=== PATIENT | female | born 1935 | race Caucasian/White ===

== ENCOUNTER 2022-03-01 18:49 | Emergency (ER) | payer MEDICARE, SELFPAY ==
[2022-03-01 19:06] VITALS: BP 160/79; PULSE 82; RESP 18; TEMP 36.6; O2SAT 98; BMI 26.6
--- NOTE | 2022-03-01 19:37 | CRLHL7_ITS ---
For Patients: As a result of the Century Cures Act, medical imaging exams and procedure reports are released immediately into your electronic medical record. You may view this report before your referring provider. If you have questions, please contact your health care provider. INDICATION: Shortness of breath. TECHNIQUE: AP portable chest. FINDINGS: Clear lungs. Normal heart size and pulmonary vascularity. Normal included skeleton. IMPRESSION: Negative portable chest. Dictated by Theodore Cline MD @ 03/01/2022 8:07:02 PM (Electronically Signed)
[2022-03-01 20:11] LABS: Basophils Absolute Auto 0.03 K/uL (0.00-0.30); Basophils Percent Auto 0.3 % (0.0-3.0); Eosinophils Absolute Auto 0.08 K/uL (0.00-0.50); Eosinophils Percent Auto 0.8 % (0.0-7.0); Hematocrit 42.5 % (33.0-51.0); Hemoglobin* 14.2 gm/dL (12.0-16.0); Immature Granulocytes Abs Auto 0.02 K/uL (0.00-0.30); Lymphocytes Percent Auto 16.4 % (20-44); Mean Corpuscular HGB Conc 33 gm/dL (32-36); Mean Corpuscular Hemoglobin 31 pg (26-34); Mean Corpuscular Volume 92 fL (80-100); Monocytes Percent Auto 10.6 % (0.0-11.0); Neutrophils Absolute Auto 7.34 K/uL (1.7-7.0); Neutrophils Percent Auto 71.7 % (42.0-72.0); Platelet Count* 274 K/uL (140-440); RDW Coefficient of Variation % 12.4 % (11.5-15.5); Red Blood Count 4.62 m/uL (4.00-5.20); White Blood Count* 10.24 K/uL (4.50-11.00)
[2022-03-01 20:13] LABS: Slide Review Reflex No
--- NOTE | 2022-03-01 20:14 | ED_ITS ---
HPI - General Adult General Chief complaint: Unspecified Complaint, Adult Stated complaint: Shortness of breath and upper extremity tingling Time Seen by Provider: 03/01/22 19:19 History of Present Illness HPI narrative: Patient is an 87-year-old woman with history of congestive heart failure who presents stating that she is having increasing difficulties with pins and needle sensation in her upper and lower extremities particularly at night. She has had no fevers no chills no night sweats no orthopnea no PND no nausea no vomiting no lower extremity edema. She states she is increasingly anxious and would like some help with her anxiety. Related Data Home Medications Medication Instructions Recorded Confirmed diltiazem HCl 240 mg mg PO 03/01/22 capsule,extended release 24 hr pantoprazole 40 mg tablet,delayed mg PO 03/01/22 release potassium chloride 20 mEq meq PO 03/01/22 tablet,extended release(part/cryst) sacubitril 97 mg-valsartan 103 mg tab 03/01/22 tablet (Entresto) torsemide 10 mg tablet mg 03/01/22 Allergies Allergy/AdvReac Type Severity Reaction Status Date / Time levofloxacin [From Levaquin] Allergy that was a Verified 03/01/22 19:12 bad one Quinolones Allergy Verified 03/01/22 19:12 diphenhydramine AdvReac Unknown Verified 03/01/22 19:12 [From Benadryl] metoprolol AdvReac Verified 03/01/22 19:12 Review of Systems Status of ROS: Reports: 10 or more systems reviewed and unremarkable except as noted in History and below PFSH PFS Social History Smoking Status: Former smoker How often do you have a drink containing alcohol: 4 or more times a week How many standard drinks containing alcohol do you have on a typical day: 1 or 2 AUDIT-C Alcohol total score: 4 Non-prescribed substance use: denies use Exam Narrative: Exam Narrative: EXAM GENERAL: Patient appears comfortable and well. EYES: No scleral icterus. ENT: Tympanic membranes and oropharynx normal. THYROID: no thyroid nodules or thyromegaly. LYMPH: No supraclavicular or cervical lymphadenopathy. SKIN: Visible skin seen during exam normal or with benign process only. EXT: No dependent lower extremity pedal edema. HEART: Regular rate and rhythm with no murmurs, rubs, or gallops. LUNGS: Clear to auscultation bilaterally with no crackles or wheezes. ABD: Soft, non tender, non distended. PSYCH: Good eye contact, speech is not pressured. Const: Vital Signs, click to edit/add: Vital Signs - 24 hr 03/01/22 19:06 03/01/22 20:21 Temperature 97.8 F Pulse Rate [Left P ulse Oximeter] 82 81 Respiratory Rate 18 18 Blood Pressure [Ri ght Upper Arm] 160/79 H 176/89 H Pulse Oximetry 98 96 Oxygen Delivery Me thod Room Air Room Air Course Course Hospital Course: Two-view of the chest is unremarkable upon my review EKG shows mild left axis deviation upon my review with no other acute abnormalities. CBC basic metabolic panel also unremarkable upon my review. Reevaluation(s) Reevaluation #1: Results reviewed with patient. Like assistance with her anxiety. Time: 20:30 Vital Signs Vital signs: Initial Vital Signs Temperature 97.8 F 03/01/22 19:06 Temperature Source Temporal Artery Scan 03/01/22 19:06 Pulse Rate 82 03/01/22 19:06 Respiratory Rate 18 03/01/22 19:06 Blood Pressure 160/79 H 03/01/22 19:06 Blood Pressure Mean 106 03/01/22 19:06 Blood Pressure Position Sitting 03/01/22 19:06 Pulse Oximetry 98 03/01/22 19:06 Oxygen Delivery Method 03/01/22 19:06 Vital Signs Temperature 97.8 F 03/01/22 19:06 Pulse Rate 82 03/01/22 19:06 Respiratory Rate 18 03/01/22 19:06 Blood Pressure 160/79 H 03/01/22 19:06 Pulse Oximetry 98 03/01/22 19:06 Oxygen Delivery Method 03/01/22 19:06 Temperature 97.8 F 03/01/22 19:06 Pulse Rate 81 03/01/22 20:21 Respiratory Rate 18 03/01/22 20:21 Blood Pressure 176/89 H 03/01/22 20:21 Pulse Oximetry 96 03/01/22 20:21 Oxygen Delivery Method 03/01/22 20:21 Medical Decision Making Lab Data Labs: Lab Results 03/01/22 Range/Units 19:58 WBC 10.24 (4.50-11.00) K/uL RBC 4.62 (4.00-5.20) m/uL Hgb 14.2 (12.0-16.0) gm/dL Hct 42.5 (33.0-51.0) % MCV 92 (80-100) fL MCH 31 (26-34) pg MCHC 33 (32-36) gm/dL RDW Coeff of [place] 12.4 (11.5-15.5) % Plt Count 274 (140-440) K/uL Neut % (Auto) 71.7 (42.0-72.0) % Lymph % (Auto) 16.4 L (20-44) % [place] % (Auto) 10.6 (0.0-11.0) % Eos % (Auto) 0.8 (0.0-7.0) % Baso % (Auto) 0.3 (0.0-3.0) % Neut # (Auto) 7.34 H (1.7-7.0) K/uL Lymph # (Auto) 1.70 (0.90-2.90) K/uL [place] # (Auto) 1.10 H (0.00-0.90) K/UL Eos # (Auto) 0.08 (0.00-0.50) K/uL Baso # (Auto) 0.03 (0.00-0.30) K/uL Abs Immat Gran (auto) 0.02 (0.00-0.30) K/uL Discharge Plan Discharge Clinical Impression: Anxiety Condition: Stable Instructions: Anxiety (ED) Activity Level: No Restrictions Discharge Diet: Regular Prescriptions: No Action diltiazem HCl 240 mg capsule,extended release 24hr PO torsemide 10 mg tablet potassium chloride 20 mEq tablet,ER particles/crystals PO Label Comments: TAKE 3 TABLETS BY MOUTH ONCE DAILY WITH A MEAL pantoprazole 40 mg tablet,delayed release (DR/EC) PO Label Comments: TAKE 1 TABLET BY MOUTH EVERY DAY FOR REFLUX Entresto 97-103 mg tablet Label Comments: TAKE 1 TABLET BY MOUTH TWICE DAILY Follow Up/Referrals: Jonnathan Cobian MD [Primary Care Provider] - Stand Alone Forms: [employer] Info Instructions
[2022-03-01 20:21] VITALS: BP 176/89; PULSE 81; RESP 18; O2SAT 96
[2022-03-01 20:34] LABS: Chloride* 100 mmol/L (96-114); Potassium* 3.9 mmol/L (3.6-5.1); Sodium* 134 mmol/L (135-149)
[2022-03-01 20:37] LABS: Blood Urea Nitrogen* 22 mg/dL (7-30); Carbon Dioxide* 23 mmol/L (20-32); Creatinine* 1.1 mg/dL (0.5-1.5); Est. Creatinine Clearance* 30.93; Estimated Glomerular Filt Rate 49 ml/min; Glucose* 110 mg/dL (60-115)
== END 2022-03-01 21:09 | disposition home or self-care (01) ==
PROVIDERS: Emergency Provider Internal Medicine; PCP Family Medicine
DX: F41.9 Anxiety disorder, unspecified (principal)
CPT/HCPCS: 36415; 71045; 80048; 85025; 93005; 99283; 99284; 99285

== ENCOUNTER 2023-02-24 06:47 | Outpatient (CLI) | payer MEDICARE, SELFPAY | END 2023-02-24 06:48 | disposition home or self-care (01) | PROVIDERS: PCP Internal Medicine; Visit Provider Family Medicine | DX: R30.0 Dysuria (principal) | CPT/HCPCS: 87086; 87186 ==

== ENCOUNTER 2023-03-03 13:44 | Outpatient (CLI) | payer MEDICARE, SELFPAY ==
--- NOTE | 2023-03-03 14:00 | CRLHL7_ITS ---
For Patients: As a result of the Century Cures Act, medical imaging exams and procedure reports are released immediately into your electronic medical record. You may view this report before your referring provider. If you have questions, please contact your health care provider. BILATERAL SCREENING MAMMOGRAM WITH COMPUTER-AIDED DETECTION TECHNIQUE: CC and MLO views were obtained. These mammographic images have been obtained using full-field digital technique. These mammographic images were interpreted with the benefit of computer-aided detection. COMPARISON FILM: 05/29/17, 04/18/16, 01/26/15. FINDINGS: There are scattered areas of fibroglandular density IMPRESSION: There is no radiographic evidence for malignancy. ASSESSMENT: BI-RADS Category 1: Negative RECOMMENDATION: Routine screening mammogram in 1 year. A lay language report of this examination will be provided to the patient. Geo Marin M.D. Diagnostic Radiologist [email or web address] [place]/carlitos be/Dictated by: Geo Marin MD @ 03/06/2023 1:08:00 PM (Electronically Signed)
== END 2023-03-03 13:45 | disposition home or self-care (01) ==
LOC: MAMMO 13:45
PROVIDERS: PCP Internal Medicine; Visit Provider Internal Medicine
DX: Z12.31 Encounter for screening mammogram for malignant neoplasm of breast (principal)
CPT/HCPCS: 77067

== ENCOUNTER 2023-04-01 14:08 | Emergency (ER) | payer MEDICARE, SELFPAY ==
[2023-04-01 14:19] VITALS: BP 155/70; PULSE 81; RESP 16; TEMP 36.9; O2SAT 97; BMI 29.4
[2023-04-01 14:24] LABS: Appearance Urine Clear (Clear); Bilirubin Urine Negative (Negative); Blood Urine Negative (Negative); Color Urine Yellow (Yellow); Glucose Urine Negative (Negative); Ketones Urine Negative (Negative); Leukocyte Esterase Urine 1+ (Negative); Nitrite Urine Negative (Negative); Protein Urine Negative (Negative); Urobilinogen Urine 0.2 (0.2-1.0); pH Urine 6.5 (5.0-8.5)
--- OUTSIDE RECORDS SUMMARY | 2023-04-01 14:35 | XMS_ITS | Continuity of Care Document ---
Author Name Unknown Organization [facility] Address [address] [address] [place] [address] Phone Care Team Providers Care Scientist/Engineer Name Role Phone Inocencio Lechuga MD Unavailable Unavailable Allergies, Adverse Reactions, Alerts Substance Reaction Status Criticality levofloxacin Active No Information DIPHENHYDRAMINE HCL Reaction Unknown Active No I nformation Quinolones Reaction Unknown Active No Informat ion Medications Medication Instructions Dosage Effective Dates (start - stop) Status Comments Advair Diskus 100 mcg-50 mcg/dose powder for inhalation inhale 1 puff by inhalation route every 6 hours - Active amlodipine 5 mg tablet take 1 tablet by oral route every day 5 MG - Active Imodium A-D 2 mg tablet take 1 tablet by oral route after 1st loose stool and 1 tablet (2 mg) after each next bowel movement; do not exceed 16 mg in 24hrs 2 MG - Active metoprolol tartrate 50 mg tablet take 1 tablet by oral route 2 times every day with meals 50 MG - Active colestipol 1 gram tablet take 2-4 tablet by mouth daily mid day. Avoid other meds 2 hrs before/after. - Active spironolactone 25 mg tablet take 0.5 tablet by ORAL route every day 12.5 MG - Active atorvastatin 20 mg tablet take 1 tablet by oral route every day 20 MG - Active Culturelle 10 billion cell capsule take 1 capsule by mouth 3 times daily - Active pantoprazole 40 mg tablet,delayed release take 1 tablet by oral route every day 40 MG - Active potassium chloride ER 20 mEq tablet,extended release take 1 tablet by oral route 2 times every day with food 20 MEQ - Active Procedures Procedure Date Offic/outpt E&m [facility] Offic/outpt E&m Estab Low-mod 6 Offic/outpt E&m Estab Mod-nj 2 16 Stool Kits Given C. Difficile Toxin Gene, GREGORIO Offic/outpt E&m Estab Mod-nj 2 16 Offic/outpt E&m Estab Low-mod 6 Offic/outpt E&m Estab Mod-nj 2 15 Breath Test Lactose Breath Test Fructose Sigmoidoscopy Flex; W/bx 1/mx 5 Level Iv-surg Path Gross/micro 15 Routine Serum Collection Offic/outpt E&m [facility] Routine Serum Collection C-reactive Prot Advance Directives Directive Yes / No Effective Date File Name No Information Encounters Encounter Description Practice Location Reason(s) For Visit Diagnoses Date Provider Providers Copied on Encounter [facility], [address] [address], [place], [id number], [place] tel:[phone] [facility] No Information 1 Ankush Painter. [address] [facility], [place], [id number] , [place]. tel: [phone] Offic/outpt E&m [facility], [address] [address], [place], [id number], [place] tel:[phone] [facility] GI Symptoms or Concerns (chief complaint) Lymphocytic colitisDietary counseling and surveillance 0 Sarwat Sun. [address] [facility], [address], [place], [id number] , [place]. [phone] Referring Provider: Referral Self. [facility], [address] [address], [place], [id number], [place] tel:[phone] [facility] No Information 0 Ankush Painter. [address] [address], [place], [place], [id number] , [place]. [phone] Offic/outpt E&m Estab Low-mod [facility], [address] [address], [place], [id number], [place] tel:[phone] [facility] GI Symptoms or Concerns (chief complaint) Gastroesophageal reflux disease, esophagitis presence not specifiedLymphoc ytic colitisDietary counseling and surveillanceElev ated blood-pressure reading, w/o diagnosis of htn 6 Hannah Alcantar. [address] [place] [address], [id number] , [place]. [phone] Referring Provider: Referral Self. Offic/outpt E&m Estab Mod-hi 2 [facility], [address] [address], [place], [id number], [place] tel:[phone] [facility] GI Symptoms or Concerns (chief complaint) Lymphocytic colitisDietary counseling and surveillanceElev ated blood-pressure reading, w/o diagnosis of htn 6 Geoff Monsalve. [address] [facility], [address] [address], [place], [place], [id number] , [place]. [phone] Referring Provider: Jonnathan Deleon, [address] [place] [address], [address]. tel:[phone] [facility], [address] [address], [place], [id number], [place] tel:[phone] [facility] Other specified noninfective gastroenteritis and colitis 6 Edstrshante Up. [address] [facility], [facility] [address], [facility] [place], [id number] , [place]. [phone] Referring Provider: Referral Self. Offic/outpt E&m Estab Mod-hi 2 [facility], [address] [address], [place], [id number], [place] tel:[phone] [facility] GI Symptoms or Concerns (chief complaint) Microscopic colitisDietary counseling and surveillance 6 Ankita Up. [address] [facility], [facility] [address], [facility] [place], [id number] , [place]. [phone] Referring Provider: Jonnathan Deleon, [address] [place] [address], [address]. tel:[phone] Offic/outpt E&m Estab Low-mod [facility], [address] [address], [place], [id number], [place] tel:[phone] [facility] GI Symptoms or Concerns (chief complaint) Microscopic colitisDiarrheaD ietary counseling and surveillance 6 Hannah Alcantar. [address] [facility], [address] [address], [facility] [place], [id number] , [place]. tel: [phone] Referring Provider: Referral Self. Offic/outpt E&m Estab Mod-hi 2 [facility], [address] [address], [place], [id number], [place] tel:[phone] [facility] GI Symptoms or Concerns (chief complaint) Microscopic colitis 5 Chyna Nolan. [address] [facility], [facility] [address], [facility] [place], [id number] , [place]. tel: [phone] Referring Provider: Referral Self. [facility], [address] [address], [place], [id number], [place] tel:[phone] [facility] No Information 5 Hannah Alcantar. [address] [facility], [facility] [address], [facility] [place], [id number] , [place]. tel: [phone] Referring Provider: Referral Self. [facility], [address] [address], [place], [id number], [place] tel:[phone] [facility] No Information 5 Hannah Alcantar. [address] [facility], [address] [address], [place], [place], [id number] , [place]. tel: [phone] Referring Provider: Referral Self. [facility], [address] [address], [place], [id number], [place] tel:[phone] [facility] Diarrhea, unspecifiedOther specified noninfective gastroenteritis and colitis 0 5 Hannah Alcantar. [address] [address], [facility] [place], [id number] , [place]. tel: [phone] Referring Provider: Referral Self. [facility], [address] [address], [place], [id number], [place] tel:[phone] [facility] No Information 0 5 Hannah Alcantar. [address] [address], [facility] [place], [id number] , [place]. tel: [phone] Referring Provider: Referral Self. [facility], [address] [address], [place], [id number], [place] tel:[phone] [facility] Diarrhea 5 Hannah Alcantar. [address] [address], [facility] [place], [id number] , [place]. tel: [phone] Referring Provider: Referral Self. Offic/outpt E&m New Mod-hi [facility], [address] [address], [place], [id number], [place] tel:[phone] [facility] GI Symptoms or Concerns (chief complaint) DiarrheaElevated blood-pressure reading, w/o diagnosis of htn 2 5 Hannah Alcantar. [facility] [address], [id number] , [place]. tel: [phone] Referring Provider: Referral Self. Family History Family Member Type Diagnosis Age At Onset Sister Problem (finding) Daughter Problem (finding) Alive and well Sister Problem (finding) GERD Sister Problem (finding) cancer of the esophagus Immunizations Vaccine Date Status Comments Seasonal trivalent influenza vaccine, adjuvanted, preservative free administered Note: [facility] bi-direct ional interface ; Source: Other Registry Seasonal trivalent influenza vaccine, adjuvanted, preservative free administered Note: [facility] bi-direct ional interface ; Source: Other Registry zoster vaccine recombinant administered N ote: [facility] bi-directional interface ; Source: Other Registry zoster vaccine recombinant administered N ote: [facility] bi-directional interface ; Source: Other Registry Seasonal trivalent influenza vaccine, adjuvanted, preservative free administered Note: [facility] bi-direct ional interface ; Source: Other Registry influenza, high dose seasona l, preservative-free administered Note: [facility] bi-direct ional interface ; Source: Other Registry Prevnar administered Note: [facility] bi-d irectional interface ; Source: Other Registry Pneumococcal conjugate PCV administere d Source: Other Registry Influenza virus vaccine, injectable, quadrivalent, split virus, preservative free, 3 years or older Fluarix Quad administered Source: Source Unspe cified influenza, high dose seasona l, preservative-free administered Note: [facility] bi-direct ional interface ; Source: Other Registry Influenza, seasonal, injectable, preservative free administered Note: [facility] bi-directional interface ; Source: Other Registry tetanus toxoid, reduced diphtheria toxoid, and acellular pertussis vaccine, adsorbed administered Note: [facility] bi-direct ional interface ; Source: Other Registry tetanus toxoid, reduced diphtheria toxoid, and acellular pertussis vaccine, adsorbed administered Note: [facility] bi-direct ional interface ; Source: Other Registry Pneumovax 23 administered Note: [facility] bi-d irectional interface ; Source: Other Registry Pneumo (2 yrs or older)(PPV) administered Source: Other Registry Influenza, seasonal, injectable, preservative free administered Note: [facility] bi-directional interface ; Source: Other Registry Influenza, seasonal, injectable administe red Note: [facility] bi- directional interface ; Source: Other Registry Influenza, seasonal, injectable administe red Note: [facility] bi- directional interface ; Source: Other Registry tetanus and diphtheria toxoi ds, adsorbed, preservative free, for adult use (5 Lf of tetanus toxoid and 2 Lf of diphtheria toxoid) administered Note: [facility] bi-direct ional interface ; Source: Other Registry Influenza, seasonal, injectable administe red Note: [facility] bi- directional interface ; Source: Other Registry Influenza, seasonal, injectable administe red Note: [facility] bi- directional interface ; Source: Other Registry Influenza, seasonal, injectable administe red Note: [facility] bi- directional interface ; Source: Other Registry Influenza, seasonal, injectable administe red Note: [facility] bi- directional interface ; Source: Other Registry Influenza, seasonal, injectable administe red Note: [facility] bi- directional interface ; Source: Other Registry influenza virus vaccine, unspecified formulation administered Note: [facility] bi-di rectional interface ; Source: Other Registry influenza virus vaccine, unspecified formulation administered Note: [facility] bi-di rectional interface ; Source: Other Registry influenza virus vaccine, unspecified formulation administered Note: [facility] bi-di rectional interface ; Source: Other Registry Pneumovax 23 administered Note: [facility] bi-d irectional interface ; Source: Other Registry influenza virus vaccine, unspecified formulation administered Note: [facility] bi-di rectional interface ; Source: Other Registry Pneumo (2 yrs or older)(PPV) administered Source: Source Unspecified Payers Payer name Insurance type Covered alliance party ID Authoriza tisabi(s) [employer] Choice 16 [id number] Social History Type Description Quantity Date Captured Comments Sex Female Smoking Status No Information Chief Complaint And Reason For Visit No Information Reason For Referral Reason For Referral No Information Plan Of Treatment Date Type Action Status Goal Lifestyle education regardin g diet completed Goal Lifestyle education regardin g diet completed Goal Lifestyle education regardin g diet completed Goal Lifestyle education regardin g diet completed Apr-04-2016 Goal Lifestyle education regardin g diet completed Goal Lifestyle education regardin g diet completed Referral Ordered: follow-up visit with Doctor or NPPA 3 Weeks Appointment date/timeframe: 06/16/2015 ordered History Of Present Illness Encounter Date Complaint History Of Archie nt Illness GI Symptoms or Concerns I had th e pleasure of meeting Ms. Hyun Norris as a new patient, self-referred for evaluation of lymphocytic colitis.Hyun was last seen at [facility] in 2015 for evaluation of chronic lymphocytic colitis. It appears that the lymphocytic colitis was diagnosed in 2014 and she was in symptomatic remission on Imodium 4 mg daily. She had continued using Imodium on a daily basis and her bowel habits were regular up until approximately 2 months ago. She says spontaneously she began having 4 to 5 bowel movements in a day every day. Bowel movements were watery, nonbloody, and she had no significant urgency or abdominal pain. There were no new medicines or other instigating factors that she could identify. Her symptoms culminated in dehydration and a brief admission to the hospital for hydration. She had stool studies performed there that showed no infection, and a CT scan of the chest, abdomen and pelvis was performed which was also normal without any evidence of colitis or enteritis. GI Symptoms or Concerns The gaby ent is a very pleasant woman we have followed [facility] for lymphocytic colitis. She was doing quite well with her lymphocytic colitis until she was seen in February. At that time, she developed frequent loose bowel movements seven to ten times a day with abdominal cramping. She initially tried cholestyramine with no improvement in her symptoms and then took Imodium and Pepto-Bismol and Pepto-Bismol did not improve her symptoms. She was seen in our office and she underwent stool studies and started Imodium. She four weeks later was again seen in our office and at that time, she just finished a Z-Geovanni and her symptoms again had become significantly worse. Repeat stool studies were negative. She was treating her symptoms in at that time with Imodium.The patient returns today reporting that she is significantly better. She was able to stop her Zoloft and she has not been taking any nonsteroidal anti-inflammatory agents for three to six months. She says GI Symptoms or Concerns Ms. Carlos berry returns with diarrhea. Last year, she was diagnosed with lymphocytic colitis. She responded really well to budesonide. Her symptoms returned this year. She tried cholestyramine with initial success. She also has been taking Imodium. It does not work consistently. She has been taking two tablets a day. She just finished a course of Pepto-Bismol. It did not help at all. She took a Z-Geovanni two weeks ago, for upper respiratory symptoms. Her diarrhea got better. She is now having recurrence of the diarrhea. It often will be okay in the morning, then she will have uncontrollable diarrhea all afternoon and evening. She feels a bit dehydrated. She has been checked repeatedly for celiac disease because she has a granddaughter with it. She has not had another course of budesonide because of the cost. GI Symptoms or Concerns This is a pleasant 81-year-old female presenting to clinic today to discuss diarrhea.Patient was initially seen through our clinic in May 2015 for chronic loose stools and diarrhea. A subsequent flexible sigmoidoscopy showed edema from the rectum to the descending colon and biopsies were consistent with mild increased intra-epithelial lymphocytosis of suggestive of lymphocytic colitis. She was given a prescription for budesonide and this seemed to resolve her symptoms. She contacted our office in September with recurrent symptoms and was given a prescription for cholestyramine given the budesonide had been very expensive for her. She followed up in clinic in October of this year at which time it was felt that her symptoms likely were more related to a viral syndrome rather than a flare of lymphocytic colitis. It was noted that she did seem to respond to cholestyramine at that time.She states that two weeks ago, she began developing recurrent constant diarrhea with 10 t GI Symptoms or Concerns Patient is a very pleasant 80-year-old woman whom we follow in the gastrointestinal clinic for lymphocytic colitis.Patient was diagnosed with lymphocytic colitis last year by biopsies at colonoscopy. At that time, she was started on budesonide and did quite well with budesonide and was able to discontinue the medicine without reoccurrence of her diarrhea. Recently, she returned from [place], and the day after she arrived home from [place], she developed acute diarrhea. Patient reports that she had watery, crampy diarrhea six bowel movements an hour that lasted eight to 10 hours. She had so much diarrhea that she had to wear a diaper. The symptoms lasted eight to 10 hours and then have been gradually improving since then. The next day, she would have three to four bowel movements in and hour and slowly her bowel movements have decreased. We started her on cholestyramine to see if we could improve her symptoms and she feels like with the cholestyramine her symptoms have sig GI Symptoms or Concerns Hyun is a 80-year-old female with a medical history of hypertension, hyperlipidemia, and heartburn who presents today in followup for chronic diarrhea.The patient initially established care at the beginning of May. She came in to be seen after having roughly two years of loose stool. She mentioned fairly episodic progression without any blood. She could have on a bad day up to eight to 10 times of loose stool per day with abdominal cramping prior to a bowel movement.The patient did have stool studies which included negative stool culture, negative giardia, and negative C. diff. Other blood work included a normal TSH and a negative celiac serology.Patient underwent testing here in clinic with breath tests primarily fructose breath test which is negative as well as a lactose breath test which was negative. Fecal fat was negative as well as cyclospora was negative. A 5-HIAA was negative as well. A flexible sigmoidoscopy was completed on June 02. There was GI Symptoms or Concerns The gaby david is a very pleasant 80-year-old woman who presents for workup of diarrhea.The patient reports that she has had two years of diarrhea. She reports usually her diarrhea is on and off, and she felt like it was something she had eaten. She had a full workup for which she had been negative and she was controlling diarrhea without difficulty until six weeks ago, when she developed profuse diarrhea. She has diarrhea every day eight to ten times, at least she says it is liquid and accompanied by significant amount of gas and cramping and mucus. She has not noted any blood in her stool.Workup in the past at [place] for her intermittent diarrhea included a colonoscopy with biopsies in May, which was negative and EGD in May with biopsies that were negative and those were of May of 2014. She also had blood work and stool studies there and an upper GI series all were negative.Workup here in [place] over the past six weeks has included stool tests, w Functional Status Date Functional Assessmen t No Information Instructions Date Instruction Additional Infor juliann 1. Continue Imodium 4 mg daily.2. Add colestipol 2 to 4 g per day.3. Follow up in 4 weeks, and if no improvement, consider budesonide and if still no improvement, then colonoscopy.Thank you so much for involving me in the care of Ms. Norris. Related to Lymphocytic colitis Lifestyle education regarding di et Related to Dietary counseling and surveillance Lifestyle education regarding di et Related to Dietary counseling and surveillance Lifestyle education regarding di et Related to Dietary counseling and surveillance Patient will undergo C. Diff and stool culture. She will look into the type of Gatorade that she is consuming and see if it contains the sugar free additives or substitutes and change the Gatorade she is taking if this is the case. If she continues to have diarrhea, I asked her to stop the cholestyramine and start Pepto-Bismol three tablets three times a day for six weeks. She can use Imodium in addition to this if need. She will contact her primary care physician regarding her low blood pressure. She will continue to avoid NSAIDs. She will follow up in clinic in six weeks. Related to Microscopic colitis Lifestyle education regarding di et Related to Dietary counseling and surveillance Lifestyle education regarding di et Related to Dietary counseling and surveillance Lifestyle education regarding di et Related to Dietary counseling and surveillance Assessments Type Assessment Date No Information Patient Care Teams Name Effective Dates (start - stop) Status Members No Information
--- OUTSIDE RECORDS SUMMARY | 2023-04-01 14:35 | XMS_ITS | Continuity of Care Document ---
Author Name Unknown Organization [facility] Address [address] [place] [address] Phone Care Team Providers Care Faculty Neuropsychologist Name Role Phone Geo Ashraf DO Unavailable Unavailable Allergies, Adverse Reactions, Alerts Substance Reaction Status Criticality Quinolones Rash Active No Information DIPHENHYDRAMINE HCL Active No Infor mation Medications Medication Instructions Dosage Effective Dates (start - stop) Status Comments Advair Diskus 250 mcg-50 mcg/dose powder for inhalation inhale 1 puff by inhalation route 2 times every day in the morning and evening approximately 12 hours apart 1.00 puff - Active Hyzaar 100 mg-25 mg tablet take 1 tablet by oral route every day 1.00 tablet - Active furosemide 20 mg tablet 1 po qd by oral route Not Available - Active potassium 99 mg tablet tad by oral route - Active Combivent 18 mcg-103 mcg/actuation aerosol inhaler prn by inhalation route - Active PREDNISONE (unknown strength) take 1.5 by ORAL route every day PRN Not Available - Active levocetirizine 5 mg tablet take 1 tablet by oral route every day in the evening 5 MG - Active Singulair 10 mg tablet take 1 tablet by oral route every day in the evening 10 MG - Active pantoprazole 40 mg tablet,delayed release 1 po qd by oral route Not Available - Active simvastatin 20 mg tablet take 1 tablet by oral route every day in the evening 20 MG - Active metoprolol tartrate 50 mg tablet take 1 tablet by oral route 2 times every day with meals 50 MG - Active CALCIUM (unknown strength) 1 po bid by oral route Not Available - Active clonidine 0.1 mg tablet take 1 Tablet by oral route every bedtime 1 Tablet - Active Fish Oil 1,000 mg capsule 2 po qd by oral route - Active fluticasone propionate (bulk) 100 % powder - Active Procedures Procedure Date Offic/outpt E&m Estab Mod-in 2 15 Offic/outpt E&m Estab Mod-hi 2 15 Capsule Endoscopy Thru Ileum Offic/outpt E&m Estab Mod-hi 4 14 Offic/outpt E&m Estab Low-mod 4 Colonoscopy Flex; W/bx 1/mx Ugi Endo; W/bx 1/mx Advance Directives Directive Yes / No Effective Date File Name No Information Encounters Encounter Description Practice Location Reason(s) For Visit Diagnoses Date Provider Providers Copied on Encounter Offic/outpt E&m Estab Mod-hi 2 [facility], [address], [id number], [place] tel:[phone] CAMA Hoffmann anemia (chief complaint)i rritable bowel syndrome (chief complaint) Anemia, unspecIBS [facility] Geo. [address], [id number], [place]. tel:[phone] Referring Provider: Isabelle Sow MD, [address], [place], [address]. tel:[phone] Offic/outpt E&m Estab Mod-in 2 [facility], [address], [id number], [place] tel:[phone] CAMA [place] Hoff[place] diarrhea (chief complaint) IBSAnemia, unspec [facility]. [address], [id number], [place]. tel:[phone] Referring Provider: Isabelle Sow MD, [address], [place], [address]. tel:[phone] [facility], [address], [id number], [place] tel:[phone] CAMA [place]mann Diarrhea [facility] Geo. [address], [place], [place], [id number], [place]. tel:[phone] Referring Provider: Isabelle Sow MD, [address], [place], [address]. tel:[phone] [facility], [address], [place], [place], [id number], [place] tel:[phone] CAMA [place] Hoffmann Diarrhea [facility] Geo. [address], [place], [place], [id number], [place]. tel:[phone] Referring Provider: Isabelle Sow MD, [address], [place], [address]. tel:[phone] [facility], [address], [place], [id number], [place] tel:[phone] SUMEETA [place] Hoffmann Diarrhea [facility] Geo. [address], [place], [id number], [place]. tel:[phone] Referring Provider: Isabelle Sow MD, [address], [place], [address]. tel:[phone] Offic/outpt E&m Estab Mod-hi 4 [facility], [address], [place], [id number], [place] tel:[phone] SUMEETA [place] diarrhea (chief complaint) Diarrhea [facility] Geo. [address], [id number], [place]. tel:[phone] Referring Provider: Isabelle Sow MD, [address], [place], [address]. tel:[phone] Offic/outpt E&m Estab Low-mod [facility], [address], [id number], [place] tel:[phone] [facility] follow up (chief complaint) Diarrhea Levi Flores. [address] [place], [address], [place]. tel:[phone] Referring Provider: Isabelle Sow MD, [address] [place], [address]. tel:[phone] [facility], [address] [facility], [id number], [place] tel:[phone] [facility] Diarrhea Levi Flores. [address] [place], [address], [place]. tel:[phone] Referring Provider: Nelson Diaz MD, [address] [place], [address]. Family History Family Member Type Diagnosis Age At Onset Problem (finding) Family history of asthm a Problem (finding) Family history of diabetes mellitus type 2 Problem (finding) No family history of Ca ncer, colon Payers Payer name Insurance type Covered democrat ID Authoriza tion(s) Medicare Claims Administrators [id number] [facility] [id number] Social History Type Description Quantity Date Captured Comments Alcohol Use Details Unknown Caffeine Use Details Unknown Tobacco Use Status Smoking Status No Information Sex Female Chief Complaint And Reason For Visit From encounter dated '09/19/2014 14:30'. anemia (chief complaint). Description: The problem is improving. Pertinent negatives include abdominal pain, anorexia, chills, constipation, diarrhea and vomiting. Additional information: Last hgb was 11. UGI/SBFT was ok and she feels well. irritable bowel syndrome (chief complaint). Description: The problem is improving. Relieving factors include defecation. Pertinent negatives include abdominal pain, fatigue, fever, sense of incomplete evacuation, stool urgency, straining with bowel movement and vomiting. Additional information: shenotes she is doing well form this standpoint and is going back home in a month Reason For Referral Reason For Referral No Information Plan Of Treatment Date Type Action Status Referral Ordered: Rad Exam; Esoph ordered Referral Ordered: Abdomen Ap & Additional Oblique ordered Referral Ordered: CT Abdomen/Pelvis W/Contrast ordered Referral Ordered: Capsule Endoscopy Thru Ileum ordered History Of Present Illness Encounter Date Complaint History Of Prese nt Illness irritable bowel syndrome The pro blem is improving. Relieving factors include defecation. Pertinent negatives include abdominal pain, fatigue, fever, sense of incomplete evacuation, stool urgency, straining with bowel movement and vomiting. Additional information: she notes she is doing well form this standpoint and is going back home in a month anemia The problem is i mproving. Pertinent negatives include abdominal pain, anorexia, chills, constipation, diarrhea and vomiting. Additional information: Last hgb was 11. UGI/SBFT was ok and she feels well. diarrhea The problem is i mproving. Pertinent negatives include blood in stool, change in appetite, fever, rash and vomiting. Additional information: she now notes she is having more constipation issues. Reviewed her studies. Capsule was retained in the stomach. diarrhea (comments) It eventuall y passed and UGI/SBFT was negative for any obstructive phenomenom. CT prior to that was ok. diarrhea Onset: 2 years a go. The patient describes it as watery. It occurs randomly. The problem is without change. She denies aggravating factors. She denies relieving factors. Associated symptoms include change in appetite, cramping (abdominal), fecal incontinence, rash and weight loss. Pertinent negatives include anorexia, bloating, blood in stool, fever, joint pain, nausea and vomiting. Additional information: she has lost 20 pounds. Colon and bx along with egd and bx with levi were ok. Had another colon in [facility] this summer and it was fine also. diarrhea (comments) She has to w ear Depends. This occurs 75% of the time and then she will have either normal or constipated stools. Gave stool specimen 2 weeks ago that was assumedly ok. Blood work has showed an anemia with Hgb 10 and normal MCV, iron, B12, celiac panel. Ca was 10.2 with normal PTH. K was 3.2 and CRP was very high at 31. She denies any greasy/oily stools. Getting stressed out about all this Hospital follow up Seen at [facility] with chronic diarrhea, nausea and vomiting. Had neg EGD and colon there with biopsies. GI sxs have totally resolved. Pt just feels fatigued now. Functional Status Date Functional Assessmen t No Information Instructions Date Instruction Additional Infor mation No Information Assessments Type Assessment Date assessment Anemia, unspec assessment IBS Mental Status Date Cognitive Assessment Orientation - [place] ed to time, place, person, situation.Normal Orientation Patient Care Teams Name Effective Dates (start - stop) Status Members No Information
[2023-04-01 14:41] LABS: RBC Urine 0-2 (0-2); Squamous Epithelial Cell Urine Few (None-Few); WBC Urine 0-2 (0-5)
--- NOTE | 2023-04-01 14:41 | ED_ITS ---
HPI - General Adult General Date Seen: 04/01/23 Chief complaint: Urogenital Problems, Female Stated complaint: Suspected bladder infection Time Seen by Provider: 04/01/23 14:22 Source: patient Mode of arrival: ambulatory Limitations: no limitations History of Present Illness HPI narrative: Patient is an 88-year-old woman who had a UTI about a month ago which was treated with an antibiotic, she does not remember which 1 but she recalls she thinks that she took it more than 2 times a day. She has several antibiotic allergies. She says it worked well and she improved but a few hours ago she developed significant dysuria again. Review of her records show that she grew out a pansensitive E coli on February 24. She denies abdominal or flank pain, fevers, vomiting or other symptoms, aside from dysuria, urgency, frequency. She says aside from last month and today she does not typically get significant problems with all urinary tract infections. Related Data Home Medications Medication Instructions Recorded Confirmed diltiazem HCl 240 mg mg PO 03/01/22 02/24/23 capsule,extended release 24 hr pantoprazole 40 mg tablet,delayed mg PO 03/01/22 02/24/23 release torsemide 10 mg tablet mg 03/01/22 02/24/23 loperamide 2 mg capsule 2 mg PO Q6H PRN 01/17/23 02/24/23 mecobalamin (vitamin B12) 1,000 1,000 mcg PO QDAY 01/17/23 02/24/23 mcg lozenges sacubitril 97 mg-valsartan 103 mg 1 tab PO BID 01/17/23 02/24/23 tablet (Entresto) Previous Rx's Medication Instructions Recorded eszopiclone 2 mg tablet (Lunesta) 2 mg PO QHS Insomnia #30 tabs 01/17/23 potassium chloride 20 mEq 20 meq PO QDAY Hypokalemia #90 tabs 01/17/23 tablet,extended release(part/cryst) escitalopram oxalate 5 mg tablet 5 mg PO QDAY Anxiety #30 tabs 02/14/23 (Lexapro) sulfamethoxazole 400 1 tab PO BID #14 tabs 02/24/23 mg-trimethoprim 80 mg tablet (Bactrim) alprazolam 0.5 mg tablet 0.5 mg PO QHS PRN insomnia #30 tabs 03/29/23 Allergies Allergy/AdvReac Type Severity Reaction Status Date / Time Cephalosporins Allergy Intermediate Diarrhea Verified 04/01/23 14:19 levofloxacin [From Levaquin] Allergy Numbness Verified 04/01/23 14:19 Quinolones Allergy Anaphylaxis Verified 04/01/23 14:19 escitalopram AdvReac Intermediate Diarrhea Verified 04/01/23 14:19 diphenhydramine AdvReac Edema Verified 04/01/23 14:19 [From Benadryl] metoprolol AdvReac Rash Verified 04/01/23 14:[facility] Medical History (Updated 04/01/23 @ 15:02 by Naomi Vásquez MD) History of methicillin resistant Staphylococcus aureus infection (2013) ?Z86.14 - Personal history of Methicillin resistant Staphylococcus aureus infection (ICD-10) History of malignant neoplasm of skin (2013) ?Z85.828 - Personal history of other malignant neoplasm of skin (ICD-10) History of colonic polyps (04/06/10) ?Z86.010 - Personal history of colonic polyps (ICD-10) Surgical History (Updated 01/18/23 @ 11:16 by Hemalatha Hauser) History of lumbar discectomy (2005) ?Z98.890 - Other specified postprocedural states (ICD-10) History of bone marrow biopsy (05/22/20) ?Z98.890 - Other specified postprocedural states (ICD-10) History of hysterectomy (1997) ?Z90.710 - Acquired absence of both cervix and uterus (ICD-10) History of cataract extraction ?Z98.49 - Cataract extraction status, unspecified eye (ICD-10) History of arthroscopy of right knee (03/20/08) ?Z98.890 - Other specified postprocedural states (ICD-10) Family History (Updated 01/18/23 @ 11:17 by Hemalatha Hauser) Mother Coronary artery disease High blood pressure Father Coronary artery disease Brother Coronary artery disease High blood pressure Sister Esophageal cancer High blood pressure Social History (Updated 01/17/23 @ 13:40 by Etelvina Colon ~ DARIUS) What is your current living situation?: I presently have a place to live Problems where you live: no known problems In the past 12 months, utilities in danger of being shut off: no Smoking Status: Never smoker Do you use any of these nicotine containing products: None Second hand tobacco smoke exposure: No How often do you have a drink containing alcohol: 4 or more times a week How many standard drinks containing alcohol do you have on a typical day: 1 or 2 How often do you have six or more drinks on one occasion: Never AUDIT-C Alcohol total score: 4 Non-prescribed substance use: denies use How often does anyone, including family, friends and others, physically hurt you : How often does anyone, including family, friends and others, insult or talk down to you: How often does anyone, including family, friends and others, threaten you with harm: How often does anyone, including family, friends and others, scream or curse at you: Little interest or pleasure in doing things: not at all Feeling down, depressed, or hopeless: not at all service: No Exam Narrative: Exam Narrative: Vital signs reviewed, afebrile. Abdomen nontender, no CVA tenderness. Skin: Warm dry well perfused. Const: Vital Signs, click to edit/add: Vital Signs - 24 hr 04/01/23 14:19 Temperature 98.4 F Pulse Rate [Pulse Oximeter] 81 Respiratory Rate 16 Blood Pressure [Le ft Upper Arm] 155/70 H Pulse Oximetry 97 Oxygen Delivery Me thod Room Air Documenting provider has reviewed patient's vital signs: yes Course Course ED Course: UA today is negative. Patient really feel strongly that symptoms feel exactly like her previous UTI. She has only had symptoms for few hours and I suppose it is possible that the UA is lagging behind symptoms. I have agreed to cover her with an antibiotic, her allergy profile limits options and so I am putting her back on Bactrim. Discussed with her that at this time the urinalysis does not really supported diagnosis of UTI. She does not feel that this is likely related to something like yeast vaginitis her atrophic vaginitis. She has an appointment with Dr. Vaca next week and I have stress that they should discuss this further if symptoms are not entirely gone. Also discussed that peridium is an option for symptomatic control if she is not better over the next couple of days. For worsening such as fevers, vomiting, chills etcetera return to the emergency department. Vital Signs Vital signs: Initial Vital Signs Temperature 98.4 F 04/01/23 14:19 Temperature Source Temporal Artery Scan 04/01/23 14:19 Pulse Rate 81 04/01/23 14:19 Respiratory Rate 16 04/01/23 14:19 Blood Pressure 155/70 H 04/01/23 14:19 Blood Pressure Mean 98 04/01/23 14:19 Blood Pressure Position Sitting 04/01/23 14:19 Pulse Oximetry 97 04/01/23 14:19 Oxygen Delivery Method Room Air 04/01/23 14:19 Vital Signs Temperature 98.4 F 04/01/23 14:19 Pulse Rate 81 04/01/23 14:19 Respiratory Rate 16 04/01/23 14:19 Blood Pressure 155/70 H 04/01/23 14:19 Pulse Oximetry 97 04/01/23 14:19 Oxygen Delivery Method Room Air 04/01/23 14:19 Temperature 98.4 F 04/01/23 14:19 Pulse Rate 81 04/01/23 14:19 Respiratory Rate 16 04/01/23 14:19 Blood Pressure 155/70 H 04/01/23 14:19 Pulse Oximetry 97 04/01/23 14:19 Oxygen Delivery Method Room Air 04/01/23 14:19 Medical Decision Making Lab Data Labs: Lab Results 04/01/23 Range/Units 14:15 Urine Color Yellow (Yellow) Urine Appearance Clear (Clear) Urine pH 6.5 (5.0-8.5) Ur Specific [place] 1.010 (1.000-1.030) Urine Protein Negative (Negative) Urine Glucose (UA) Negative (Negative) Urine Ketones Negative (Negative) Urine Blood Negative (Negative) Urine Nitrite Negative (Negative) Urine Bilirubin Negative (Negative) Urine Urobilinogen 0.2 (0.2-1.0) Ur Leukocyte Esterase 1+ A (Negative) Urine RBC 0-2 (0-2) Urine WBC 0-2 (0-5) Ur Squamous Epith Cells Few (None-Few) Urine Bacteria None (None) Discharge Plan Discharge Clinical Impression: Dysuria Patient Disposition: Home, Self-Care Condition: Stable Instructions: Dysuria (ED) Additional Instructions: I am prescribing an antibiotic today as discussed. Your urinalysis however does not really suggest that your symptoms are caused by a bladder infection, therefore make sure to follow-up with Dr. Vaca next week as symptoms may have a different cause. If at any time you develop worsening symptoms such as fever, vomiting, abdominal pain etcetera, return to the emergency department. 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 Prescriptions: No Action Entresto 97-103 mg tablet 1 tab PO BID loperamide 2 mg capsule 2 mg PO Q6H PRN mecobalamin (vitamin B12) 1,000 mcg lozenge 1,000 mcg PO QDAY Rx Instructions: allow to dissolve in mouth OR may chew lightly before swallowing eszopiclone [Lunesta] 2 mg tablet 2 mg PO QHS Qty: 30 0RF potassium chloride 20 mEq tablet,ER particles/crystals 20 meq PO QDAY Qty: 90 3RF sulfamethoxazole-trimethoprim [Bactrim] 400-80 mg tablet 1 tab PO BID Qty: 14 0RF escitalopram oxalate [Lexapro] 5 mg tablet 5 mg PO QDAY Qty: 30 3RF diltiazem HCl 240 mg capsule,extended release 24hr PO torsemide 10 mg tablet pantoprazole 40 mg tablet,delayed release (DR/EC) PO Patient Comments: TAKE 1 TABLET BY MOUTH EVERY DAY FOR REFLUX alprazolam 0.5 mg tablet 0.5 mg PO QHS PRN (Reason: insomnia) Qty: 30 0RF Follow Up/Referrals: Fred Vaca MD [Primary Care Provider] - Stand Alone Forms: Elli Info Instructions
== END 2023-04-01 15:17 | disposition home or self-care (01) ==
PROVIDERS: Emergency Provider Emergency Medicine; PCP Internal Medicine
DX: R30.0 Dysuria (principal)
CPT/HCPCS: 81001; 99283

== ENCOUNTER 2023-04-04 10:29 | Outpatient (CLI) | payer MEDICARE, SELFPAY | END 2023-04-04 10:30 | disposition home or self-care (01) | PROVIDERS: PCP Internal Medicine; Visit Provider Internal Medicine | DX: R30.0 Dysuria (principal); E03.9 Hypothyroidism, unspecified; E78.5 Hyperlipidemia, unspecified | CPT/HCPCS: 80053; 84443; 87086; 87186 ==

== ENCOUNTER 2023-06-27 10:15 | Outpatient (CLI) | payer MEDICARE, SELFPAY ==
--- NOTE | 2023-06-27 10:45 | CRLHL7_ITS ---
For Patients: As a result of the Cures Act, medical imaging exams and procedure reports are released immediately into your electronic medical record. You may view this report before your referring provider. If you have questions, please contact your health care provider. DIGITAL DIAGNOSTIC LEFT MAMMOGRAM USING TOMOSYNTHESIS AND COMPUTER-AIDED DETECTION LEFT BREAST ULTRASOUND CLINICAL HISTORY: LEFT breast soreness. COMPARISON: 03/03/2023, 05/29/2017. TECHNIQUE: Digital LEFT mammogram in two projections. Tomosynthesis and CAD utilized. Real-time ultrasound imaging of LEFT breast with imaging documentation. BREAST COMPOSITION: The breasts are almost entirely fatty. FINDINGS: 3D CC and 3D MLO LEFT breast mammogram images submitted. No suspicious masses or architectural distortion. No suspicious calcifications or adenopathy. Targeted LEFT breast ultrasound performed in the periareolar tissues. No fibrocystic change or solid mass. Normal breast tissue is present. No suspicious findings. IMPRESSION: No evidence of malignancy. RECOMMENDATIONS: Routine annual BILATERAL screening mammography. Results and recommendations discussed with the patient. BI-RADS Category 2: Benign A lay language report of this examination will be provided to the patient. Dictated by Geo Marin MD @ 06/27/2023 12:16:16 PM darrelj/Dictated by: Geo Marin MD @ 06/27/2023 12:16:00 PM (Electronically Signed)
--- NOTE | 2023-06-27 11:15 | CRLHL7_ITS ---
For Patients: As a result of the Century Cures Act, medical imaging exams and procedure reports are released immediately into your electronic medical record. You may view this report before your referring provider. If you have questions, please contact your health care provider. PLEASE SEE DIGITAL DIAGNSOTIC LEFT MAMMOGRAM PERFORMED SAME DAY CRL:hdoa drummond/Dictated by: Geo Marin MD @ 06/27/2023 12:16:00 PM (Electronically Signed)
== END 2023-06-27 10:16 | disposition home or self-care (01) ==
LOC: MAMMO 10:16
PROVIDERS: PCP Internal Medicine; Visit Provider Internal Medicine
DX: N64.4 Mastodynia (principal)
CPT/HCPCS: 76642; 77065; G0279

== ENCOUNTER 2023-10-02 11:15 | Outpatient (RCR) | payer MEDICARE, SELFPAY ==
--- NOTE | 2023-09-18 14:55 | PT.OPE ---
PT [place] Outpatient Eval PT [facility] Outpatient Eval Start: 09/18/23 14:35 Freq: Status: Active Protocol: Document 09/18/23 14:36 EILEEN (Rec: 09/18/23 14:54 EILEEN [id number]) E-signed By Andrei Wilhelm, PT, ATC Physical Therapy Outpatient Evaluation Insurance Information Insurance Name Medicare B Medical Diagnosis M75.102 Unspecified rotator cuff tear or rupture of left shoulder, not traumatic M19.012 Primary osteoarthritis , left shoulder Treating Diagnosis L shld pain Referring MD Dillon Subjective Subjective Hyun reports constant left shoulder pain, 3/10 at rest and 8-9/10 with active movement. Progressive worsening over the past few months as she has assisted her with his care needs ( lifting him and walker or wheelchair). No MRI yet but xrays did show the presence of OA and spurring within the L glenohumeral joint. No PMHx of L shoulder injury or previous pain episodes. Hyun is left handed dominant. Symptoms create difficulty with ADL's and care for , also with sleeping. Injection- cortisone on 08/24/23, but this did not change her symptoms. Date of Last Physician Visit 09/14/23 Current Work Status Retired Preferred Name Hyun Precautions Therapy Limitations/Systems Review Not Limited Objective Range of Motion R shld AROM: [id number] L shld AROM: 150, 70, 5, 30 Passive ROM R: [id number] Passive ROM L: 155, 90, 45, 60 Strength R 5/5 all patterns L Flex 3+/5, ABD 3/5, ER and IR 2/5 Palpation Tender in the subacromial space and anterior shoulder- long head biceps Assessment Assessment/Impression Hyun is a pleasant 88 year old , left handed, woman experiencing constant L shoulder pain. Her pain and weakness creates difficulties with most ADL's and especially providing assistance to her who just had lower back surgery. Her arthrokinematic mobility is likely improper due to weakness/tearing in her cuff tendons. Skilled PT is recommended to lessen current pain amounts, encourage improved arthrokinematic mobility, improve ST and GH movement patterns and allow less compensation with ADL's and assistive care. Plan of Care Rehabilitation Potential Good Physical Therapy Goals 1.Independent and correct performance with L shoulder AAROM, scap stability and light shoulder strength ex.s. 2.Lessen L shld pain at rest to 1/10 and pain with use to 4 /10-ADL's and care of . 3.Improved sleeping ability, < 3 interruptions from pain per evening. Coordination/Communication With Referral Source Treatment Plan/Direct Interventions Joint Mobilization,Manual Therapy,Therapeutic Activities ,Therapeutic Exercises Direct Interventions Clarification Kinesiotaping Comments Frequency/Duration 1-2x per week 12 visits Patient Will Be Discharged From Therapy Independent w/HEP, Independently Progressing Evaluation Billing Untimed Code Treatment Minutes 30 PT Eval No Charge No Complexity Low Certification Information Initial Certification Date 09/18/23 Ending Certification Date 12/17/23 Provider Signature Shows Agreement With POC & Medical Necessity Physician Signature & Date Requested Please Sign/Date Here Physician Comment/Change : Physician NPI Number #
== END 2023-12-22 10:29 | disposition home or self-care (01) ==
PROVIDERS: PCP Internal Medicine; Visit Provider Orthopaedic Surgery Sports Medicine
DX: M75.102 Unspecified rotator cuff tear or rupture of left shoulder, not specified as traumatic (principal); M19.012 Primary osteoarthritis, left shoulder; M25.512 Pain in left shoulder; Z51.89 Encounter for other specified aftercare
CPT/HCPCS: 97110; 97140; 97161

== ENCOUNTER 2023-11-21 10:07 | Outpatient (CLI) | payer MEDICARE, SELFPAY ==
--- OUTSIDE RECORDS SUMMARY | 2023-11-24 11:29 | XMS_ITS | Clinical Summary ---
Author Name Unknown Organization [facility] Address [place], [place] [address] Care Team Providers Care Law Clerk Name Role Phone Chinyere Parnell NP Unavailable [phone] Nina Chaney MD Unavailable [phone] Jose Guardado MD Primary Care Provider [phone] Allergies Active Allergy Reactions Criticality Noted Date Comments Diphenhydramine Edema 01/17/2007 As of Mar 2017: taking Acetaminophen (Tylenol) PM ( tylenol and benadryl). Levofloxacin Other - Describe In Comment Field 01/17/2007 numb from top - boattom Metoprolol Rash Low 10/07/2020 Quinolones Syncope,Throat Swelling/Closing,Rash 07/01/2014 Medications Medication Sig Dispensed Refills Start Date End Date Status loperamide (IMODIUM A-D) 2 mg tabletIndications:D iarrhea, unspecified type Take 4mg by mouth with 1st loose stool, then 2mg with each subsequent loose stool. Max 16 mg in 24 hrs 0 06/04/2020 Active miscellaneous medical supply (BLOOD PRESSURE CUFF) miscIndications:Patricia méndez hypertension As directed. Home blood pressure monitoring for Essential hypertension Diagnosis. Upper arm automatic Cuff. 1 Each 06/19/2020 Active medical supply, miscellaneous (GRADUATED COMPRESSION STOCKINGS)Indicatio ns:Bilateral lower extremity edema For personal use. Length: calf Strength: 16-20 mmHg Circumference in cm: For calf: Ankle 28.5cm, Calf 40cm, Ankle to calf length 36cm. 1 Packet 07/30/2020 Active ENTRESTO 97 MG-103 MG TABLET 97-103 mg tablet Take 1 Tablet by mouth 2 times daily. 02/08/2021 Active torsemide (DEMADEX) 10 mg tablet Take 2 Tablets (20 mg) by mouth once daily. 0 03/25/2021 Active ALPRAZolam (XANAX) 0.25 mg tabletIndications:P anic attack Take 1 tablet by mouth daily as needed for a panic attack. 10 Tablet 04/06/2022 Active cyanocobalamin (Vitamin B-12) 1,000 mcg tabletIndications:V itamin B12 deficiency Take 1 Tablet (1,000 mcg) by mouth once daily. 90 Tablet 3 04/28/2022 Active hydrocortisone 2.5% creamIndications:De rmatitis of eyelid of left eye, unspecified type Apply topically to affected area(s) two times daily. 30 g 07/01/2022 Active mirtazapine (REMERON) 7.5 mg tabletIndications:G eneralized anxiety disorder Take 1 Tablet (7.5 mg) by mouth at bedtime. 30 Tablet 2 11/14/2022 Active potassium chloride (KLOR-CON) 20 mEq extended-release tablet (part/cryst)Indicat ions:SVT (supraventricular tachycardia) (HC),Hypokalemia TAKE 3 TABLETS BY MOUTH ONCE DAILY WITH A MEAL 90 Tablet 12/13/2022 Active famotidine (PEPCID) 40 mg tabletIndications:C hronic GERD TAKE 1 TABLET(40 MG) BY MOUTH EVERY DAY 90 Tablet 1 02/23/2023 Active dilTIAZem CD (CARDIZEM CD) 240 mg extended release 24 hr capsuleIndications: SVT (supraventricular tachycardia) (HC) TAKE 1 CAPSULE(240 MG) BY MOUTH EVERY DAY BEFORE A MEAL 90 Capsule 07/14/2023 Active Active Problems Problem Noted Date Diagnosed Date Heart failure with preserved ejection fraction, unspecified HF chronicity 11/14/2022 Vitamin B12 deficiency 04/28/2022 Vitamin D deficiency, unspecified 04/28/2022 Generalized anxiety disorder 03/09/2022 Stage 3b chronic kidney disease (CKD) 11/21/2021 Overview: October 2021: Creatinine worsened to 1.5, GFR 34, needs recheck. Racing heart beat 07/04/2020 Paroxysmal SVT (supraventricular tachycardia) ACP (advance care planning) 06/25/2020 Leukocytosis 06/25/2020 Overview: July 2020: Peripheral smear showing mild leukocytosis without obvious cause. Itching due to drug 06/15/2020 Overview: 2019: ongoing itching, has seen 2 Management Consultant, had 2 skin biopsy, Though to be a drug rash. May 2020: now stopping Metoprolol . 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 Chaney. Chronic cough 08/04/2016 Overview: Azithromycin. Stopped losartan, no improvement. Chest x-ray. Jul 2016: augmentin caused diarrhea. and referral to Dr. Cooney. Chest CT negative. May 2017: azithromycin again. Aug 2017: Chronic cough, saw ENT Dr Vásquez, Lymphocytic colitis 06/19/2015 Overview: Diagnosis made by Dr. Young of [facility], on biopsy May 2015, symptoms improved with budesonide 9mg orally. Mar 2016: symptoms recurrent. Lymphocytic colitis often is recurrent.?? It is linked to two medications you are taking - pantoprazole and Zoloft.?? I would stop both.?? If in two weeks you are still having problems, would do another course of budesonide.?? It may be available more cheaply from [facility].?? It is fine to increase Imodium to 6 pills daily.?? If your symptoms worsen, need to consider another test for C diff as you recently took antibiotics. from GI Consult note. follow up. Diarrhea 05/13/2015 Overview: 2013 and 2014: recurrent. Had work up in [place] 2013. Then Consult with Dr. Tanner April 2015 stool studies negative. Then Consult with Dr. Young of [facility], recommending Flex Sig and stop sertraline (Zoloft). May 2015: Fructose breath test and repeat stool studies negative. Sigmoidoscopy: COLON, LEFT RANDOM, BIOPSY: Mild surface intraepithlial lymphocytosis suggestive of lymphocytic colitis. Symptoms resolved with oral budesonide. Hyponatremia 03/03/2015 Overview: Feb 2015: Sodium 130. January 2016: Sodium 129. Primary osteoarthritis of both knees 01/30/2015 Overview: January 2015: x-rays bilateral knees. 2015: Dr. Elizalde did 1 cortisone and 1 hyaluronic acid injection to each knee. Mar 2017: Dr. Cobian did bilateral cortisone knee injections: great improvement. Aug 2017: Dr. Cobian did bilateral cortisone knee injections. Monocytosis 01/30/2015 Overview: Patient reports Leukocytosis dating back to her 20's. January 2015: peripheral smear showed no abnormality for WBC. UTI (lower urinary tract infection) 11/30/2014 Overview: November 2014: UTI, E Coli, pansensitive, treatment with bactrim. December 2019: UTI [facility], culture proteus > 100,000. Hypokalemia 11/30/2014 Prediabetes 11/30/2014 Overview: November 2014: fasting 102, Hemoglobin A1c was 6.3. Unspecified anemia 04/08/2010 Overview: November 2014: Hemoglobin 11.4. December;January 2015: Hemoglobin 11.3, ordered repeat CBC, retic, and peripheral smear shows mild anemia, normal WBC, no dysplasia, some rouleau, so ?consider SPEP? July 2020: Peripheral smear showing mild leukocytosis without obvious cause. Colon polyps 04/06/2010 Overview: Colonoscopy 03/2010 polyps repeat in 3 years Mixed hyperlipidemia 04/16/2009 Overview: May 2015: Was on Simvastatin (Zocor), due to possible trigger for lymphocytic colitis, stopping statin, Consider recheck Cholesterol. October 2019: Severe itchy rash, stopped Atorvastatin (Lipitor) to see if cause, not restarting. Unspecified asthma(493.90) 04/17/2007 SVT (supraventricular tachycardia) 01/17/2007 Overview: June 2020: started on diltiazem, Symptoms started with blood pressure adjustment and some stress. June 2020: Hospitalized 2nd time, and diltiazem increased. Essential hypertension 01/17/2007 Overview: January 2015: blood pressure slightly low, stopping clonidine, continue losartan/HCTZ and metoprolol. Mar 2015: stopping clonidine. October 2015: mildly low blood pressure, stop hydrochlorothiazide and continue other meds. May 2016: Stopping Losartan due to cough only. Spironolactone added. Feb 2020: stop amlodipine due to swelling. May 2020: Due to continued itching and rash, Dermatology requested stopping Metoprolol tartrate because of itching. Starting Hydrochlorothiazide for blood pressure. May 2020: Blood pressure was high, so was put on Metoprolol Succinate instead of previous Metoprolol tartrate and did not restart amlodipine. Itching started within 2 days of Metoprolol . June 2020: stopping Metoprolol because of itching. placing on amlodipine 10mg and hydrochlorothiazide 25mg morning. June 2020: Hospitalized 2nd time, and diltiazem increased. Nausea and vomiting Overview: Work up at [facility] and [place]. May 2015: work up diagnosis lymphocytic colitis, symptoms improved with steroid. BCC (basal cell carcinoma), face Overview: Right side of nose, Derm Dr. Golden Resolved Problems Problem Noted Date Diagnosed Date Resolved Date Type 2 diabetes, HbA1C goal < 8% 10/20/2021 11/14/2022 Acute renal failure superimp osed on stage 3 chronic kidney disease, unspecified acute renal failure type, unspecified whether stage 3a or 3b CKD 10/20/2021 11/14/2022 Anxiety 06/25/2020 11/14/2022 Overview: June 2020: starting sertraline (Zoloft). Mar 2021: Sertraline (Zoloft) 50mg increased from 25mg. Acquired hypothyroidism 06/19/20152 10/2022 Overview: diagnosis [place], approximately 2011, was on Levothyroxine 25mcg but ran out and not taking Apr 2015 when TSH was normal, no medication indicated at this time. Adjustment disorder with mix ed anxiety and depressed mood 03/03/2015 11/14/2022 Overview: New symptoms Summer 2014, started sertraline (Zoloft). Mar 2015: doubled sertraline (Zoloft) to 50mg. Immunizations Name Administration Dates Next Due Amb Influenza, Inact (High-d ose) (Flu Clinic Only) 05/13/2016 COVID-19 vaccine (ZootRock-Bio NTech 30mcg/0.3mL) 12YO+ BIVALENT PF, MDV 04/11/2022 COVID-19 vaccine (Pfizer-Bio NTech 30mcg/0.3mL) PF, MDV 09/19/2020,08/29/2020 Influenza, High-dose Inactivated 04/02/2015 Influenza, IIV3 (Age >=3 years) 04/08/20,04/08/2009,05/02/2008,2006 Influenza, Inactivated AIIV4 (Age 65+ Years) Preserv Free 04/06/2022,04/17/2021,04/06/2020 Influenza, Inactivated IIV3 (Age 65+ Years) Preserv Free 05/01/2019,03/29/2018,04/06/2017 Pneumococcal Poly,23-Valent (Pneumovax) 07/24/2011,05/15/1996 Pneumococcal conj 13-Valent (Prevnar 13) 07/09/2015 Td (Age >=7 Years) 01/07/2021 Td, Preservative Free (age > = 7 Years) 03/14/2008 Tdap 04/09/2012,07/24/2011 Zoster (Shingrix-RZV, recombinant) 03/10/2018, Zoster (Zostavax-ZVL, live) 12/25/2007 Family History Medical History Relation Name Comments Heart Disease Brother 1 Heart Disease Brother 2 Heart Disease Father Other Grandchild Celiac. Heart Disease Mother Cancer Sister Esophagus Relation Name Status Comments Brother 1 Brother 2 Father Grandchild Mother Sister Social History Tobacco Use Types Packs/Day Years Used Date Smoking Tobacco: Former Cigarettes 0.5 12 1 950 - 07/24/1961 Smokeless Tobacco: Never Tobacco Cessation:Counseling Given: Not Answered Alcohol Use Standard Drinks/Week Comments Yes 0 (1 standard drink = 0.6 oz pure alcohol) social, 1 drink per day wine as of 2014. PHQ-2 Answer Date Recorded PHQ-2 TOTAL SCORE 0 04/27/2022 Social Connections Answer Date Recorded Frequency of Communication with Friends and Fami ly Not on file 11/20/2022 Financial Resource Strain Answer Date R ecorded Difficulty of Paying Living Expenses 3 11/18/2021 Difficulty of Paying Living Expenses Not on file 11/18/2021 Food Insecurity Answer Date Recorded Worried About Running Out of Food in the Last Ye ar 1 11/18/2021 Transportation Needs Answer Date Record ed Lack of Transportation (Medical) 1 11/18/2021 Housing Stability Answer Date Recorded Unable to Pay for Housing in the Last Year 1 11/18/2021 Sex and Gender Information Value Date Recorded Sex Assigned at Not on file Gender Identity Not on file Sexual Orientation Not on file Obstetrics History Para Term AB IAB SAB Ectopic Multiple Livin g Live Births 2 2 Date Outcome GA Total Labor Labor/2nd/3rd Weight Sex Delivery Anes PTL Kim A1 A5 Name Cl in 11/19 F Vag 03/02 F Vag-Force ps Last Filed Vital Signs Vital Sign Reading Time Taken Comments Blood Pressure 130/60 11/14/2022 1:41 PM CDT Pulse 84 11/14/2022 1:41 PM CDT Temperature 36.8 ??C (98.2 ??F) 08/16/2022 2:01 PM CS T Respiratory Rate 16 08/16/2022 2:01 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[employer] Oxygen Saturation 100% 11/14/2022 1:41 PM CDT Inhaled Oxygen Concentration - - Weight 75.1 kg (165 lb 8 oz) 11/14/2022 1:41 PM CDT Height 161.3 cm (5' 3.5) 07/01/2022 12:47 PM CS T Body Mass Index 28.86 07/01/2022 12:47 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[employer] Plan of Treatment Health Maintenance Due Date Last Done Comments COVID-19 vaccine series ( season) 2023 04/11/2022, 09/19/2020, 08/29/2020 Medicare Wellness for age 65+ 04/07/2023 04/06/2022, 11/22/2010 Depression screening for age 12+ 04/27/2023 04/27/2022, 04/06/2022, 04/06/2022, Additional history exists BMI (ht and wt on same day) for age 18+ 07/01/2023 07/01/2022, 04/06/2022, 10/20/2021, Additional history exists Influenza for age 65+ 03/24/2024 04/06/2022 , 04/17/2021, 04/06/2020, Additional history exists Tetanus booster 01/07/2031 01/07/2021, 03/24, 07/24/2011, Additional history exists Tdap Completed 04/09/2012, 07/24/2011 Pneumococcal series for age 65+ Completed 07/09/2015, 07/24/2011, 05/15/1996 DEXA/DXA scan for age 65+ Completed 01/02/2018, Zoster (shingles) series for age 50+ Completed 03/10/2018, 12/25/2017, 12/25/2007 Procedures Procedure Name Priority Date/Time Associated Diagnosis Comments XR DXA BONE DENSITY 2 SITES AXIAL Routine 01/02/2018 1:58 PM CDT Other specified menopausal and perimenopausal disorders At risk for decreased bone density from Last 3 Months or Most Recently Relevant to Health Maintenance Results * XR DXA BONE DENSITY 2 SITES AXIAL (01/02/2018 1:58 PM CDT) Anatomical Region Laterality Modality Spine, HIPS, HIPL, HIPR Other Narrative 01/12/2018 4:36 PM CDT Please see scanned document for results of this study. Jonnathan Cobian MD DEXA from Last 3 Months or Most Recently Relevant to Health Maintenance Additional Health Concerns Infection Onset Date Last Indicated MRSA Clearance Comment:Infection Control Note: Hx of MRSA, surveillance criteria met, no need for further testing or isolation precautions. Do not delete or resolve the infection flag. 05/21/2020 05/21/2020 Advance Directives Documents on File Type Date Recorded Patient Composition Worker Expl anation Healthcare Directive 04/28/2021 021 * Full Code (Latest Code Status on File) Date Activated Date Inactivated Comments 07/04/2020 6:41 PM 07/05/2020 5:52 PM Question Answer Comments Code Status Discussion: Per Existing Order * Full Code Date Activated Date Inactivated Comments 06/25/2020 9:43 PM 06/26/2020 4:56 PM Question Answer Comments Code Status Discussion: Discussed * Full Code Date Activated Date Inactivated Comments 05/22/2020 5:54 AM 05/23/2020 2:28 AM Question Answer Comments Code Status Discussion: Not Discussed * Full Code Date Activated Date Inactivated Comments 10/20/2016 10:30 AM 10/21/2016 2:29 AM Care Teams Law Clerk Relationship Specialty [place] [id number] [place] [address] PCP - General Family Practice 11/14/22 Chinyere Parnell NP Hematology Nurse Practitioner - Adult 05/14/20 Nina Chaney MD [phone] (work) Hematology Oncology 05/14/20
== END 2023-11-21 10:08 | disposition home or self-care (01) ==
LOC: NFLDREF 11-24 11:27
PROVIDERS: PCP Internal Medicine; Referring Provider Internal Medicine; Visit Provider Internal Medicine
DX: N39.0 Urinary tract infection, site not specified (principal); B96.20 Unspecified Escherichia coli [E. coli] as the cause of diseases classified elsewhere
CPT/HCPCS: 87086; 87186

== ENCOUNTER 2024-01-16 11:00 | Outpatient (RCR) | payer MEDICARE, SELFPAY ==
--- NOTE | 2023-12-26 11:31 | PT.OPE ---
PT [facility] PT [facility] Outpatient Eval Start: 12/26/23 10:34 Freq: Status: Active Protocol: Document 12/26/23 10:34 EILEEN (Rec: 12/26/23 11:11 EILEEN [id number]) E-signed By Andrei Wilhelm, PT, ATC Physical Therapy Outpatient Evaluation Insurance Information Insurance Name Medicare B Medical Diagnosis M75.102 Unspecified rotator cuff tear or rupture of left shoulder, not traumatic Treating Diagnosis L shoulder pain L shoulder stiffness Referring MD Dillon Subjective Subjective Awakened a week ago with L shoulder pain. Remained stiff and sore following day creating difficulty with ADL's -dressing, washing hair, tucking shirt in behind back. Was seen previously in PT between the dates of 09/18/23- 10/02/23 with good outcome. Not certain why this episode occurred as she is not caring for her as she had been previously. Pain Comments 11/30 intermittent high Date of Last Physician Visit 12/21/23 Current Work Status Retired Preferred Name Hyun Precautions Therapy Limitations/Systems Review Not Limited Objective Range of Motion FLEX: R 175, L 170 IR behind back: R T3, L T10 Horz ADDUC: R 55, L 45, pain producing. Strength Gross 5/5, ABD and IR pain producing Posture Stands with rounded shoulders and forward head. Increased thoracic kyphosis Assessment Assessment/Impression Hyun is a pleasant and well known left handed 88 year old referred to PT because of reoccurring L shoulder pain and stiffness. Because she had good results with previous therapy in August, I expect similar results this session. She admits that she discontinued the exercise performance once the pain had subsided last time. Knows she needs to restart these and maintain going forward. 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 Skilled PT for manual therapy and therapeutic exercise should be effective in lessening her discomfort and allowing her full return to ADL's. Primary Functional Limitations Reaching above shoulder level Reaching across chest Reaching behind back Plan of Care Rehabilitation Potential Good Physical Therapy Goals 1.Independent and correct performance with her HEP for AAROM and light strengthening of the RC complex. 2.Able to wash opposite shoulder and hair without degree of pain currently experienced, < 2/10. 3.To sleep without interruption from L shoulder pain. Coordination/Communication With Referral Source Treatment Plan/Direct Interventions Joint Mobilization,Manual Therapy,Therapeutic Exercises Frequency/Duration 6 -12 visits Patient Will Be Discharged From Therapy Independent w/HEP, Independently Progressing Evaluation Billing Untimed Code Treatment Minutes 30 PT Eval No Charge No Complexity Low Certification Information Initial Certification Date 12/26/23 Ending Certification Date 03/27/24 Provider Signature Required Yes Provider Signature Shows Agreement With POC & Medical Necessity Physician NPI Number Write NPI# Here Physician Comment/Change : Physician Signature & Date Requested Please Sign/Date Here
== END 2024-04-16 14:14 | disposition home or self-care (01) ==
PROVIDERS: PCP Internal Medicine; Visit Provider Orthopaedic Surgery Sports Medicine
DX: M75.102 Unspecified rotator cuff tear or rupture of left shoulder, not specified as traumatic (principal); M12.812 Other specific arthropathies, not elsewhere classified, left shoulder; Z51.89 Encounter for other specified aftercare
CPT/HCPCS: 97110; 97140; 97161

== ENCOUNTER 2024-03-01 19:35 | Emergency (ER) | payer MEDICARE, SELFPAY ==
[2024-03-01 19:38] VITALS: BP 162/75; PULSE 78; RESP 20; TEMP 36.3; O2SAT 97; BMI 29.4
--- NOTE | 2024-03-01 19:57 | ED.GENADULT ---
HPI - General Adult General Chief complaint: Laceration/Wound Stated complaint: cut on R arm Time Seen by Provider: 03/01/24 19:45 Source: patient Mode of arrival: ambulatory Limitations: no limitations History of Present Illness HPI narrative: 89-year-old female coming in today with a laceration on her forearm. Patient was reaching over her head and scraped her forearm on some molding. Tetanus shot was updated in 2020. She denies any other injury. Related Data Home Medications ?Medication ?Instructions ?Recorded ?Confirmed sacubitril 97 mg-valsartan 103 mg 1 tab PO BID 01/17/23 12/21/23 tablet (Entresto) loperamide 2 mg capsule (Imodium 2 mg PO Q6H PRN 08/24/23 01/17/24 A-D) torsemide 10 mg tablet 20 mg PO QDAY 08/24/23 01/17/24 cyanocobalamin (vitamin B-12) 1,000 mcg PO QDAY 01/17/24 01/17/24 1,000 mcg capsule Previous Rx's ?Medication ?Instructions ?Recorded pantoprazole 20 mg tablet,delayed 20 mg PO QDAY GERD #90 tabs 05/19/23 release diltiazem HCl 240 mg 240 mg PO DAILY #90 caps 09/20/23 capsule,extended release 24 hr alprazolam 0.5 mg tablet 0.5 mg PO BID PRN anxiety #30 tabs 01/17/24 potassium chloride 20 mEq 20 meq PO QDAY Hypokalemia #30 tabs 02/12/24 tablet,extended release(part/cryst) Allergies Allergy/AdvReac Type Severity Reaction Status Date / Time Cephalosporins Allergy Intermediate Diarrhea Verified 12/13/23 15:34 levofloxacin [From Levaquin] Allergy Numbness Verified 01/17/24 09:57 Quinolones Allergy Anaphylaxis Verified 01/17/24 09:57 escitalopram AdvReac Intermediate Diarrhea Verified 12/13/23 15:34 diphenhydramine AdvReac Edema Verified 01/17/24 09:57 [From Benadryl] metoprolol AdvReac Rash Verified 01/17/24 09:57 Review of Systems Status of ROS: Reports: 6 or more systems reviewed and unremarkable except as noted in History and below [facility] Medical History Onychomycosis ?B35.1 - Tinea unguium (ICD-10) Dysuria ?R30.0 - Dysuria (ICD-10) Neck pain ?M54.2 - Cervicalgia (ICD-10) Shingles ?B02.9 - Zoster without complications (ICD-10) History of methicillin resistant Staphylococcus aureus infection (2013) ?Z86.14 - Personal history of Methicillin resistant Staphylococcus aureus infection (ICD-10) History of malignant neoplasm of skin (2013) ?Z85.828 - Personal history of other malignant neoplasm of skin (ICD-10) History of colonic polyps (04/06/10) ?Z86.010 - Personal history of colonic polyps (ICD-10) Surgical History History of Mohs micrographic surgery for skin cancer ?Z85.828 - Personal history of other malignant neoplasm of skin (ICD-10) ?Z98.890 - Other specified postprocedural states (ICD-10) History of lumbar discectomy (2005) ?Z98.890 - Other specified postprocedural states (ICD-10) History of bone marrow biopsy (05/22/20) ?Z98.890 - Other specified postprocedural states (ICD-10) History of hysterectomy (1997) ?Z90.710 - Acquired absence of both cervix and uterus (ICD-10) History of cataract extraction ?Z98.49 - Cataract extraction status, unspecified eye (ICD-10) History of arthroscopy of right knee (03/20/08) ?Z98.890 - Other specified postprocedural states (ICD-10) Family History Mother Coronary artery disease High blood pressure Father Coronary artery disease Brother Coronary artery disease High blood pressure Sister Esophageal cancer High blood pressure Social History What is your current living situation?: I presently have a place to live Problems where you live: no known problems In the past 12 months, utilities in danger of being shut off: no Smoking Status: Former smoker What tobacco products do you use: cigarettes Smoking quit date/years: >15 years ago Do you use any of these nicotine containing products: None Second hand tobacco smoke exposure: No How often do you have a drink containing alcohol: 4 or more times a week How many standard drinks containing alcohol do you have on a typical day: 1 or 2 How often do you have six or more drinks on one occasion: Never AUDIT-C Alcohol total score: 4 Non-prescribed substance use: denies use How often does anyone, including family, friends and others, physically hurt you: How often does anyone, including family, friends and others, insult or talk down to you: How often does anyone, including family, friends and others, threaten you with harm: How often does anyone, including family, friends and others, scream or curse at you: Little interest or pleasure in doing things: not at all Feeling down, depressed, or hopeless: not at all service: No Exam Narrative: Exam Narrative: Well-nourished well-developed elderly patient in no acute distress. Alert and oriented. Answers questions appropriately. Mood and affect are appropriate. Thoughts are goal oriented and rational. No tangential or magical thinking noted. Patient speaks in full sentences without needing to catch her breath. Extremities: Patient has a the flap of avulsed skin on the dorsal surface of the forearm, size is slightly smaller than a quarter. Avulsed skin includes just the top layer. Const: Vital Signs, click to edit/add: Vital Signs - 24 hr 03/01/24 19:38 Temperature 97.4 F L Pulse Rate [Pulse Oximeter] 78 Respiratory Rate 20 Blood Pressure [Ri ght Upper Arm] 162/75 H Pulse Oximetry 97 Oxygen Delivery Me thod Room Air Course Course ED Course: Area was cleaned. Skin was laid back in place. Next recent was applied. Steri-strips were placed. Vital Signs Vital signs: Initial Vital Signs Temperature 97.4 F L 03/01/24 19:38 Temperature Source Temporal Artery Scan 03/01/24 19:38 Pulse Rate 78 03/01/24 19:38 Respiratory Rate 20 03/01/24 19:38 Blood Pressure 162/75 H 03/01/24 19:38 Blood Pressure Mean 104 03/01/24 19:38 Blood Pressure Position Sitting 03/01/24 19:38 Pulse Oximetry 97 03/01/24 19:38 Oxygen Delivery Method Room Air 03/01/24 19:38 Vital Signs Temperature 97.4 F L 03/01/24 19:38 Pulse Rate 78 03/01/24 19:38 Respiratory Rate 20 03/01/24 19:38 Blood Pressure 162/75 H 03/01/24 19:38 Pulse Oximetry 97 03/01/24 19:38 Oxygen Delivery Method Room Air 03/01/24 19:38 Temperature 97.4 F L 03/01/24 19:38 Pulse Rate 78 03/01/24 19:38 Respiratory Rate 20 03/01/24 19:38 Blood Pressure 162/75 H 03/01/24 19:38 Pulse Oximetry 97 03/01/24 19:38 Oxygen Delivery Method Room Air 03/01/24 19:38 Medical Decision Making MDM Narrative Medical decision making narrative: Skin avulsion treated per above. Discharge Plan Discharge Clinical Impression: Avulsion of skin Patient Disposition: Home, Self-Care Condition: Stable Additional Instructions: Keep wound clean and dry. Do not soak such as taking baths or swimming. Follow-up as needed with your primary care provider. Watch for signs and symptoms of infection including increasing redness of the area, purulent drainage, or fever. If this occurs follow-up right away with your doctor or return to the ER. Change Band-Aid once daily. Do not remove the white tape (steri-trip) as this will fall off on its own. Prescriptions: No Action Entresto 97-103 mg tablet 1 tab PO BID cyanocobalamin (vitamin B-12) 1,000 mcg capsule 1,000 mcg PO QDAY alprazolam 0.5 mg tablet 0.5 mg PO BID PRN (Reason: anxiety) Qty: 30 0RF loperamide [Imodium A-D] 2 mg capsule 2 mg PO Q6H PRN torsemide 10 mg tablet 20 mg PO QDAY pantoprazole 20 mg tablet,delayed release (DR/EC) 20 mg PO QDAY Qty: 90 3RF diltiazem HCl 240 mg capsule,extended release 24hr 240 mg PO DAILY Qty: 90 3RF potassium chloride 20 mEq tablet,ER particles/crystals 20 meq PO QDAY Qty: 30 0RF Follow Up/Referrals: Fred Vaca MD [Primary Care Provider] - Stand Alone [facility] Info Instructions
[2024-03-01 20:03] VITALS: BP 155/74; PULSE 81; RESP 20; TEMP 36.7; O2SAT 97
[2024-03-01 20:04] VITALS: BP 155/74; PULSE 81; RESP 20; TEMP 36.7
== END 2024-03-01 20:05 | disposition home or self-care (01) ==
LOC: ED 20:00
PROVIDERS: Emergency Provider Family Medicine; PCP Internal Medicine
DX: S51.811A Laceration without foreign body of right forearm, initial encounter (principal); W26.9XXA Contact with unspecified sharp object(s), initial encounter
CPT/HCPCS: 99282; 99283

== ENCOUNTER 2024-04-21 22:07 | Emergency (ER) | payer MEDICARE, SELFPAY ==
[2024-04-21 22:12] VITALS: BP 138/81; PULSE 77; RESP 18; TEMP 36.1; O2SAT 98; BMI 29.2
--- NOTE | 2024-04-21 23:18 | ED.FALL ---
HPI - Fall General Time Seen by Provider: 23:18 Date Seen: 04/21/24 Chief Complaint: Fall/Minor Trauma Stated Complaint: fell tonight/hurt shoulder, knee Time Seen by Provider: 04/21/24 22:46 Source: patient and old records reviewed Mode of arrival: ambulatory Limitations: no limitations History of Present Illness HPI Narrative: 89-year-old female who presents today after fall. Patient tripped and fell, complains of left shoulder, left knee pain. She has been ambulatory since the fall. Did hit her head, not on blood thinners, no loss conscious. Denies neck pain, back pain, chest pain. No pelvic or hip pain. Patient notes that shoulder pain is feeling better. Related Data Home Medications ?Medication ?Instructions ?Recorded ?Confirmed sacubitril 97 mg-valsartan 103 mg 1 tab PO BID 01/17/23 03/20/24 tablet (Entresto) loperamide 2 mg capsule (Imodium 2 mg PO Q6H PRN 08/24/23 03/20/24 A-D) torsemide 10 mg tablet 20 mg PO QDAY 08/24/23 03/20/24 cyanocobalamin (vitamin B-12) 1,000 mcg PO QDAY 01/17/24 03/20/24 1,000 mcg capsule Previous Rx's ?Medication ?Instructions ?Recorded pantoprazole 20 mg tablet,delayed 20 mg PO QDAY GERD #90 tabs 05/19/23 release diltiazem HCl 240 mg 240 mg PO DAILY #90 caps 09/20/23 capsule,extended release 24 hr alprazolam 0.5 mg tablet 0.5 mg PO BID PRN anxiety #30 tabs 01/17/24 potassium chloride 20 mEq 20 meq PO QDAY Hypokalemia #90 tabs 04/08/24 tablet,extended release(part/cryst) Allergies Allergy/AdvReac Type Severity Reaction Status Date / Time Cephalosporins Allergy Intermediate Diarrhea Verified 03/20/24 14:01 levofloxacin [From Levaquin] Allergy Numbness Verified 03/20/24 14:01 Quinolones Allergy Anaphylaxis Verified 03/20/24 14:01 escitalopram AdvReac Intermediate Diarrhea Verified 03/20/24 14:01 diphenhydramine AdvReac Edema Verified 03/20/24 14:01 [From Benadryl] metoprolol AdvReac Rash Verified 03/20/24 14:01 [facility] Medical History Onychomycosis ?B35.1 - Tinea unguium (ICD-10) Dysuria ?R30.0 - Dysuria (ICD-10) Neck pain ?M54.2 - Cervicalgia (ICD-10) Shingles ?B02.9 - Zoster without complications (ICD-10) History of methicillin resistant Staphylococcus aureus infection (2013) ?Z86.14 - Personal history of Methicillin resistant Staphylococcus aureus infection (ICD-10) History of malignant neoplasm of skin (2013) ?Z85.828 - Personal history of other malignant neoplasm of skin (ICD-10) History of colonic polyps (04/06/10) ?Z86.010 - Personal history of colonic polyps (ICD-10) Surgical History History of Mohs micrographic surgery for skin cancer ?Z85.828 - Personal history of other malignant neoplasm of skin (ICD-10) ?Z98.890 - Other specified postprocedural states (ICD-10) History of lumbar discectomy (2005) ?Z98.890 - Other specified postprocedural states (ICD-10) History of bone marrow biopsy (05/22/20) ?Z98.890 - Other specified postprocedural states (ICD-10) History of hysterectomy (1997) ?Z90.710 - Acquired absence of both cervix and uterus (ICD-10) History of cataract extraction ?Z98.49 - Cataract extraction status, unspecified eye (ICD-10) History of arthroscopy of right knee (03/20/08) ?Z98.890 - Other specified postprocedural states (ICD-10) Family History Mother Coronary artery disease High blood pressure Father Coronary artery disease Brother Coronary artery disease High blood pressure Sister Esophageal cancer High blood pressure Social History What is your current living situation?: I presently have a place to live Problems where you live: no known problems In the past 12 months, utilities in danger of being shut off: no Smoking Status: Former smoker What tobacco products do you use: cigarettes Smoking quit date/years: >15 years ago Do you use any of these nicotine containing products: None Second hand tobacco smoke exposure: No How often do you have a drink containing alcohol: 4 or more times a week How many standard drinks containing alcohol do you have on a typical day: 1 or 2 How often do you have six or more drinks on one occasion: Never AUDIT-C Alcohol total score: 4 Non-prescribed substance use: denies use How often does anyone, including family, friends and others, physically hurt you: How often does anyone, including family, friends and others, insult or talk down to you: How often does anyone, including family, friends and others, threaten you with harm: How often does anyone, including family, friends and others, scream or curse at you: Little interest or pleasure in doing things: not at all Feeling down, depressed, or hopeless: not at all service: No Exam Narrative: Exam Narrative: General: Well-developed and well-nourished, no acute distress Head: Bruising of the left forehead, left eyebrow, and left lateral variable area. 2 cm full-thickness laceration of the left lateral eyebrow with skin tear above this Eyes: Pupils are equal reactive, extraocular motions intact, conjunctiva clear ENT: External nose and ears are normal, posterior pharynx without erythema or exudate Neck: No midline cervical tenderness, full spontaneous range of motion the neck, trachea midline, no adenopathy Heart: Regular rate and rhythm no murmurs or thrills Lungs: Clear to auscultation bilaterally without wheezes or crackles Abdomen: Soft, nontender, nondistended with active bowel sounds Musculoskeletal: Mild left posterior shoulder tenderness, left knee bruising, quadriceps mechanism intact and no joint effusion Neurologic: Awake, alert, and oriented x3, no gross focal neurologic deficits, cranial nerves intact as tested Psych: Mood and affect are appropriate Skin: No rashes Const: Vital Signs, click to edit/add: Vital Signs - 24 hr 04/21/24 22:12 Temperature 97.0 F L Pulse Rate [Left P ulse Oximeter] 77 Respiratory Rate 18 Blood Pressure [Ri ght Upper Arm] 138/81 Pulse Oximetry 98 Oxygen Delivery Me thod Room Air Course Course ED Course: Patient seen examined, reports shoulder pain and leg pain after fall tonight. On exam she has some tenderness of posterior shoulder but full range of motion the shoulder, says this is feeling better than initially. On the left knee she has some bruising, quadriceps mechanism intact, no joint effusion, suspect soft tissue injury. She does have a laceration of the left eyebrow and this is repaired. Procedure- laceration repair, left eyebrow, full-thickness 2 cm. Risks and benefits discussed with the patient, verbal consent was obtained. Lidocaine 1% was injected subcutaneously around the wound. Cleansed with wound cleanser. Explored, no foreign bodies found. Laceration was closed with three 5-0 Ethilon simple interrupted sutures. Patient tolerated this well. CT scan of the head ordered due to age and head injury. Vital Signs Vital signs: Initial Vital Signs Temperature 97.0 F L 04/21/24 22:12 Temperature Source Temporal Artery Scan 04/21/24 22:12 Pulse Rate 77 04/21/24 22:12 Pulse Rhythm Regular 04/21/24 22:12 Respiratory Rate 18 04/21/24 22:12 Blood Pressure 138/81 04/21/24 22:12 Blood Pressure Mean 100 04/21/24 22:12 Blood Pressure Position Sitting 04/21/24 22:12 Pulse Oximetry 98 04/21/24 22:12 Oxygen Delivery Method Room Air 04/21/24 22:12 Vital Signs Temperature 97.0 F L 04/21/24 22:12 Pulse Rate 77 04/21/24 22:12 Respiratory Rate 18 04/21/24 22:12 Blood Pressure 138/81 04/21/24 22:12 Pulse Oximetry 98 04/21/24 22:12 Oxygen Delivery Method Room Air 04/21/24 22:12 Temperature 97.0 F L 04/21/24 22:12 Pulse Rate 77 04/21/24 22:12 Respiratory Rate 18 04/21/24 22:12 Blood Pressure 138/81 04/21/24 22:12 Pulse Oximetry 98 04/21/24 22:12 Oxygen Delivery Method Room Air 04/21/24 22:12 Medications Administered Medications: Discontinued Medications Generic Name Dose Route Start Last Admin Trade Name Freq PRN Reason Stop Dose Admin Acetaminophen 1,000 mg 04/21/24 23:37 04/21/24 23:44 Acetaminophen 500 Mg Tablet PO 04/21/24 23:38 1,000 mg ONCE ONE Administration Discharge Plan Discharge Clinical Impression: Eyebrow laceration, Contusion of knee, left, Left shoulder strain Patient Disposition: Home, Self-Care Condition: Stable Instructions: Contusion in Adults (ED), Facial Laceration (ED) Additional Instructions: Tylenol and ibuprofen for pain Sutures to be removed in 1 week with your primary care provider Activity Level: Activity as Tolerated Discharge Diet: Regular Prescriptions: No Action Entresto 97-103 mg tablet 1 tab PO BID cyanocobalamin (vitamin B-12) 1,000 mcg capsule 1,000 mcg PO QDAY alprazolam 0.5 mg tablet 0.5 mg PO BID PRN (Reason: anxiety) Qty: 30 0RF loperamide [Imodium A-D] 2 mg capsule 2 mg PO Q6H PRN torsemide 10 mg tablet 20 mg PO QDAY pantoprazole 20 mg tablet,delayed release (DR/EC) 20 mg PO QDAY Qty: 90 3RF diltiazem HCl 240 mg capsule,extended release 24hr 240 mg PO DAILY Qty: 90 3RF potassium chloride 20 mEq tablet,ER particles/crystals 20 meq PO QDAY Qty: 90 1RF Follow Up/Referrals: Fred Vaca MD [Primary Care Provider] - Stand Alone Forms: [employer] Info Instructions
--- OUTSIDE RECORDS SUMMARY | 2024-04-21 23:30 | XMS_ITS | Continuity of Care Document ---
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 Difficile Toxin Gene, GREGORIO Offic/outpt E&m Estab Mod-ne 2 16 Offic/outpt E&m Estab Low-mod 6 Offic/outpt E&m Estab Mod-ne 2 15 Breath Test Lactose Breath Test Fructose Sigmoidoscopy Flex; W/bx 1/mx 5 Level Iv-surg Path Gross/micro 15 Routine Serum Collection Offic/outpt E&m [facility] Routine Serum Collection C-reactive Prot Advance Directives Directive Yes / No Effective Date File Name No Information Encounters Encounter Description Practice Location Reason(s) For Visit Diagnoses Date Provider Providers Copied on Encounter [facility], [address] [address], [place], [id number], [place] tel:[phone] Mo[facility] No Information 1 Ankush Painter. [address] [place] [address], [facility] [address], [place], [id number] , [place]. tel:[phone] Offic/outpt E&m [facility], [address] [address], [place], [id number], [place] tel:[phone] [facility] GI Symptoms or Concerns (chief complaint) Lymphocytic colitisDietary counseling and surveillance 0 Sarwat Sun. [address] [place] [address], [facility] [address], [place], [id number] , [place]. [phone] Referring Provider: Referral Self, USE FOR SELF REFERRALS. [facility], [address] [address], [place], [id number], [place] tel:[phone] [facility] No Information 0 Ankush Painter. [address] [place] [address], [id number] , [place]. tel: [phone] Offic/outpt E&m Estab Low-mod [facility], [address] [address], [place], [id number], [place] tel:[phone] [facility] GI Symptoms or Concerns (chief complaint) Gastroesophageal reflux disease, esophagitis presence not specifiedLymphoc ytic colitisDietary counseling and surveillanceElev ated blood-pressure reading, w/o diagnosis of htn 6 Hannah Alcantar. [address] [place] [address], [id number] , [place]. tel: [phone] Referring Provider: Referral Self, USE FOR SELF REFERRALS. Offic/outpt E&m Estab Mod-hi 2 [facility], [address] [address], [facility] [place], [id number], [place] tel:[phone] [facility] GI Symptoms or Concerns (chief complaint) Lymphocytic colitisDietary counseling and surveillanceElev ated blood-pressure reading, w/o diagnosis of htn 6 Geoff Monsalve. [facility] [address], [place], [place], [id number] , [place]. tel: [phone] Referring Provider: Jonnathan Deleon, [address] [place] [address], [address]. tel:[phone] [facility], [address] [address], [place], [id number], [place] tel:[phone] [facility] Other specified noninfective gastroenteritis and colitis 6 Ankita Up. [address] [facility], [facility] [address], [place], [place], [id number] , [place]. tel: [phone] Referring Provider: Referral Self, USE FOR SELF REFERRALS. Offic/outpt E&m Estab Mod-hi 2 [facility], [address] [address], [place], [id number], [place] tel:[phone] [facility] GI Symptoms or Concerns (chief complaint) Microscopic colitisDietary counseling and surveillance 6 Ankita Up. [address] [facility], [address] [address], [place], [place], [id number] , [place]. tel:[phone] Referring Provider: Jonnathan Deleon, [address] [place] [address], [address]. tel:[phone] Offic/outpt E&m Estab Low-mod [facility], [address] [address], [place], [id number], [place] tel:[phone] [facility] GI Symptoms or Concerns (chief complaint) Microscopic colitisDiarrheaD ietary counseling and surveillance 6 Hannah Alcantar. [address] [place] [address], [id number] , [place]. tel:[phone] Referring Provider: Referral Self, USE FOR SELF REFERRALS. Offic/outpt E&m Estab Mod-hi 2 [facility], [address] [address], [place], [id number], [place] tel:[phone] [facility] GI Symptoms or Concerns (chief complaint) Microscopic colitis 5 Chyna Nolan. [address] [facility], [place] [address] [address], [place], [place], [id number] , [place]. tel:[phone] Referring Provider: Referral Self, USE FOR SELF REFERRALS. [facility], [address] [address], [place], [id number], [place] tel:[phone] [facility] No Information 5 Hannah Alcantar. [address] [place] [address] [place], [place], [id number] , [place]. tel:[phone] Referring Provider: Referral Self, USE FOR SELF REFERRALS. [facility], [address] [address], [place], [id number], [place] tel:[phone] [facility] No Information 6 5 Hannah Alcantar. [address] [facility], [place] [address], [facility] [place], [id number] , [place]. tel:[phone] Referring Provider: Referral Self, USE FOR SELF REFERRALS. [facility], [address] [address], [place], [id number], [place] tel:[phone] [facility], [facility] Diarrhea, unspecifiedOther specified noninfective gastroenteritis and colitis 0- 5 Hannah Alcantar. [address] [facility] [place], [place] [address], [facility], [place], [id number] , [place]. tel: [phone] Referring Provider: Referral Self, USE FOR SELF REFERRALS. [facility], [address] [address], [place], [id number], [place] tel:[phone] [facility] No Information 0 5 Hannah Alcantar. [address] [facility], [address], [facility], [id number] , [place]. tel: [phone] Referring Provider: Referral Self, USE FOR SELF REFERRALS. [facility], [address] [address], [place], [id number], [place] tel:[phone] [facility], [facility] Diarrhea 5 Hannah Alcantar. [address] [facility] [place], [place] [address], [facility], [place], [id number] , [place]. tel: [phone] Referring Provider: Referral Self, USE FOR SELF REFERRALS. Offic/outpt E&m New Mod-hi [facility], [address] [address], [place], [id number], [place] tel:[phone] [facility] GI Symptoms or Concerns (chief complaint) DiarrheaElevated blood-pressure reading, w/o diagnosis of htn 2 5 Hannah Alcantar. [address] [facility] [place], [address], [place], [id number] , [place]. tel: [phone] Referring Provider: Referral Self, USE FOR SELF REFERRALS. Family History Family Member Type Diagnosis Age [...] Unspecified Payers Payer name Insurance type Covered libertarian ID Authoriza tisabi(s) Lamont Dan 16 [id number] Social History Type Description Quantity Date Captured [...] Date Complaint History Of Prese nt Illness GI Symptoms or Concerns I had th e pleasure of meeting Ms. Hyun Norris as a new patient, self-referred for evaluation of lymphocytic colitis.Hyun was last seen at [facility] in 2015 for evaluation of chronic lymphocytic [...] enteritis. GI Symptoms or Concerns The gaby hernandez is a very pleasant woman we have [...] of her diarrhea. Recently, she returned from [place], and the day after she arrived home from [place], she developed acute diarrhea. Patient reports that [...] was GI Symptoms or Concerns The gaby hernandez is a very pleasant 80-year-old woman who [...] in her stool.Workup in the past at [place] for her intermittent diarrhea included a colonoscopy with biopsies in May, which was negative and EGD in May with biopsies that were negative and those were of May of 2014. She also had blood work and stool studies there and an upper GI series all were negative.Workup here in [place] over the past six weeks has included [...]
--- OUTSIDE RECORDS SUMMARY | 2024-04-21 23:30 | XMS_ITS | Encounter Summary ---
Author Organization [facility] Address [address] [place] [address] Care Team Providers Care Casino Host Name Role Phone Unavailable Primary Care Provider Unavailabl e Reason for Referral * Outpatient (Routine) - Closed Specialty Diagnoses / Procedures Referred By Contac t Referred To Contact Diagnoses Unspecified Diastolic (Congestive) Heart Failure (HCC) Procedures DX Chest AP or PA and Lateral 2 Views Timur Torres M.D. [address] [place] [address] [facility] Referral ID Status Reason Start Date Expiration Date Visits Re quested Visits Authorized [id number] Closed 12/28/2021 12/28/2022 1 1 Reason for Visit * Outpatient (Routine) - Closed Specialty Diagnoses / Procedures Referred By Contac t Referred To Contact Diagnoses Unspecified Diastolic (Congestive) Heart Failure (HCC) Procedures DX Chest AP or PA and Lateral 2 [place] [address] [facility] Referral ID Status Reason Start Date Expiration Date Visits Re quested Visits Authorized [id number] Closed 12/28/2021 12/28/2022 1 1 Encounter Details Date Type Department Care Team (Latest Contact Info) Description 02/01/2024 9:17 AM CDT - 02/01/2024 11:59 PM CDT Hospital Encounter Department of Radiology, [facility], in [place], [place] [address] [place] [address] Timur Torres M.D. [address] [place] [address] Unspecified Diastolic (Congestive) Heart Failure (HCC) Discharge Disposition: Home or Self Care Social History Tobacco Use Types Packs/Day Years Used Date Smoking Tobacco: Former Cigarettes 0 01/20/1955 - 09/07/1969 Smokeless Tobacco: Never Alcohol Use Standard Drinks/Week Comments Yes 5 (1 standard drink = 0.6 oz pur e alcohol) [facility] Utilities Answer Date Recorded In the past 12 months has [employer], gas, oil, or water company threatened to shut off services in your home? No 01/29/2024 Social Connection and Isolat ion Panel [NHANES] Answer Date Recorded In a typical week, how many times do you talk on the phone with family, friends, or neighbors? More than three times a week 11/27/2020 How often do you get togethe r with friends or relatives? Twice a week 11/27/2020 How often do you attend chur ch or mormonism services? 1 to 4 times per year 11/27/2020 Do you belong to any clubs o r organizations such as caodaism groups, unions, fraternal or athletic groups, or school groups? No 11/27/2020 How often do you attend meet ings of the clubs or organizations you belong to? Never 11/27/2020 Are you , , di vorced, , never , or living with a partner? 11/27/2020 AUDIT-C Answer Date Recorded Q1: How often do you have a drink containing alc ohol? 2-3 times a week 11/27/2020 Q2: How many drinks containi ng alcohol do you have on a typical day when you are drinking? 1 or 2 11/27/2020 Q3: How often do you have si x or more drinks on one occasion? Never 11/27/2020 Overall Financial Resource Strain (CARDIA) Answe r Date Recorded How hard is it for you to pa y for the very basics like food, housing, medical care, and heating? Not hard at all 11/27/2020 [facility] - Occupational Stress Questionnaire Answer Date Recorded Do you feel stress - tense, restless, nervous, or anxious, or unable to sleep at night because your mind is troubled all the time - these days? Only a little 11/27/2020 Exercise Vital Sign Answer Date Recorde d On average, how many days pe r week do you engage in moderate to strenuous exercise (like a brisk walk)? 0 days Minutes of Exercise per Session Not on file 01/29/2024 Hunger Vital Sign Answer Date Recorded Within the past 12 months, y ou worried that your food would run out before you got the money to buy more. Never true 01/29/20 Within the past 12 months, t he food you bought just didn't last and you didn't have money to get more. Never true 01/29/2024 PRAPARE - Transportation Answer Date Re corded In the past 12 months, has l ack of transportation kept you from medical appointments or from getting medications? No 02/2024 In the past 12 months, has l ack of transportation kept you from meetings, work, or from getting things needed for daily living? No 01/29/2024 Nutrition Answer Date Recorded On average, how many serving s of fruits and vegetables do you eat per day (serving size is equal to 1 cup or approximately the size of a tennis ball)? 0-2 01/29/2024 Dental Answer Date Recorded Dental: Regular Dentist Yes 01/29/20 Employment Answer Date Recorded Employment status Retired 01/29/2024 Housing Stability Answer Date Recorded What is your living situation today? I have a [facility] place to live 01/29/2024 Education Answer Date Recorded What is the highest level of school you have completed or the highest degree you have received? 12th grade 10/31/2020 Sex and Gender Information Value Date Recorded Sex Assigned at Female 01/29/2024 12:46 PM CDT Gender Identity Female 10/31/2020 7:33 PM CDT Sexual Orientation Straight 10/31/2020 7: 33 PM CDT documented as of this encounter Medications at Time of Discharge Medication Sig Dispensed Refills Start Date End Date cyanocobalamin (Vitamin B-12) 1,000 mcg tablet Take 1 tablet by mouth daily. 04/28/2022 dilTIAZem CD (CARDIZEM CD/CARTIA XT) 240 mg 24 hr capsule Take 1 capsule by mouth daily. 10/28/2020 fluticasone propionate (FLONASE ALLERGY RELIEF NASAL) Administer 1 spray into nostril(s) as needed. loperamide (IMODIUM A-D) 2 mg tablet Take 1 tablet by mouth as needed. 06/04/2020 pantoprazole (Protonix) 20 mg EC tablet Take 1 tablet by mouth daily. 08/31/2020 potassium chloride (Klor-Con M) 20 mEq ER tablet Take 20 mEq by mouth daily. sacubitriL-valsartan (Entresto) 97-103 mg per tablet Take 1 tablet by mouth 2 (two) times a day. 180 tablet 3 02/01/2024 torsemide (Demadex) 20 mg tablet Take 1 tablet (20 mg total) by mouth daily. 90 tablet 3 02/01/2024 documented as of this encounter Plan of Treatment Not on file documented as of this encounter Procedures Procedure Name Priority Date/Time Associated Diagnosis Comments DX CHEST AP OR PA AND LATERAL 2 VIEWS RAD - Routine (most inpatients and all outpatients) 02/01/2024 9:26 AM CDT Unspecified Diastolic (Congestive) Heart Failure (HCC) documented in this encounter Results * DX Chest AP or PA and Lateral 2 Views (02/01/2024 9:26 AM CDT) Anatomical Region Laterality Modality Chest, Thoracic RST LOS, Tho racic ARZ LOS, Thoracic FLA LOS N/A Digital Radiography Impressions 02/01/2024 10:23 AM CDT Heart size and pulmonary vascularity are within normal limits. Aortic calcifications. Degenerative skeletal changes. No change since 12/28/2021. Narrative 02/01/2024 10:23 AM CDT EXAM: ??DX CHEST AP OR PA AND LATERAL 2 VIEWS Procedure Note Missy Tatum M.D. - 02/01/2024 EXAM: DX CHEST AP OR PA AND LATERAL 2 VIEWS IMPRESSION: Heart size and pulmonary vascularity are within normal limits. Aorticcalcifications. Degenerative skeletal changes. No change since 12/28/2021. Timur [facility] PROCEDURES documented in this encounter Visit Diagnoses Diagnosis Unspecified Diastolic (Congestive) Heart Failure (HCC) documented in this encounter
--- OUTSIDE RECORDS SUMMARY | 2024-04-21 23:30 | XMS_ITS | Encounter Summary ---
Author Organization [facility] Address [address] [place] [address] Care Team Providers Care Semaphore Operator Name Role Phone Unavailable Primary Care Provider Unavailabl e Encounter Details Date Type Department Care Team (Latest Contact Info) Description 02/01/2024 8:54 AM CDT - 02/01/2024 9:16 AM CDT Hospital Encounter Department of Laboratory Medicine and Pathology, [place], [place] [address] [place] [phone] Timur Torres M.D. [address] [place] [phone] Unspecified Diastolic (Congestive) Heart Failure (HCC) Discharge Disposition: Home or Self Care Social History Tobacco Use Types Packs/Day Years Used Date Smoking Tobacco: Former Cigarettes 0 01/20/1955 - 09/07/1969 Smokeless Tobacco: Never Alcohol Use Standard Drinks/Week Comments Yes 5 (1 standard drink = 0.6 oz pur e alcohol) [facility] Utilities Answer Date Recorded In the past 12 months has [employer], gas, oil, or water company threatened to [...] often do you attend chur ch or mosque services? 1 to 4 times per year 11/27/2020 Do you belong to any clubs o r organizations such as gnosticism groups, unions, fraternal or athletic groups, or [...] and heating? Not hard at all 11/27/2020 [facility] - Occupational Stress [...] money to buy more. Never true 01/29/20 24 Within the past 12 months, t he [...] Date Recorded Dental: Regular Dentist Yes 01/29/20 24 Employment Answer Date Recorded Employment status Retired 01/29/2024 Housing Stability Answer Date Recorded What is your living situation today? I have a [facility] place to live 01/29/2024 Education Answer [...] Take 1 tablet by mouth daily. 08/31/2020 documented as of this encounter Plan of Treatment Not on file documented as of this encounter Procedures Procedure Name Priority Date/Time Associated Diagnosis Comments LIPID PANEL, S Routine 02/01/2024 9:09 AM CDT Unspecified Diastolic (Congestive) Heart Failure (HCC) NT-PRO B-TYPE NATRIURETIC PEPTIDE (BNP), S Routine 02/01/2024 9:09 AM CDT Unspecified Diastolic (Congestive) Heart Failure (HCC) CBC WITHOUT DIFFERENTIAL, B Routine 02/01/2024 9:09 AM CDT Unspecified Diastolic (Congestive) Heart Failure (HCC) COMPREHENSIVE METABOLIC PANEL, S/P Routine 02/01/2024 9:09 AM CDT Unspecified Diastolic (Congestive) Heart Failure (HCC) documented in this encounter Results * (ABNORMAL) Lipid Panel (02/01/2024 9:09 AM CDT) Triglycerides 100 mg/dL 02/01/2024 10:39 AM CDT DTL Comment: ----REFERENCE VALUE---- Normal: <150 mg/dL Borderline High: 150-199 mg/dL High: 200-499 mg/dL Very High: > or =500 mg/dL Cholesterol, Total 238(H) mg/dL 2023 10:39 AM CDT DTL Comment: ----REFERENCE VALUE---- Desirable: < 200 mg/dL Borderline High: 200 - 239 mg/dL High: > or = 240 mg/dL Cholesterol, LDL, Calculated 126 mg/dL 02/01/2024 10:39 AM CDT DTL Comment: ----REFERENCE VALUE---- Desirable: <100 mg/dL Above Desirable: 100-129 mg/dL Borderline High: 130-159 mg/dL High: 160-189 mg/dL Very High: >=190 mg/dL ----ADDITIONAL INFORMATION---- LDL cholesterol calculated using the Hernandez/NIH equation. Cholesterol, HDL, S 95 >=50 mg/dL 02/01/2024 10:39 AM CDT DTL Cholesterol, Non-HDL, Calculated 143 mg/dL 02/01/2024 10:39 AM CDT DTL Comment: ----REFERENCE VALUE---- Desirable: <130 mg/dL Above Desirable: 130-159 mg/dL Borderline High: 160-189 mg/dL High: 190-219 mg/dL Very High: > or =220 mg/dL Fasting (8 HR or more) No 02/01/2024 9:09 AM CDT DTL Blood (Blood, Venous) 02/01/2024 9:09 AM CDT 02/01/2024 9:50 AM CDT Timur Torres M.D. LAB BLOOD ADD-ON Performing Organization Address City/[facility] Co de Phone Number [facility] [address] [place], [place] [id number] [place] [address] * NT-Pro B-Type Natriuretic Peptide (BNP) (02/01/2024 9:09 AM CDT) Pathologist [facility] NT-Pro BNP 215 <=540 pg/mL 02/01/2024 10:39 AM CDT DTL Comment: NT-proBNP values less than 300 pg/mL have a 99% negative predictive value for excluding acute congestive heart failure. A cutoff of 1200 pg/mL for patients with an eGFR<60 yields a diagnostic sensitivity and specificity of 89% and 72% for acute congestive heart failure. A diagnostic NT-proBNP cutoff of 1800 pg/mL has been suggested in adults over 75 years of age in the absence of renal failure. Blood (Blood, Venous) 02/01/2024 9:09 AM CDT 02/01/2024 9:50 AM CDT Timur Torres M.D. LAB BLOOD ADD-ON Performing Organization Address [facility] Co de Phone Number [facility] [address] [place], [place] [id number] [place] [phone] * (ABNORMAL) Comprehensive Metabolic Panel (02/01/2024 9:09 AM CDT) [facility] Potassium, S 4.1 3.6 - 5.2 mmol/L 02/01/2024 10:39 AM CDT DTL Sodium, S 137 135 - 145 mmol/L 02/01/2024 10:39 AM CDT DTL Chloride, S 99 98 - 107 mmol/L 02/01/2024 10:39 AM CDT DTL Bicarbonate, S 26 22 - 29 mmol/L 02/01/2024 10:39 AM CDT DTL Anion Gap 12 7 - 15 02/01/2024 10:39 AM CDT DTL BUN (Blood Urea Nitrogen), S 17 6 - 21 mg/dL 02/01/2024 10:39 AM CDT DTL Creatinine 1.29(H) 0.59 - 1.04 mg/dL 02/01/2024 10:39 AM CDT DTL Estimated GFR (eGFR) 40(L) >=60 mL/min/BS A 02/01/2024 10:39 AM CDT DTL Comment: Estimated GFR calculated using the 2020 CKD_EPI creatinine equation. Calcium, Total, S 9.6 8.8 - 10.2 mg/dL 02/01/2024 10:39 AM CDT DTL Glucose, S 123 70 - 140 mg/dL 02/01/2024 10:39 AM CDT DTL Protein, Total, S 7.0 6.3 - 7.9 g/dL 02/01/2024 10:39 AM CDT DTL Albumin, S 4.5 3.5 - 5.0 g/dL 02/01/2024 10:39 AM CDT DTL Aspartate Aminotransferase (AST), S 16 8 - 43 U/L 02/01/2024 10:39 AM CDT DTL Alkaline Phosphatase, S 110(H) 35 - 104 U/L 02/01/2024 10:39 AM CDT DTL Alanine Aminotransferase (ALT), S 16 7 - 45 U/L 02/01/2024 10:39 AM CDT DTL Bilirubin, Total, S 1.0 0.0 - 1.2 mg/dL 02/01/2024 10:39 AM CDT DTL Blood (Blood, Venous) 02/01/2024 9:09 AM CDT 02/01/2024 9:50 AM CDT Timur Torres M.D. LAB BLOOD ADD-ON [facility] [address] [place] [address], [facility] [address] [place] [address] * (ABNORMAL) CBC without Differential (02/01/2024 9:09 AM CDT) Hemoglobin 13.7 11.6 - 15.0 g/dL 02/01/2024 10:05 AM CDT DTL Hematocrit 42.0 35.5 - 44.9 % 02/01/2024 10:05 AM CDT DTL Erythrocytes 4.26 3.92 - 5.13 x10(12)/L 02/01/2024 10:05 AM CDT DTL MCV 98.6(H) 78.2 - 97.9 fL 02/01/2024 10:05 AM CDT DTL RBC Distrib Width 13.3 12.2 - 16.1 % 02/01/2024 10:05 AM CDT DTL Platelet Count 292 157 - 371 x10(9)/L 02/01/2024 10:05 AM CDT DTL Leukocytes 10.2(H) 3.4 - 9.6 x10(9)/L 02/01/2024 10:05 AM CDT DTL Blood (Blood, Venous) 02/01/2024 9:09 AM CDT 02/01/2024 9:37 AM CDT Timur Torres M.D. LAB BLOOD ADD-ON [facility] [place] [address] [place] [address], [facility] [address] [place] [address] documented in this encounter Visit Diagnoses Diagnosis Unspecified Diastolic (Congestive) Heart Failure (HCC) documented in this encounter
--- OUTSIDE RECORDS SUMMARY | 2024-04-21 23:30 | XMS_ITS | Encounter Summary ---
Author Organization [facility] Address [address] [place] [address] Care Team Providers Care Yardage Estimator Name Role Phone Unavailable Primary Care Provider Unavailabl e Reason for Visit * Reason Onset Date Comments Pre-visit Intake 01/22/2024 Encounter Details Date Type Department Care Team (Latest Contact Info) Description 01/22/2024 11:30 AM CDT Clinical Communication Virtual Review in [address] [address] Pre-visit Intake Social History Tobacco Use Types Packs/Day Years Used Date Smoking Tobacco: Former Cigarettes 0 01/20/1955 - 09/07/1969 Smokeless Tobacco: Never Alcohol Use Standard Drinks/Week Comments Yes 5 (1 standard drink = 0.6 oz pur e alcohol) Social Connection and Isolat ion Panel [NHANES] Answer Date Recorded In a typical week, how many times do you talk on the phone with family, friends, or neighbors? More than three times a week 11/27/2020 How often do you get togethe r with friends or relatives? Twice a week 11/27/2020 How often do you attend chur ch or yarsanism services? 1 to 4 times per year 11/27/2020 Do you belong to any clubs o r organizations such as hoahaoism groups, unions, fraternal or athletic groups, or [...] and heating? Not hard at all 11/27/2020 [facility] - Occupational Stress Questionnaire Answer Date [...] to strenuous exercise (like a brisk walk)? 4 days 11/27/2020 On average, how many minutes do you engage in exercise at this level? 20 min 11/27/2020 Hunger Vital Sign Answer Date Recorded Worried About Running Out of Food in the Last Ye ar Not on file 11/27/2020 Within the past 12 months, t he food you bought just didn't last and you didn't have money to get more. Never true 11/27/2020 PRAPARE - Transportation Answer Date Re corded In the past 12 months, has l ack of transportation kept you from medical appointments or from getting medications? No 01/2021 In the past 12 months, has l ack of transportation kept you from meetings, work, or from getting things needed for daily living? No 11/27/2020 Housing Stability Vital Sign Answer Lázaro e Recorded In the last 12 months, was t here a time when you were not able to pay the mortgage or rent on time? No 11/27/2020 In the last 12 months, how many places have you lived? 1 11/27/2020 In the last 12 months, was t here a time when you did not have a steady place to sleep or slept in a assisted (including now)? No 11/27/2020 Nutrition Answer Date Recorded Nutrition: EVOO Fat Source No 11/27 On average, how many serving s of fruits and vegetables do you eat per day (serving size is equal to 1 cup or approximately the size of a tennis ball)? 2-3 11/27/2020 Dental Answer Date Recorded Dental: Regular Dentist Unknown 12/10/19 Employment Answer Date Recorded Employment status Retired 11/27/2020 Education Answer Date Recorded What is the highest level of school you have completed or the highest degree you have received? 12th grade 10/31/2020 Sex and Gender Information Value Date Recorded Sex Assigned at Female 01/29/2024 12:46 PM CDT Gender Identity Female 10/31/2020 7:33 PM CDT Sexual Orientation Straight 10/31/2020 7: 33 PM CDT documented as of this encounter Plan of Treatment Not on file documented as of this encounter Visit Diagnoses Not on filedocumented in this encounter
--- OUTSIDE RECORDS SUMMARY | 2024-04-21 23:30 | XMS_ITS | Continuity of Care Document ---
Author Organization [facility] Address [address] [place] [address] Phone Care Team Providers Care Special Effects Technician Name Role Phone Geo Ashraf DO Unavailable [...] Active Procedures Procedure Date Offic/outpt E&m Estab Mod-hi 2 15 Offic/outpt E&m Estab Mod-hi 2 15 Capsule Endoscopy Thru Ileum Offic/outpt E&m Estab Mod-hi 4 14 Offic/outpt E&m Estab Low-mod 4 Colonoscopy Flex; W/bx 1/mx Ugi Endo; W/bx 1/mx Advance Directives Directive Yes / No Effective Date File Name No Information Encounters Encounter Description Practice Location Reason(s) For Visit Diagnoses Date Provider Providers Copied on Encounter Offic/outpt E&m Estab Mod-hi 2 [facility], [address], [id number], [place] tel:[phone] CAMA Hoffmann anemia (chief complaint)i rritable bowel syndrome (chief complaint) Anemia, unspecIBS Pascalejessy Guardado. [address], [id number], [place]. tel:[phone] Referring Provider: Isabelle Sow MD, [address], [place], [address]. tel:[phone] Offic/outpt E&m Estab Mod-ne 2 [facility], [address], [id number], [place] tel:[phone] CAMA [place] Hoffmann diarrhea (chief complaint) IBSAnemia, unspec Pascalejessy Guardado. [address], [id number], [place]. tel:[phone] Referring Provider: Isabelle Sow MD, [address], [place], [address]. tel:[phone] [facility], [address], [id number], [place] tel:[phone] CAMA [place] Hoffmann Diarrhea [facility] Geo. [address], [place], [place], [id number], [place]. tel:[phone] Referring Provider: Isabelle Sow MD, [address], [place], [address]. [phone] [facility], [address], [place], [place], [id number], [place] tel:[phone] CAMA [place] Hoffmann Diarrhea [facility] Geo. [address], [place], [place], [id number], [place]. tel:[phone] Referring Provider: Isabelle Sow MD, [address], [place], [address]. [phone] [facility], [address], [place], [id number], [place] tel:[phone] SUMEETA [place] Hoffmann Diarrhea [facility] Geo. [address], [place], [id number], [place]. tel:[phone] Referring Provider: Isabelle Sow MD, [address], [place], [address]. tel:[phone] Offic/outpt E&m Estab Mod-hi 4 [facility], [address], [place], [id number], [place] tel:[phone] SUMEETA [place] Hoffmann diarrhea (chief complaint) Diarrhea [facility] Geo. [address], [place], [id number], [place]. tel:[phone] Referring Provider: Isabelle Sow MD, [address], [place], [address]. tel:[phone] Offic/outpt E&m Estab Low-mod [facility], [address], [place], [id number], [place] tel:[phone] [facility] follow up (chief complaint) Diarrhea Levi Flores. [address] [place], [address], [place]. tel:[phone] Referring Provider: Isabelle Sow MD, [address] [place], [address]. tel:[phone] [facility], [address] [facility] [address] [facility], [id number], [place] tel:[phone] [facility] Diarrhea Levi Flores. [address] [place], [address], [place]. tel:[phone] Referring Provider: Nelson Diaz MD, [address] [place], [address]. Family History Family Member Type Diagnosis Age At Onset Problem (finding) Family history of asthm a Problem (finding) Family history of diabetes mellitus type 2 Problem (finding) No family history of Ca ncer, colon Payers Payer name Insurance type Covered democrat ID Authoriza tion(s) Medicare Claims Administrators [id number] [facility] [id number] Social History Type Description Quantity Date Captured [...] levi were ok. Had another colon in [facility] this summer and it was fine also. [...] all this Hospital follow up Seen at [facility] with chronic diarrhea, nausea and vomiting. Had neg EGD and colon there with biopsies. GI sxs have totally resolved. Pt just feels fatigued now. Functional Status Date Functional Assessmen t No Information Instructions Date Instruction Additional Infor mation No Information Assessments Type Assessment Date assessment Anemia, unspec assessment IBS Mental Status Date Cognitive Assessment Orientation - [place] ed to time, place, person, situation.Normal Orientation Patient Care Teams Name Effective Dates (start - stop) Status Members No Information
--- OUTSIDE RECORDS SUMMARY | 2024-04-21 23:30 | XMS_ITS ---
Author Organization [facility] Address [address] [place] [address] Care Team Providers Care Sap Trainer Name Role Phone Unavailable Unavailable Unavailable Surgery Details Not on file Complications Check Surgery Details section. Procedure Estimated Blood Loss Check Surgery Details section. Procedure Findings Check Surgery Details section. Procedure Specimens Taken Check Surgery Details section.
--- OUTSIDE RECORDS SUMMARY | 2024-04-21 23:30 | XMS_ITS | Referral Summary ---
Author Organization [facility] Address [address] [place] [address] Care Team Providers Care Field Machinist Name Role Phone Unavailable Primary Care Provider Unavailabl e Source Comments Patient records contain information from all sites at [facility]. For routine questions regarding patient records, call [phone] during business hours, M-F 8:00 AM - 5:00 PM Central Time. Record requests for emergency care only can be directed to [phone] at any time.[facility] Encounters Date Type Department Care Team Description 02/01/2024 9:17 AM CDT - 02/01/2024 11:59 PM CDT Hospital Encounter Department of Radiology, [facility] in [place], [place] [address] [place] [address] Timur Torres M.D. Unspecified Diastolic (Congestive) Heart Failure (HCC) Discharge Disposition: Home or Self Care 02/01/2024 8:54 AM CDT - 02/01/2024 9:16 AM CDT Hospital Encounter Department of Laboratory Medicine and Pathology, [facility] in [place], [place] [address] [place] [address] Timur Torres M.D. Unspecified Diastolic (Congestive) Heart Failure (HCC) Discharge Disposition: Home or Self Care 02/01/2024 2:00 PM CDT Office Visit Department of Cardiovascular Medicine in [place], [place] [address] [place] [address] Siobhan Yuan APRN, C.N.P. Hypertensive Heart Disease With Heart Failure (HCC) (Primary Dx) 01/22/2024 11:30 AM CDT Clinical Communication Virtual Review in [address] [id number] Pre-visit Intake from Last 3 Months Allergies Active Allergy Reactions Criticality Noted Date Comments Diphenhydramine Edema (Reselect Reaction),Other (see comments) 01/17/2007 As of Mar 2017: taking Acetaminophen (Tylenol) PM ( tylenol and benadryl). Metoprolol Rash Low 10/07/2020 Quinolones Other (see comments),Rash 01/17/2007 numb from top - boattom Medications Medication Sig Dispensed Refills Start Date End Date Status pantoprazole (Protonix) 20 mg EC tablet Take 1 tablet by mouth daily. 08/31/2020 Active dilTIAZem CD (CARDIZEM CD/CARTIA XT) 240 mg 24 hr capsule Take 1 capsule by mouth daily. 10/28/2020 Active loperamide (IMODIUM A-D) 2 mg tablet Take 1 tablet by mouth as needed. 06/04/2020 Active fluticasone propionate (FLONASE ALLERGY RELIEF NASAL) Administer 1 spray into nostril(s) as needed. Active cyanocobalamin (Vitamin B-12) 1,000 mcg tablet Take 1 tablet by mouth daily. 04/28/2022 Active potassium chloride (Klor-Con M) 20 mEq ER tablet Take 20 mEq by mouth daily. Active sacubitriL-valsarta n (Entresto) 97-103 mg per tablet Take 1 tablet by mouth 2 (two) times a day. 180 tablet 3 02/01/2024 Active torsemide (Demadex) 20 mg tablet Take 1 tablet (20 mg total) by mouth daily. 90 tablet 3 02/01/2024 Active Active Problems Patient Care Coordination No te Formatting of this note is d ifferent from the original. Ms. oNrris graduated RN care coordination on: 02/24/21 Mrs. Norris consented to heart failure RN care coordination program: 11/19/20 Interdisciplinary plan of care: Improve heart failure self management through education including use of a sick day plan when appropriate. ? ? Follow a low sodium diet 2,000 mg or less per day ? ? Weigh daily ? ? Increase awareness of symptoms indicating worsening heart failure and/or fluid retention ? ? Optimize medications Entresto as ordered by prescriber ? ? Contact RN grounds caretaker for sudden weight gain or worsening symptoms ? ? Contact EMS for emergent conditions Current functional limitations, or assistive devices/DME used: bathroom scale, blood pressure cuff Current Community Resources: [facility] (P: [phone]; ) Problem Noted Date Diagnosed Date Tachycardia 12/02/2020 Hypertensive Heart Disease With Heart Failure Immunizations Name Administration Dates Next Due PPSV23 07/24/2011 Tdap 07/24/2011 Social History Tobacco Use Types Packs/Day Years Used Date Smoking Tobacco: Former Cigarettes 0 01/20/1955 - 09/07/1969 Smokeless Tobacco: Never Alcohol Use Standard Drinks/Week Comments Yes 5 (1 standard drink = 0.6 oz pur e alcohol) [facility] Utilities Answer Date Recorded In the past 12 months has e [employer], gas, oil, or water [employer] threatened to shut off services in your [...] 11/27/2020 How often do you attend chur or catholic services? 1 to 4 times per year 11/27/2020 Do you belong to any clubs o r organizations such as restorationist groups, unions, fraternal or athletic groups, or [...] and heating? Not hard at all 11/27/2020 [facility] Occupat ional Health - Occupational Stress [...] your living situation today? [facility] 01/29/2024 Education Answer Date Recorded What is the highest level of school you have completed or the highest degree you have received? 12th grade 10/31/2020 Sex and Gender Information Value Date Recorded Sex Assigned at Female 01/29/2024 12:46 PM CDT Gender Identity Female 10/31/2020 7:33 PM CDT Sexual Orientation Straight 10/31/2020 7: 33 PM CDT Last Filed Vital Signs Vital Sign Reading Time Taken Comments Blood Pressure 158/66 02/01/2024 11:01 AM CDT Pulse 81 02/01/2024 11:01 AM CDT Temperature - - Respiratory Rate - - Oxygen Saturation - - Inhaled Oxygen Concentration - - Weight 69.2 kg (152 lb 7.2 oz) 02/01/2024 11:01 AM CDT Height 159.3 cm (5' 2.72) 02/01/2024 11:01 AM C DT Body Mass Index 27.25 02/01/2024 11:01 AM CDT Plan of Treatment Not on file Procedures Procedure Name Priority Date/Time Associated Diagnosis Comments ECG Routine 02/01/2024 9:51 AM CDT Unspecified Diastolic (Congestive) Heart Failure (HCC) DX CHEST AP OR PA AND LATERAL 2 VIEWS RAD - Routine (most inpatients and all outpatients) 02/01/2024 9:26 AM CDT Unspecified Diastolic (Congestive) Heart Failure (HCC) LIPID PANEL, S Routine 02/01/2024 9:09 AM CDT Unspecified Diastolic (Congestive) Heart Failure (HCC) NT-PRO B-TYPE NATRIURETIC PEPTIDE (BNP), S Routine 02/01/2024 9:09 AM CDT Unspecified Diastolic (Congestive) Heart Failure (HCC) COMPREHENSIVE METABOLIC PANEL, S/P Routine 02/01/2024 9:09 AM CDT Unspecified Diastolic (Congestive) Heart Failure (HCC) CBC WITHOUT DIFFERENTIAL, B Routine 02/01/2024 9:09 AM CDT Unspecified Diastolic (Congestive) Heart Failure (HCC) from Last 3 Months Results * ECG 12 Lead (02/01/2024 9:51 AM CDT) Ventricular Rate ECG/Min 85 BPM MUSE [place] Interval 178 ms MUSE QRSD Interval 96 ms MUSE QT Interval 376 ms MUSE QTC Interval 447 ms MUSE P [place] 70 degrees MUSE R [place] -51 degrees MUSE T Wave [place] 50 degrees MUSE 02/01/2024 9:51 AM CDT 02/01/2024 10:02 AM CDT Impressions MUSE - 02/01/2024 10:02 AM CDT Normal sinus rhythm Left axis deviation Minimal voltage criteria for LVH, may be normal variant Nonspecific ST abnormality When compared with ECG of 28-Dec-2021 08:38, No significant change was found Reviewed by CHIKIS Gillette Narrative Procedure Note Homero Ferrera M.D., Ph.D. - 02/01/2024 IMPRESSION: Normal sinus rhythm Left axis deviation Minimal voltage criteria for LVH, may be normal variant Nonspecific ST abnormality When compared with ECG of 28-Dec-2021 08:38, No significant change was found Reviewed by CHIKIS Gillette Timur Torres M.D. ECG ORDERABLES MUSE NA * DX Chest AP or PA and [...] skeletal changes. No change since 12/28/2021. Timur Torres M.D. IMG DIAGNOSTIC IMAGI NG PROCEDURES * (ABNORMAL) Lipid Panel (02/01/2024 9:09 AM [...] CDT Timur Torres M.D. LAB BLOOD ADD-ON [facility] [address] [place] [address], [place] [facility] [address] [place] [address] * NT-Pro B-Type Natriuretic Peptide (BNP) (02/01/2024 9:09 AM CDT) Pathologist [facility] NT-Pro BNP 215 <=540 pg/mL 02/01/2024 10:39 [...] CDT Timur Torres M.D. LAB BLOOD ADD-ON [facility] [address] [place] [address], [facility] [address] [place] [address] * (ABNORMAL) CBC without Differential (02/01/2024 9:09 AM CDT) Pathologist [facility] Hemoglobin 13.7 11.6 - 15.0 g/dL 02/01/2024 [...] CDT Timur Torres M.D. LAB BLOOD ADD-ON [facility] [address] [place] [address], [facility] DTL [facility] [address] [place] [address] * (ABNORMAL) Comprehensive Metabolic Panel (02/01/2024 9:09 AM CDT) [facility] Potassium, S 4.1 3.6 - 5.2 [...] CDT Timur Torres M.D. LAB BLOOD ADD-ON [facility] [address] [place] [address], [facility] DTL [facility] [address] [place] [address] from Last 3 Months
--- OUTSIDE RECORDS SUMMARY | 2024-04-21 23:30 | XMS_ITS | Clinical Summary ---
Author Organization [facility] Address [address] [place] [address] Care Team Providers Care Loading Unit Tool Setter Name Role Phone Unavailable Primary Care Provider Unavailabl e Source Comments Patient records contain information from all sites at [facility]. For routine questions regarding patient records, call [phone] during business hours, M-F 8:00 AM - 5:00 PM Central Time. Record requests for emergency care only can be directed to [phone] at any time.[facility] Allergies Active Allergy Reactions Criticality Noted Date [...] is d ifferent from the original. Ms. Norris graduated RN care coordination on: 02/24/21 Mrs. [...] ordered by prescriber ? ? Contact RN healthcare network pricing consultant for sudden weight gain or worsening symptoms ? ? Contact EMS for emergent conditions Current functional limitations, or assistive devices/DME used: bathroom scale, blood pressure cuff Current Community Resources: [facility] (P: [phone]; ) Problem Noted Date Diagnosed Date Tachycardia 12/02/2020 Hypertensive Heart Disease With Heart Failure Encounters Date Type Department Care Team Description 02/01/2024 2:00 PM CDT Office Visit Department of Cardiovascular Medicine in [place], [place] [address] [place] [address] Siobhan Yuan, YOVANI, C.N.P. Hypertensive Heart Disease With Heart Failure (HCC) (Primary Dx) 02/01/2024 9:17 AM CDT - 02/01/2024 11:59 PM CDT Hospital Encounter Department of Radiology, [facility], in [place], [place] [address] [place] [address] Timur Torres M.D. Unspecified Diastolic (Congestive) Heart Failure (HCC) Discharge Disposition: Home or Self Care 02/01/2024 8:54 AM CDT - 02/01/2024 9:16 AM CDT Hospital Encounter Department of Laboratory Medicine and Pathology, [facility], in [place], [place] [address] [place] [address] Timur Torres M.D. Unspecified Diastolic (Congestive) Heart Failure (HCC) Discharge Disposition: Home or Self Care 01/22/2024 11:30 AM CDT Clinical Communication Virtual Review in [place], [place] [address] [place] [address] Pre-visit Intake from Last 3 Months Immunizations Name Administration Dates Next Due PPSV23 07/24/2011 Tdap 07/24/2011 Family History Medical History Relation Name Comments Hypertension Brother Theodore Hypertension Father Mother Hypertension Sister Kelsy Relation Name Status Comments Brother Theodore Father Mother Sister Kelsy Social History Tobacco Use Types Packs/Day Years Used Date Smoking Tobacco: Former Cigarettes 0 01/20/1955 - 09/07/1969 Smokeless Tobacco: Never Alcohol Use Standard Drinks/Week Comments Yes 5 (1 standard drink = 0.6 oz pur e alcohol) [facility] [employer]ities Answer Date Recorded In the past 12 months has [employer], gas, oil, or water [email or web address] threatened to shut off services in your [...] week 11/27/2020 How often do you attend [facility] or latter-day services? 1 to 4 times per year 11/27/2020 Do you belong to any clubs o r organizations such as yazidism groups, unions, fraternal or athletic groups, or [...] and heating? Not hard at all 11/27/2020 [facility] - Occupational Stress Questionnaire Answer Date Recorded [...] your living situation today? I have a st bro place to live 01/29/2024 Education Answer Date [...] 02/01/2024 11:01 AM CDT Plan of Treatment Health Maintenance Due Date Last Done Comments Depression Screening (Annual PHQ-2) 07/24/2023 Fall Risk Screen (Annual) 07/24/2023 COVID-19 Vaccine (2023-2 5 season) 2024 05/22/2023, 04/11/2022, 10/21/2021, Additional history exists Influenza Vaccine (#1) 2024 , 04/06/2022, 04/17/2021, Additional history exists Creatinine Level (Kidney Fun ction Test) 01/31/2025 02/01/2024, 11/14/2022, 04/06/2022, Additional history exists Potassium Level 01/31/2025 02/01/2024, 10/23, 04/06/2022, Additional history exists Sodium Level 01/31/2025 02/01/2024, 2 10/2022, 04/06/2022, Additional history exists DTaP,Tdap,and Td Vaccines (4 - Td or Tdap) 01/07/2031 01/07/2021, 04/09/2012, 07/24/2011, Additional history exists Pneumococcal vaccine (65+ years) Completed 07/09/2015, 07/24/2011, 05/15/1996 Zoster Vaccines Completed 03/10/2018, 10/2017, 12/25/2007 RSV vaccine - (32-3 6 weeks) or 60+ years Completed 05/25/2023 Procedures Procedure Name Priority Date/Time Associated Diagnosis [...] CDT) Ventricular Rate ECG/Min 85 BPM MUSE [place] Interval 178 ms MUSE QRSD Interval 96 ms MUSE QT Interval 376 ms MUSE QTC Interval 447 ms MUSE P [place] 70 degrees MUSE R [place] -51 degrees MUSE T Wave [place] 50 degrees MUSE 02/01/2024 9:51 AM CDT 02/01/2024 10:02 AM CDT Impressions MUSE - 02/01/2024 10:02 AM CDT Normal sinus rhythm Left axis deviation Minimal voltage criteria for LVH, may be normal variant Nonspecific ST abnormality When compared with ECG of 28-Dec-2021 08:38, No significant change was found Reviewed by CHIKIS Gillette Narrative Procedure Note Homero Ferrera M.D., Ph.D. - 07/11/2024 IMPRESSION: Normal sinus rhythm Left axis deviation [...] CDT Timur Torres M.D. LAB BLOOD ADD-ON [address] [address], [facility] [address] * NT-Pro B-Type Natriuretic Peptide (BNP) (02/01/2024 9:09 AM CDT) NT-Pro BNP 215 <=540 pg/mL 02/01/2024 10:39 [...] CDT Timur Torres M.D. LAB BLOOD ADD-ON [facility] [address] [place] [address], [facility] [address] [place] [address] * (ABNORMAL) CBC without Differential (02/01/2024 9:09 [...] CDT Timur Torres M.D. LAB BLOOD ADD-ON [facility] [address] [place], [place] [id number] [place] [address] [address] [place] [address] * (ABNORMAL) Comprehensive Metabolic Panel (02/01/2024 9:09 AM CDT) Pathologist [facility] Potassium, S 4.1 3.6 - 5.2 mmol/L [...] CDT Timur Torres M.D. LAB BLOOD ADD-ON [facility] [address] [place] [address], [place] DTL [facility] [address] [place] [address] from Last 3 Months
--- OUTSIDE RECORDS SUMMARY | 2024-04-21 23:30 | XMS_ITS | Encounter Summary ---
Author Organization [facility] Address [address] [place] [id number] Care Team Providers Care Rocket Test Fire Worker Name Role Phone Unavailable Primary Care Provider Unavailabl e Reason for Visit * Outpatient (Routine) - Closed Specialty Diagnoses / Procedures Referred By Yolanda bush Referred To Contact Cardiovascular Disease Timur Torres M.D. [address] [place] [phone] [facility] Referral ID Status Reason Start Date Expiration Date Visits Re quested Visits Authorized [id number] Closed 12/28/2021 12/28/2022 1 1 Encounter Details Date Type Department Care Team (Latest Contact Info) Description 02/01/2024 2:00 PM CDT Office Visit Department of Cardiovascular Medicine in [place], [place] [address] [place] [phone] Siobhan Yuan, YOVANI, C.N.P. [address] [place] [phone] Hypertensive Heart Disease With Heart Failure (HCC) (Primary Dx) Social History Tobacco Use Types Packs/Day Years Used Date Smoking Tobacco: Former Cigarettes 0 01/20/1955 - 09/07/1969 Smokeless Tobacco: Never Alcohol Use Standard Drinks/Week Comments Yes 5 (1 standard drink = 0.6 oz pur e alcohol) [facility] Utilities Answer Date Recorded In the past 12 months has [employer], gas, oil, or water [employer] threatened to shut off services in your [...] often do you attend chur ch or latter-day services? 1 to 4 times [...] and heating? Not hard at all 11/27/2020 [facility] Questionnaire Answer Date [...] your living situation today? [facility] 01/29/2024 Education Answer [...] PM CDT documented as of this encounter Last Filed Vital Signs Vital Sign Reading [...] Mass Index 27.25 02/01/2024 11:01 AM CDT documented in this encounter Progress Notes * Siobhan Yuan APRN, C.N.P. - 02/01/2024 2:00 PM CDT Heart Failure Clinic Note SUBJECTIVE REFERRING PROVIDER Timur Torres M.D. CHIEF COMPLAINT/REASON FOR VISIT Interim follow-up of heart failure with preserved LVEF HISTORY OF PRESENT ILLNESS Ms. Hyun Norris is a pleasant 89 y.o. female who presents today in follow-up of heart failure with preserved ejection fraction. She was diagnosed with hypertensive heart disease/HFpEF and initially evaluated in our Heart failure in 2020. 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 She had a fat aspirate obtained, of PYP scan and light chains. Her PYP scan was negative for TTR amyloid, the fat aspirate was without evidence of amyloid and the MRI showed no evidence of infiltrative disease. She did have concentric hypertrophy and an overall normal LVEF. She was initiated on guideline directed medical therapy. At that time her heart failure with preserved ejection fraction was noted to be secondary to hypertension in the setting of non modifiable risk factors of age and gender. She saw Dr. Timur Torres on 12/28/2021 in our Heart failure Clinic, his note of that date was reviewed. She reported significant improvement of her symptoms with the initiation of Entresto and torsemide in place of furosemide. Since her visit here in December of 2021 she describes ???feeling wonderful?? . She notes that the Entresto has been ???a miracle drug. She continues to endorse NYHA functional class 1-2 symptoms. She denies any new symptoms of decompensation specifically orthopnea, PND, peripheral congestion. She denies emergency department visits or hospitalizations due to cardiovascular events. She is attempting to maintain regular activity with intermittent walking. She does shopping, she has been ambulating to all of her clinic appointments and to and from parking ramps without significant limitations. She checks her blood pressure at home with consistently elevated SBP of 140-150 mm Hg., she is checking her weights regularly and typically runs about 160 lb. She is tolerating guideline directed medical therapy with torsemide 20 mg daily, Entresto 97-103 mg twice daily. She has not on an aldosterone antagonist, she has been endorsing NYHA functional class 1 to occasionally 2 symptoms. She does not limit her fluids, they eat out most days of the week and she has not consistently limiting her sodium intake. She consumes 2-3 servings of alcohol most days of the week, typically wine. She sees her local doctor for routine visits and health concerns. Heart Failure Date of diagnosis: 2020 Type/Etiology of heart failure: Heart failure with preserved LVEF/hypertensive heart disease NYHA class: 1-2 Devices: None Dry weight: 160 lb REVIEW OF SYSTEMS Pertinent positives and negatives as documented in the above history of present illness. The following portions of the patient's history were reviewed and updated as appropriate: allergies, current medications, family history, medical history, social history and surgical history. OBJECTIVE Vitals: 02/01/24 1101 BP: 158/66 BP Location: Left arm Patient Position: Sitting Cuff Size: Regular Pulse: 81 Weight: 69.2 kg Height: 159.3 cm Wt 69.2 kg Ht 159.3 cm Body mass index is 27.25 kg/m??. Body surface area is 1.75 meters squared. Current Medications: cyanocobalamin (Vitamin B-12) 1,000 mcg tablet, Take 1 tablet by mouth daily. dilTIAZem CD (CARDIZEM CD/CARTIA XT) 240 mg 24 hr capsule, Take 1 capsule by mouth daily. fluticasone propionate (FLONASE ALLERGY RELIEF NASAL), Administer 1 spray into nostril(s) as needed. loperamide (IMODIUM A-D) 2 mg tablet, Take 1 tablet by mouth as needed. pantoprazole (Protonix) 20 mg EC tablet, Take 1 tablet by mouth daily. potassium chloride (Klor-Con M) 20 mEq ER tablet, Take 20 mEq by mouth daily. sacubitriL-valsartan (Entresto) 97-103 mg per tablet, Take 1 tablet by mouth 2 (two) times a day. torsemide (Demadex) 20 mg tablet, Take 1 tablet (20 mg total) by mouth daily. PHYSICAL EXAMINATION Physical Exam General: Alert, oriented, appropriate affect, no apparent distress. Eyes: Clear conjunctivae. ENT: Moist oral mucosa. Skin: Warm and dry without any diaphoresis or cyanosis. Vessels: JVP 8-10 cm Heart: Rate and rhythm are regular Lungs: Clear bilaterally Abdomen: No tenderness or hepatosplenomegaly noted. Extremities: Well perfused, no edema, skin is very dry Neuro: Alert and orientated times 3. DIAGNOSTICS Laboratory studies: Hemoglobin 13.7, white count 10.2, platelets 292, sodium 137, potassium 4.1, chloride 99, bicarb 26, BUN 17, creatinine 1.29 (EGFR 40), alkaline phosphatase 110, AST 16, NT proBNP 215, total cholesterol 238, HDL 95, LDL 126, triglycerides 100 Pertinent imaging studies have been reviewed and are notable for: EC02/01/2024 Normal sinus rhythm Chest x-ray: 02/01/2024 Heart size and pulmonary vascularity are within normal limits, no change since 12/28/2021 ASSESSMENT / PLAN #1 Heart failure preserved LVEF #2 NYHA class 1-2, ACC/AHA stage C #3 Systemic hypertension, suboptimally controlled #4 Elevated WBC, longstanding by history #5 CKD stage 3 This 89-year-old female presents today accompanied by her for follow-up of heart failure with preserved LVEF, previously NYHA class 2 to occasionally 3. She was initiated on Entresto at her last visit here in 2021 with marked improvement of her symptoms, improved functional status. She denies any symptoms of decompensation, her NT proBNP is within normal range. Her blood pressure is suboptimally controlled, systolic BP is typically 140-150 mm Hg. She remains on diltiazem for hypertension, torsemide as well as the Entresto. SGLT2 inhibitors were cost prohibitive, she was not initiated on an aldosterone antagonist and now endorses NYHA class 1-2 symptoms, feels as good as she had an jodie long time. He has been a lot of time today on Education specifically the difficulty in limiting your sodium when taking meals in a restaurant most days of the week. She is also consuming between 2 and 3 alcoholic beverages every night of the week, does not limit her fluid intake in general. Given that she feels so well she has not inclined to make significant changes. I will not add spironolactone in the setting given the improvement of her symptoms instability overall. We did discuss the use of an additional dose of torsemide if her weight goes up over a period of a few days, symptoms worsen or she develops abdominal bloating or lower extremity edema. She is very pleased with her care with her local care provider/primary road sign installer. She will contact us in 2 years if she would like to return otherwise she may pursue care locally. PLAN: No change in medical therapy. We did discuss the use of a sliding dose of an extra dose of torsemide if she puts on 3 lb over 2-3 days or 5 lb above her baseline in the setting of fluid and sodium indiscretion. Return in 2 years with prescheduled testing if she desires, an echocardiogram is not needed unless there is a change in exam or symptoms She is requesting a copy of her testing from today be mailed to her, I will also send a letter HEART FAILURE MEDICAL THERAPY: KARISHMA/ARB/ARNi: Entresto Aldosterone antagonist: NYHA class 1-2 SGLT2 inhibitor: Cost prohibitive Diuretic: Torsemide PATIENT EDUCATION The impression and plans were explained in detail. There were no apparent barriers to learning and understanding. Questions were answered. I spent a total of 40 minutes with the patient and reviewing testing. Siobhan Yuan APRN, C.N.P. Heart Failure Clinic 02/01/24 documented in this encounter Plan of Treatment Not on file documented as of this encounter Visit Diagnoses Diagnosis Hypertensive Heart Disease With Heart Failure (HCC)- Primary documented in this encounter
--- OUTSIDE RECORDS SUMMARY | 2024-04-21 23:31 | XMS_ITS | Clinical Summary ---
Author Organization [facility] Address [place], [place] [address] Care Team Providers Care Consulting Application Engineer Name Role Phone Chinyere Parnell NP Unavailable [phone] Nina Chaney MD Unavailable [phone] Jose Guardado MD Primary Care Provider [phone] Allergies Active Allergy Reactions Criticality Noted Date [...] Stage 3b chronic kidney disease (CKD) 11/21/2021 Overview (11/21/2021): October 2021: Creatinine worsened to 1.5, GFR 34, needs recheck. Racing heart beat 07/04/2020 Paroxysmal SVT (supraventricular tachycardia) ACP (advance care planning) 06/25/2020 Leukocytosis 06/25/2020 Overview (08/03/2020): July 2020: Peripheral smear showing mild leukocytosis without obvious cause. Itching due to drug 06/15/2020 Overview (06/15/2020): 2019: ongoing itching, has seen 2 [employer], had 2 skin biopsy, Though to be a drug rash. May 2020: now stopping Metoprolol . 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 Chaney. Chronic cough 08/04/2016 Overview (09/18/2017): Azithromycin. Stopped losartan, no improvement. Chest x-ray. Jul 2016: augmentin caused diarrhea. and referral to Dr. Cooney. Chest CT negative. May 2017: azithromycin again. Aug 2017: Chronic cough, saw ENT Dr Vásquez, Lymphocytic colitis 06/19/2015 Overview (04/24/2016): Diagnosis made by Dr. Young of [facility], on biopsy May 2015, symptoms improved [...] GI Consult note. follow up. Diarrhea 05/13/2015 Overview (06/21/2015): 2013 and 2014: recurrent. Had work up in 2013. Then Consult with Dr. Tanner April 2015 stool studies negative. Then Consult with Dr. Young of [facility], recommending Flex Sig and stop sertraline (Zoloft). May 2015: Fructose breath test and repeat stool studies negative. Sigmoidoscopy: COLON, LEFT RANDOM, BIOPSY: Mild surface intraepithlial lymphocytosis suggestive of lymphocytic colitis. Symptoms resolved with oral budesonide. Hyponatremia 03/03/2015 Overview (02/14/2016): Feb 2015: Sodium 130. January 2016: Sodium 129. Primary osteoarthritis of both knees 01/30/2015 Overview (09/20/2017): January 2015: x-rays bilateral knees. 2015: Dr. Elizalde did 1 cortisone and 1 hyaluronic acid injection to each knee. Mar 2017: Dr. Cobian did bilateral cortisone knee injections: great improvement. Aug 2017: Dr. Cobian did bilateral cortisone knee injections. Monocytosis 01/30/2015 Overview (02/04/2015): Patient reports Leukocytosis dating back to her 20's. January 2015: peripheral smear showed no abnormality for WBC. UTI (lower urinary tract infection) 11/30/2014 Overview (01/22/2020): November 2014: UTI, E Coli, pansensitive, treatment with bactrim. December 2019: UTI [facility], culture proteus > 100,000. Hypokalemia 11/30/2014 Prediabetes 11/30/2014 Overview (11/30/2014): November 2014: fasting 102, Hemoglobin A1c was 6.3. Unspecified anemia 04/08/2010 Overview (08/03/2020): November 2014: Hemoglobin 11.4. December;January 2015: Hemoglobin 11.3, ordered repeat CBC, retic, and peripheral smear shows mild anemia, normal WBC, no dysplasia, some rouleau, so ?consider SPEP? July 2020: Peripheral smear showing mild leukocytosis without obvious cause. Colon polyps 04/06/2010 Overview (04/06/2010): Colonoscopy 03/2010 polyps repeat in 3 years Mixed hyperlipidemia 04/16/2009 Overview (01/06/2020): May 2015: Was on Simvastatin (Zocor), due to possible trigger for lymphocytic colitis, stopping statin, Consider recheck Cholesterol. October 2019: Severe itchy rash, stopped Atorvastatin (Lipitor) to see if cause, not restarting. Unspecified asthma(493.90) 04/17/2007 SVT (supraventricular tachycardia) 01/17/2007 Overview (07/06/2020): June 2020: started on diltiazem, Symptoms started with blood pressure adjustment and some stress. June 2020: Hospitalized 2nd time, and diltiazem increased. Essential hypertension 01/17/2007 Overview (07/06/2020): January 2015: blood pressure slightly low, stopping [...] time, and diltiazem increased. Nausea and vomiting Overview (06/21/2015): Work up at [facility] and [place]. May 2015: work up diagnosis lymphocytic colitis, symptoms improved with steroid. BCC (basal cell carcinoma), face Overview (11/27/2014): Right side of nose, Derm Dr. Golden Resolved Problems Problem Noted Date Diagnosed Date Resolved Date Type 2 diabetes, HbA1C goal < 8% 10/20/2021 11/14/2022 Acute renal failure superimp osed on stage 3 chronic kidney disease, unspecified acute renal failure type, unspecified whether stage 3a or 3b CKD 10/20/2021 11/14/2022 Anxiety 06/25/2020 11/14/2022 Overview (03/27/2021): June 2020: starting sertraline (Zoloft). Mar 2021: Sertraline (Zoloft) 50mg increased from 25mg. Acquired hypothyroidism 06/19/201510/23 Overview (12/09/2018): diagnosis Abigail, approximately 2011, was on Levothyroxine 25mcg but ran out and not taking Apr 2015 when TSH was normal, no medication indicated at this time. Adjustment disorder with mix ed anxiety and depressed mood 03/03/2015 11/14/2022 Overview (04/02/2015): New symptoms Summer 2014, started sertraline (Zoloft). Mar 2015: doubled sertraline (Zoloft) to 50mg. Immunizations Name Administration Dates Next Due Amb Influenza, Inact (High-d ose) (Flu Clinic Only) 05/13/2016 COVID-19 vaccine ([employer] 30mcg/0.3mL) 12YO+ BIVALENT PF, MDV 04/11/2022 COVID-19 vaccine ([employer] 30mcg/0.3mL) PF, MDV 09/19/2020,08/29/2020 Influenza, High-dose Inactivated 04/02/2015 Influenza, IIV3 (Age >=3 years) 04/08/20 10,04/08/2009,05/02/2008,2006 Influenza, Inactivated AIIV4 (Age 65+ Years) Preserv [...] Outcome GA Total Labor Labor/2nd/3rd Weight Sex Type Anes PTL Kim A1 A5 Name Clin 962 F Vag 965 F Vag-Fo rceps Last Filed Vital Signs Vital Sign Reading Time Taken Comments Blood Pressure 130/60 11/14/2022 1:41 PM CDT Pulse 84 11/14/2022 1:41 PM CDT Temperature 36.8 ??C (98.2 ??F) 08/16/2022 2:01 PM CS T Respiratory Rate 16 08/16/2022 2:01 PM 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 Oxygen Saturation 100% 11/14/2022 1:41 PM CDT Inhaled Oxygen Concentration - - Weight 75.1 kg (165 lb 8 oz) 11/14/2022 1:41 PM CDT Height 161.3 cm (5' 3.5) 07/01/2022 12:47 PM CS T Body Mass Index 28.86 07/01/2022 12:47 PM 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 Plan of Treatment Health Maintenance Due Date Last Done Comments RSV vaccine for adults or (1 - 1-dose 75+ series) 01/20/2012 Medicare Wellness for age 65+ 04/07/2023 04/06/2022, 11/22/2010 Depression screening for age 12+ 04/27/2023 04/27/2022, 04/06/2022, 04/06/2022, Additional history exists BMI (ht and wt on same day) for age 18+ 07/01/2023 07/01/2022, 04/06/2022, 10/20/2021, Additional history exists COVID-19 vaccine series ( season) 2024 04/11/2022, 09/19/2020, 08/29/2020 Influenza for age 65+ 03/24/2024 04/06/2022 , [...] Documents on File Type Date Recorded 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
--- NOTE | 2024-04-21 23:37 | CRLHL7_ITS ---
For Patients: As a result of the Cures Act, medical imaging exams and procedure reports are released immediately into your electronic medical record. You may view this report before your referring provider. If you have questions, please contact your health care provider. Indication: Fall Technique: Three views of the left shoulder Comparison: Left shoulder radiographs dated 08/24/2023 Findings/Impression: Moderate to severe osteoarthritic changes with no acute radiographic abnormality appreciated. Dictated by Mello Marcus MD @ 04/22/2024 12:52:56 AM (Electronically Signed)
--- NOTE | 2024-04-21 23:37 | CRLHL7_ITS ---
For Patients: As a result of the Century Cures Act, medical imaging exams and procedure reports are released immediately into your electronic medical record. You may view this report before your referring provider. If you have questions, please contact your health care provider. Indication: Fall Technique: Noncontrast CT through the head with multiplanar reformats Comparison: CT head performed 12/14/2006 Findings: Brain: No acute hemorrhage. No acute infarct. No significant mass effect or midline shift. No gross evidence of a mass lesion or cerebral edema. Mild chronic microvascular ischemic disease. Jzhc-[id number]-[id number] global parenchymal volume loss. Ventricles: No acute abnormality appreciated. Orbits, sinuses, mastoids: No acute abnormality appreciated. Calvarium and soft tissues: Left frontal and periorbital scalp laceration, no underlying fracture appreciated. Impression: Left frontal and periorbital scalp laceration, no other acute abnormality appreciated. Please note that all CT scans at this facility use dose modulation, iterative reconstruction, and/or weight-based dosing when appropriate to reduce radiation dose to as low as reasonably achievable. Dictated by Mello Marcus MD @ 04/22/2024 12:51:25 AM (Electronically Signed)
--- NOTE | 2024-04-21 23:37 | CRLHL7_ITS ---
For Patients: As a result of the Cures Act, medical imaging exams and procedure reports are released immediately into your electronic medical record. You may view this report before your referring provider. If you have questions, please contact your health care provider. Indication: Fall Technique: Three views of the left knee Comparison: Left knee radiographs dated 08/19/2016 Findings/Impression: Severe tricompartmental degenerative disease with no acute radiographic abnormality appreciated. Dictated by Mello Marcus MD @ 04/22/2024 12:52:05 AM (Electronically Signed)
[2024-04-21] MEDS: ACETAMINOPHEN 500 MG TABLET 1000 MG PO (23:44)
== END 2024-04-22 01:04 | disposition home or self-care (01) ==
PROVIDERS: Emergency Provider Family Medicine; PCP Internal Medicine
DX: S42.142A Displaced fracture of glenoid cavity of scapula, left shoulder, initial encounter for closed fracture (principal); W19.XXXA Unspecified fall, initial encounter
CPT/HCPCS: 70450; 73030; 73562; 99284; 99285; A9270

== ENCOUNTER 2024-04-22 12:23 | Emergency (ER) | payer MEDICARE, SELFPAY ==
[2024-04-22 12:28] VITALS: BP 143/72; PULSE 108; RESP 16; TEMP 36.4; O2SAT 98; BMI 28.3
--- NOTE | 2024-04-22 14:53 | CRLHL7_ITS ---
For Patients: As a result of the Century Cures Act, medical imaging exams and procedure reports are released immediately into your electronic medical record. You may view this report before your referring provider. If you have questions, please contact your health care provider. Indication: Fall 04/21/2024, worsening pain, large hematoma near the left axillary region Technique: Noncontrast CT images captured of the left shoulder and reformatted in multiple planes Comparison: Same-day left shoulder radiographs Findings/Impression: Mildly displaced acute fracture of the anteroinferior glenoid () that may have been the result of a dislocation/relocation shoulder injury. No definite evidence of humeral fracture. The humeral head appears well-aligned within the glenoid. Associated moderate hemarthrosis and soft tissue swelling about the left shoulder, axilla, and upper arm. Moderate left glenohumeral and acromioclavicular degenerative changes. Please note that all CT scans at this facility use dose modulation, iterative reconstruction, and/or weight-based dosing when appropriate to reduce radiation dose to as low as reasonably achievable. Dictated by Geo Lemus MD @ 04/22/2024 3:47:48 PM (Electronically Signed)
--- OUTSIDE RECORDS SUMMARY | 2024-04-22 15:08 | XMS_ITS | Encounter Summary ---
Author Organization [facility] Address [address] [place] [address] Care Team Providers Care Mineral Surveyor Name Role Phone Unavailable Primary Care Provider Unavailabl e Reason for Referral * Outpatient (Routine) - Closed Specialty Diagnoses / Procedures Referred By Contac t Referred To Contact Diagnoses Unspecified Diastolic (Congestive) Heart Failure (HCC) Procedures DX Chest AP or PA and Lateral 2 Views Timur Torres M.D. [address] [place] [phone] [facility] Referral ID Status Reason Start Date Expiration Date Visits Re quested Visits Authorized [id number] Closed 12/28/2021 12/28/2022 1 1 Reason for Visit * Outpatient (Routine) - Closed Specialty Diagnoses / Procedures Referred By Contac t Referred To Contact Diagnoses Unspecified Diastolic (Congestive) Heart Failure (HCC) Procedures DX Chest AP or PA and Lateral 2 Views [place] [phone] [facility] Referral ID Status Reason Start Date Expiration Date Visits Re quested Visits Authorized [id number] Closed 12/28/2021 12/28/2022 1 1 Encounter Details Date Type Department Care Team (Latest Contact Info) Description 02/01/2024 9:17 AM CDT - 02/01/2024 11:59 PM CDT Hospital Encounter Department of Radiology, [facility], in [place], [place] [address] [place] [phone] Timur Torres M.D. [address] [place] [address] Unspecified Diastolic (Congestive) Heart Failure (HCC) Discharge Disposition: Home or Self Care Social History Tobacco Use Types Packs/Day Years Used Date Smoking Tobacco: Former Cigarettes 0 01/20/1955 - 09/07/1969 Smokeless Tobacco: Never Alcohol Use Standard Drinks/Week Comments Yes 5 (1 standard drink = 0.6 oz pur e alcohol) [facility] Utilities Answer Date Recorded In the past 12 months has [employer], gas, oil, or water company threatened to [...] often do you attend chur ch or rastafari services? 1 to 4 times per year 11/27/2020 Do you belong to any clubs o r organizations such as amish groups, unions, fraternal or athletic groups, or [...] and heating? Not hard at all 11/27/2020 [facility] - Occupational [...] your living situation today? I have a [facility] place to live 01/29/2024 Education Answer Date [...]
--- OUTSIDE RECORDS SUMMARY | 2024-04-22 15:08 | XMS_ITS ---
Author Organization [facility] Address [address] [place] [address] Care Team Providers Care Time Stamp Assembler Name Role Phone Unavailable Unavailable Unavailable Surgery Details Not on file Complications Check Surgery Details section. Procedure Estimated Blood Loss Check Surgery Details section. Procedure Findings Check Surgery Details section. Procedure Specimens Taken Check Surgery Details section.
--- OUTSIDE RECORDS SUMMARY | 2024-04-22 15:08 | XMS_ITS | Clinical Summary ---
Author Organization [facility] Address [address] [place] [address] Care Team Providers Care Mission Coordinator Name Role Phone Unavailable Primary Care Provider Unavailabl e Source Comments Patient records contain information from all sites at [facility]. For routine questions regarding patient records, call [phone] during business hours, M-F 8:00 AM - 5:00 PM Central Time. Record requests for emergency care only can be directed to [phone] at any time.[facility] Allergies Active Allergy Reactions Criticality Noted Date [...] ordered by prescriber ? ? Contact RN rn transitional care for sudden weight gain or worsening symptoms ? ? Contact EMS for emergent conditions Current functional limitations, or assistive devices/DME used: bathroom scale, blood pressure cuff Current Community Resources: [facility] (P: [phone]; ) Problem Noted Date Diagnosed Date Tachycardia 12/02/2020 Hypertensive Heart Disease With Heart Failure Encounters Date Type Department Care Team Description 02/01/2024 2:00 PM CDT Office Visit Department of Cardiovascular Medicine in [place], [place] [address] [place] [address] Siobhan Yuan, YOVANI, C.N.P. Hypertensive Heart Disease With Heart Failure (HCC) (Primary Dx) 02/01/2024 9:17 AM CDT - 02/01/2024 11:59 PM CDT Hospital Encounter Department of Radiology, [facility], in [place], [place] [address] [place] [address] Timur Torres M.D. Unspecified Diastolic (Congestive) Heart Failure (HCC) Discharge Disposition: Home or Self Care 02/01/2024 8:54 AM CDT - 02/01/2024 9:16 AM CDT Hospital Encounter Department of Laboratory Medicine and Pathology, [facility], in [place], [place] [address] [place] [address] Timur Torres M.D. Unspecified Diastolic (Congestive) Heart Failure (HCC) Discharge Disposition: Home or Self Care 01/22/2024 11:30 AM CDT Clinical Communication Virtual Review in [place], [place] [address] [place] [address] Pre-visit Intake from Last 3 Months Immunizations [...] drink = 0.6 oz pur e alcohol) [facility] mphoriaities Answer Date Recorded In the past 12 months has [employer], gas, oil, or water [employer] threatened to shut off services in your [...] week 11/27/2020 How often do you attend [facility] or episcopal services? 1 to 4 times per year 11/27/2020 Do you belong to any clubs o r organizations such as spiritism groups, unions, fraternal or athletic groups, or [...] and heating? Not hard at all 11/27/2020 [facility] - [facility] Stress Questionnaire Answer Date [...] CDT) Ventricular Rate ECG/Min 85 BPM MUSE [place] Interval 178 ms MUSE QRSD Interval 96 ms MUSE QT Interval 376 ms MUSE QTC Interval 447 ms MUSE P [place] 70 degrees MUSE R [place] -51 degrees MUSE T Wave [place] 50 degrees MUSE 02/01/2024 9:51 AM CDT [...] CDT Timur Torres M.D. LAB BLOOD ADD-ON [address] [address], [facility] [place] [address] * NT-Pro B-Type Natriuretic Peptide (BNP) (02/01/2024 [...] CDT Timur Torres M.D. LAB BLOOD ADD-ON [facility] [address] [place] [address], [facility] [address] [place] [address] * (ABNORMAL) CBC without Differential (02/01/2024 9:09 [...] CDT Timur Torres M.D. LAB BLOOD ADD-ON [facility] [address] [place], [place] [address] [place] [address] [address] [place] [address] * (ABNORMAL) Comprehensive Metabolic Panel (02/01/2024 9:09 AM CDT) Pathologist [facility] Potassium, S 4.1 3.6 - 5.2 mmol/L [...] CDT Timur Torres M.D. LAB BLOOD ADD-ON [facility] [address] [place] [address], [place] DTL [facility] [address] [place] [address] from Last 3 Months
--- OUTSIDE RECORDS SUMMARY | 2024-04-22 15:08 | XMS_ITS | Referral Summary ---
Author Organization [facility] Address [address] [place] [address] Care Team Providers Care Arch Pad Cementer Name Role Phone Unavailable Primary Care Provider Unavailabl e Source Comments Patient records contain information from all sites at [facility]. For routine questions regarding patient records, call [phone] during business hours, M-F 8:00 AM - 5:00 PM Central Time. Record requests for emergency care only can be directed to [phone] at any time.[facility] Encounters Date Type Department Care Team Description 02/01/2024 9:17 AM CDT - 02/01/2024 11:59 PM CDT Hospital Encounter Department of Radiology, [facility] in [place], [place] [address] [place] [address] Timur Torres M.D. Unspecified Diastolic (Congestive) Heart Failure (HCC) Discharge Disposition: Home or Self Care 02/01/2024 8:54 AM CDT - 02/01/2024 9:16 AM CDT Hospital Encounter Department of Laboratory Medicine and Pathology, [facility] in [place], [place] [address] [place] [address] Timur Torres M.D. Unspecified Diastolic (Congestive) Heart Failure (HCC) Discharge Disposition: Home or Self Care 02/01/2024 2:00 PM CDT Office Visit Department of Cardiovascular Medicine in [place], [place] [address] [place] [address] Siobhan Yuan APRN, C.N.P. Hypertensive Heart Disease With Heart Failure (HCC) (Primary Dx) 01/22/2024 11:30 AM CDT Clinical Communication Virtual Review in [address] [phone] Pre-visit Intake from Last 3 Months Allergies [...] ordered by prescriber ? ? Contact RN progressive care unit registered nurse for sudden weight gain or worsening symptoms ? ? Contact EMS for emergent conditions Current functional limitations, or assistive devices/DME used: bathroom scale, blood pressure cuff Current Community Resources: [facility] (P: [phone]; ) Problem Noted Date Diagnosed Date Tachycardia 12/02/2020 Hypertensive Heart Disease With Heart Failure Immunizations Name Administration Dates Next Due PPSV23 07/24/2011 Tdap 07/24/2011 Social History Tobacco Use Types Packs/Day Years Used Date Smoking Tobacco: Former Cigarettes 0 01/20/1955 - 09/07/1969 Smokeless Tobacco: Never Alcohol Use Standard Drinks/Week Comments Yes 5 (1 standard drink = 0.6 oz pur e alcohol) [facility] Utilities Answer Date Recorded In the past 12 months has e [employer], gas, oil, or water [employer] threatened to shut off services in your [...] How often do you attend chur or scientologist services? 1 to 4 times per year 11/27/2020 Do you belong to any clubs o r organizations such as muslim groups, unions, fraternal or athletic groups, or [...] and heating? Not hard at all 11/27/2020 [facility] Occupat ional Health - Occupational Stress [...] situation today? [facility] 01/29/2024 Education Answer Date [...] CDT) Ventricular Rate ECG/Min 85 BPM MUSE [place] Interval 178 ms MUSE QRSD Interval 96 ms MUSE QT Interval 376 ms MUSE QTC Interval 447 ms MUSE P [place] 70 degrees MUSE R [place] -51 degrees MUSE T Wave [place] 50 degrees MUSE 02/01/2024 9:51 AM CDT [...] Torres M.D. LAB BLOOD ADD-ON [facility] [address] [place] [address], [place] [facility] [place] [address] [place] [address] * NT-Pro B-Type Natriuretic Peptide (BNP) (02/01/2024 9:09 AM CDT) Pathologist [facility] NT-Pro BNP 215 <=540 pg/mL 02/01/2024 10:39 [...] CDT Timur Torres M.D. LAB BLOOD ADD-ON [facility] [address] [place] [address], [facility] [address] [place] [address] * (ABNORMAL) CBC without Differential (02/01/2024 9:09 AM CDT) Pathologist [facility] Hemoglobin 13.7 11.6 - 15.0 g/dL 02/01/2024 [...] CDT Timur Torres M.D. LAB BLOOD ADD-ON [facility] [address] [place] [address], [facility] DTL [facility] [address] [place] [address] * (ABNORMAL) Comprehensive Metabolic Panel (02/01/2024 9:09 AM CDT) [facility] Potassium, S 4.1 3.6 - 5.2 mmol/L [...] CDT Timur Torres M.D. LAB BLOOD ADD-ON [facility] [address] [place] [address], [facility] DTL [facility] [address] [place] [address] from Last 3 Months
--- OUTSIDE RECORDS SUMMARY | 2024-04-22 15:09 | XMS_ITS | Encounter Summary ---
Author Organization [facility] Address [address] [place] [address] Care Team Providers Care Needle Loom Setter Name Role Phone Unavailable Primary Care Provider Unavailabl e Reason for Visit * Outpatient (Routine) - Closed Specialty Diagnoses / Procedures Referred By Yolanda bush Referred To Contact Cardiovascular Disease Timur Torres M.D. [address] [place] [phone] [facility] Referral ID Status Reason Start Date Expiration Date Visits Re quested Visits Authorized [id number] Closed 12/28/2021 12/28/2022 1 1 Encounter Details Date Type Department Care Team (Latest Contact Info) Description 02/01/2024 2:00 PM CDT Office Visit Department of Cardiovascular Medicine in [place], [place] [address] [place] [phone] Siobhan Yuan, YOVANI, C.N.P. [address] [place] [phone] Hypertensive Heart Disease With Heart Failure (HCC) (Primary Dx) Social History Tobacco Use Types Packs/Day Years Used Date Smoking Tobacco: Former Cigarettes 0 01/20/1955 - 09/07/1969 Smokeless Tobacco: Never Alcohol Use Standard Drinks/Week Comments Yes 5 (1 standard drink = 0.6 oz pur e alcohol) [facility] Utilities Answer Date Recorded In the past 12 months has [employer], gas, oil, or water [employer] threatened to shut off services in your [...] often do you attend chur ch or mormon services? 1 to 4 times per year 11/27/2020 Do you belong to any clubs o r organizations such as taoism groups, unions, fraternal or athletic groups, or [...] and heating? Not hard at all 11/27/2020 [facility] - Occupational Stress Questionnaire Answer Date [...] your living situation today? I have a [facility] place to live 01/29/2024 Education Answer [...] her care with her local care provider/primary senior construction project manager. She will contact us in 2 years [...]
--- OUTSIDE RECORDS SUMMARY | 2024-04-22 15:09 | XMS_ITS | Encounter Summary ---
Author Organization [facility] Address [address] [place] [address] Care Team Providers Care Swahili Teacher Name Role Phone Unavailable Primary Care Provider Unavailabl e Reason for Visit * Reason Onset Date Comments Pre-visit Intake 01/22/2024 Encounter Details Date Type Department Care Team (Latest Contact Info) Description 01/22/2024 11:30 AM CDT Clinical Communication Virtual Review in [address] [address] Pre-visit Intake Social History Tobacco Use Types [...] often do you attend chur ch or congregation services? 1 to 4 times per year 11/27/2020 Do you belong to any clubs o r organizations such as zoroastrian groups, unions, fraternal or athletic groups, or [...] and heating? Not hard at all 11/27/2020 [facility] of Occupat [facility] Health - Occupational Stress Questionnaire Answer Date [...] place to sleep or slept in a fpc (including now)? No 11/27/2020 Nutrition Answer Date [...]
--- OUTSIDE RECORDS SUMMARY | 2024-04-22 15:09 | XMS_ITS | Encounter Summary ---
Author Organization [facility] Address [address] [place] [address] Care Team Providers Care Liner Replacer Name Role Phone Unavailable Primary Care Provider Unavailabl e Encounter Details Date Type Department Care Team (Latest Contact Info) Description 02/01/2024 8:54 AM CDT - 02/01/2024 9:16 AM CDT Hospital Encounter Department of Laboratory Medicine and Pathology, [place], [place] [address] [place] [phone] Timur Torres M.D. [address] [place] [phone] Unspecified Diastolic (Congestive) Heart Failure (HCC) Discharge Disposition: Home or Self Care Social History Tobacco Use Types Packs/Day Years Used Date Smoking Tobacco: Former Cigarettes 0 01/20/1955 - 09/07/1969 Smokeless Tobacco: Never Alcohol Use Standard Drinks/Week Comments Yes 5 (1 standard drink = 0.6 oz pur e alcohol) [facility] Utilities Answer Date Recorded In the past 12 months has [employer] electric, gas, oil, or water company threatened [...] often do you attend chur ch or hoahaoism services? 1 to 4 times per year 11/27/2020 Do you belong to any clubs o r organizations such as catholic groups, unions, fraternal or athletic groups, or [...] and heating? Not hard at all 11/27/2020 [facility] of Occupat ional Health [...] your living situation today? I have a [facility] place to live 01/29/2024 Education Answer Date [...] M.D. LAB BLOOD ADD-ON Performing Organization Address City/[facility] Co de Phone Number [facility] [address] [place], [place] [phone] [place] [address] * NT-Pro B-Type Natriuretic Peptide (BNP) (02/01/2024 [...] M.D. LAB BLOOD ADD-ON Performing Organization Address [facility] Co de Phone Number [facility] [address] [place], [place] [phone] [place] [address] * (ABNORMAL) Comprehensive Metabolic Panel (02/01/2024 9:09 AM CDT) [facility] Potassium, S 4.1 3.6 - 5.2 mmol/L [...] CDT Timur Torres M.D. LAB BLOOD ADD-ON [facility] [address] [place] [address], [facility] [address] [place] [address] * (ABNORMAL) CBC without Differential (02/01/2024 9:09 [...] CDT Timur Torres M.D. LAB BLOOD ADD-ON [facility] [place] [address] [place] [address], [facility] [address] [place] [address] documented in this encounter Visit Diagnoses Diagnosis Unspecified Diastolic (Congestive) Heart Failure (HCC) documented in this encounter
--- OUTSIDE RECORDS SUMMARY | 2024-04-22 15:10 | XMS_ITS | Continuity of Care Document ---
Author Organization [facility] Address [address] [facility] [address] [place] [address] Phone Care Team Providers Care Rapid Outsole Stitcher Name Role Phone Geo Ashraf DO Unavailable [...] on Encounter Offic/outpt E&m Estab Mod-hi 2 [facility], [address], [id number], [place] tel:[phone] CAM[facility] Hoffmann anemia (chief complaint)i rritable bowel syndrome (chief complaint) Anemia, unspecIBS Pascalejessy Guardado. [address], [id number], [place]. tel:[phone] Referring Provider: Isabelle Sow MD, [address], [place], [address]. tel:[phone] Offic/outpt E&m Estab Mod-co 2 [facility], [address], [id number], [place] tel:[phone] [facility] [place] Hoff[place] diarrhea (chief complaint) IBSAnemia, unspec Pascalejessy Guardado. [address], [id number], [place]. tel:[phone] Referring Provider: Isabelle Sow MD, [address], [place], [address]. tel:[phone] [facility], [address], [id number], [place] tel:[phone] [facility] [place] Diarrhea [facility] Geo. [address], [place], [place], [id number], [place]. tel:[phone] Referring Provider: Isabelle Sow MD, [address], [place], [address]. [phone] [facility], [address], [place], [place], [id number], [place] tel:[phone] [facility] [place] Diarrhea [facility]. [address], [place], [place], [id number], [place]. tel:[phone] Referring Provider: Isabelle Sow MD, [address], [place], [address]. [phone] [facility], [address], [place], [id number], [place] tel:[phone] [facility] [place] Diarrhea [facility]. [address], [place], [id number], [place]. tel:[phone] Referring Provider: Isabelle Sow MD, [address], [place], [address]. tel:[phone] Offic/outpt E&m Estab Mod-hi 4 [facility], [address], [place], [id number], [place] tel:[phone] SU[facility] [place] diarrhea (chief complaint) Diarrhea [facility]. [address], [place], [id number], [place]. tel:[phone] Referring Provider: Isabelle Sow MD, [address], [place], [address]. tel:[phone] Offic/outpt E&m Estab Low-mod [facility], [address], [place], [id number], [place] tel:[phone] [facility] follow up (chief complaint) Diarrhea Levi Flores. [address] [place], [address], [place]. tel:[phone] Referring Provider: Isabelle Sow MD, [address] [place], [address]. tel:[phone] [facility], [address] [facility] Shellie [facility] [place] [facility] [place], [id number], [place] tel:[phone] [facility] Diarrhea Levi Flores. [address] [place], [address], [place]. tel:[phone] Referring Provider: Nelson Diaz MD, [address] [place], [address]. Family History Family Member Type Diagnosis Age At Onset Problem (finding) Family history of asthm a Problem (finding) Family history of diabetes mellitus type 2 Problem (finding) No family history of Ca ncer, colon Payers Payer name Insurance type Covered alliance party ID Authoriza tion(s) Medicare Claims Administrators [id number] [facility] [id number] Social History Type Description Quantity Date Captured [...] levi were ok. Had another colon in [facility] this summer and it was [...] all this Hospital follow up Seen at [facility] with chronic diarrhea, nausea and vomiting. Had neg EGD and colon there with biopsies. GI sxs have totally resolved. Pt just feels fatigued now. Functional Status Date Functional Assessmen t No Information Instructions Date Instruction Additional Infor mation No Information Assessments Type Assessment Date assessment Anemia, unspec assessment IBS Mental Status Date Cognitive Assessment Orientation - [place] ed to time, place, person, situation.Normal Orientation Patient Care Teams Name Effective Dates (start - stop) Status Members No Information
--- OUTSIDE RECORDS SUMMARY | 2024-04-22 15:10 | XMS_ITS | Clinical Summary ---
Author Organization [facility] Address [place], [place] [address] Care Team Providers Care Laserist Name Role Phone Chinyere Parnell NP Unavailable [phone] Nina Chaney MD Unavailable [phone] Jose Guardado MD Primary Care Provider [phone] Allergies Active Allergy Reactions Criticality Noted Date [...] (06/15/2020): 2019: ongoing itching, has seen 2 Bacteriology Research Assistant, had 2 skin biopsy, Though to be [...] (04/24/2016): Diagnosis made by Dr. Young of [place] [facility], on biopsy May 2015, symptoms improved [...] negative. Then Consult with Dr. Young of [facility], recommending Flex Sig and stop sertraline [...] pansensitive, treatment with bactrim. December 2019: UTI [facility], culture proteus > 100,000. Hypokalemia 11/30/2014 [...] and vomiting Overview (06/21/2015): Work up at [facility] and [place]. May 2015: work up diagnosis lymphocytic colitis, [...] ose) (Flu Clinic Only) 05/13/2016 COVID-19 vaccine (mTraks-Bio NTech 30mcg/0.3mL) 12YO+ BIVALENT PF, MDV 04/11/2022 COVID-19 vaccine (mTraks-Bio NTech 30mcg/0.3mL) PF, MDV 09/19/2020,08/29/2020 Influenza, High-dose [...] T Respiratory Rate 16 08/16/2022 2:01 PM SUCTION PLATE ROLLER HAND Oxygen Saturation 100% 11/14/2022 1:41 PM CDT Inhaled Oxygen Concentration - - Weight 75.1 kg (165 lb 8 oz) 11/14/2022 1:41 PM CDT Height 161.3 cm (5' 3.5) 07/01/2022 12:47 PM CS T Body Mass Index 28.86 07/01/2022 12:47 PM SUCTION PLATE ROLLER HAND Plan of Treatment Health Maintenance Due Date [...] Documents on File Type Date Recorded Patient Spray Drier Expl anation Healthcare Directive 04/28/2021 021 * [...] 10:30 AM 10/21/2016 2:29 AM Care Teams Laserist Relationship Specialty [place] [address] [place] [address] PCP - General Family Practice 11/14/22 Chinyere Parnell NP Hematology Nurse Practitioner - Adult 05/14/20 Nina Chaney MD Hematology Oncology 05/14/20
[2024-04-22] MEDS: ACETAMINOPHEN 500 MG TABLET 1000 MG PO (15:33)
[2024-04-22 15:38] VITALS: BP 181/79; PULSE 93; RESP 16; O2SAT 98
--- NOTE | 2024-04-22 15:56 | ED.GENADULT ---
HPI - General Adult General Chief complaint: Shoulder Injury/Pain Stated complaint: Fell yesterday, swelling and black under arm Time Seen by Provider: 04/22/24 14:42 Source: patient Mode of arrival: ambulatory Limitations: no limitations History of Present Illness HPI narrative: Patient is an 89-year-old woman, not anticoagulated, who was here last night after a fall. She had x-rays of her shoulder and knee as well as a CT of her head, had a small laceration repaired. She is here today with her because she has developed some bruising underneath her left shoulder, and she is having increasing pain in her shoulder and shoulder blade. She took Tylenol earlier today which was helpful but that has worn off. Otherwise, she has no new complaints. Related Data Home Medications ?Medication ?Instructions ?Recorded ?Confirmed sacubitril 97 mg-valsartan 103 mg 1 tab PO BID 01/17/23 03/20/24 tablet (Entresto) loperamide 2 mg capsule (Imodium 2 mg PO Q6H PRN 08/24/23 03/20/24 A-D) torsemide 10 mg tablet 20 mg PO QDAY 08/24/23 03/20/24 cyanocobalamin (vitamin B-12) 1,000 mcg PO QDAY 01/17/24 03/20/24 1,000 mcg capsule Previous Rx's ?Medication ?Instructions ?Recorded pantoprazole 20 mg tablet,delayed 20 mg PO QDAY GERD #90 tabs 05/19/23 release diltiazem HCl 240 mg 240 mg PO DAILY #90 caps 09/20/23 capsule,extended release 24 hr alprazolam 0.5 mg tablet 0.5 mg PO BID PRN anxiety #30 tabs 01/17/24 potassium chloride 20 mEq 20 meq PO QDAY Hypokalemia #90 tabs 04/08/24 tablet,extended release(part/cryst) Allergies Allergy/AdvReac Type Severity Reaction Status Date / Time Cephalosporins Allergy Intermediate Diarrhea Verified 03/20/24 14:01 levofloxacin [From Levaquin] Allergy Numbness Verified 03/20/24 14:01 Quinolones Allergy Anaphylaxis Verified 03/20/24 14:01 escitalopram AdvReac Intermediate Diarrhea Verified 03/20/24 14:01 diphenhydramine AdvReac Edema Verified 03/20/24 14:01 [From Benadryl] metoprolol AdvReac Rash Verified 03/20/24 14:01 Review of Systems Status of ROS: Reports: 6 or more systems reviewed and unremarkable except as noted in History and below PFSH [facility] Medical History Onychomycosis ?B35.1 - Tinea unguium (ICD-10) Dysuria ?R30.0 - Dysuria (ICD-10) Neck pain ?M54.2 - Cervicalgia (ICD-10) Shingles ?B02.9 - Zoster without complications (ICD-10) History of methicillin resistant Staphylococcus aureus infection (2013) ?Z86.14 - Personal history of Methicillin resistant Staphylococcus aureus infection (ICD-10) History of malignant neoplasm of skin (2013) ?Z85.828 - Personal history of other malignant neoplasm of skin (ICD-10) History of colonic polyps (04/06/10) ?Z86.010 - Personal history of colonic polyps (ICD-10) Surgical History History of Mohs micrographic surgery for skin cancer ?Z85.828 - Personal history of other malignant neoplasm of skin (ICD-10) ?Z98.890 - Other specified postprocedural states (ICD-10) History of lumbar discectomy (2005) ?Z98.890 - Other specified postprocedural states (ICD-10) History of bone marrow biopsy (05/22/20) ?Z98.890 - Other specified postprocedural states (ICD-10) History of hysterectomy (1997) ?Z90.710 - Acquired absence of both cervix and uterus (ICD-10) History of cataract extraction ?Z98.49 - Cataract extraction status, unspecified eye (ICD-10) History of arthroscopy of right knee (03/20/08) ?Z98.890 - Other specified postprocedural states (ICD-10) Family History Mother Coronary artery disease High blood pressure Father Coronary artery disease Brother Coronary artery disease High blood pressure Sister Esophageal cancer High blood pressure Social History What is your current living situation?: I presently have a place to live Problems where you live: no known problems In the past 12 months, utilities in danger of being shut off: no Smoking Status: Former smoker What tobacco products do you use: cigarettes Smoking quit date/years: >15 years ago Do you use any of these nicotine containing products: None Second hand tobacco smoke exposure: No How often do you have a drink containing alcohol: 4 or more times a week How many standard drinks containing alcohol do you have on a typical day: 1 or 2 How often do you have six or more drinks on one occasion: Never AUDIT-C Alcohol total score: 4 Non-prescribed substance use: denies use How often does anyone, including family, friends and others, physically hurt you: How often does anyone, including family, friends and others, insult or talk down to you: How often does anyone, including family, friends and others, threaten you with harm: How often does anyone, including family, friends and others, scream or curse at you: Little interest or pleasure in doing things: not at all Feeling down, depressed, or hopeless: not at all service: No Exam Narrative: Exam Narrative: Vital signs reviewed In general, alert, nontoxic woman. Head: Normocephalic. She has sutures in place on the left with some surrounding bruising. Neck: Nontender to palpation. Lungs: Breath sounds are clear, equal bilaterally. No increased work of breathing. Extremities: She has some tenderness around the shoulder and over the shoulder blade but no deformity or bruising there, she has a hematoma in the soft tissue just anterior to her axilla. She does not have any underlying chest pain or tenderness. Const: Vital Signs, click to edit/add: Vital Signs - 24 hr 04/22/24 12:28 Temperature 97.6 F Pulse Rate [Right Pulse Oximeter] 108 H Respiratory Rate 16 Blood Pressure [Ri ght Upper Arm] 143/72 H Pulse Oximetry 98 Oxygen Delivery Me thod Room Air Documenting provider has reviewed patient's vital signs: yes Course Course ED Course: We discussed the natural history of hematoma, I do not think this needs any specific evaluation. Because she feels that she is having more significant shoulder pain, is unable to really move the shoulder today, I did order a CT scan of the shoulder to rule out occult fracture. Other considerations would be rotator cuff injury, adhesive capsulitis. CT of the shoulder read as follows by Radiology:Patient: TIMMY NICOLE Facility: [facility] RIS Site . Site : [id number] Study: CT-Shoulder Left without-04/22/2024 3:31:44 PM Ordering Physician: Thalia Salgado Final Report: Indication: Fall 04/21/2024, worsening pain, large hematoma near the left axillary region Technique: Noncontrast CT images captured of the left shoulder and reformatted in multiple planes Comparison: Same-day left shoulder radiographs Findings/Impression: Mildly displaced acute fracture of the anteroinferior glenoid () that may have been the result of a dislocation/relocation shoulder injury. No definite evidence of humeral fracture. The humeral head appears well-aligned within the glenoid. Associated moderate hemarthrosis and soft tissue swelling about the left shoulder, axilla, and upper arm. Moderate left glenohumeral and acromioclavicular degenerative changes. Please note that all CT scans at this facility use dose modulation, iterative reconstruction, and/or weight-based dosing when appropriate to reduce radiation dose to as low as reasonably achievable. Dictated by Geo Lemus MD @ 04/22/2024 3:47:48 PM (Electronic Signature) Patient continues to note reasonably good pain control with Tylenol, would recommend that she continue that. I have given her a sling, we have made a follow-up appointment with Ortho for her. Expectant management for the hematoma, anticipate gradual improvement over the next few weeks. Return for signs or symptoms of infection. Vital Signs Vital signs: Initial Vital Signs Temperature 97.6 F 04/22/24 12:28 Temperature Source Temporal Artery Scan 04/22/24 12:28 Pulse Rate 108 H 04/22/24 12:28 Pulse Rhythm Regular 04/22/24 12:28 Respiratory Rate 16 04/22/24 12:28 Blood Pressure 143/72 H 04/22/24 12:28 Blood Pressure Mean 95 04/22/24 12:28 Blood Pressure Position Sitting 04/22/24 12:28 Pulse Oximetry 98 04/22/24 12:28 Oxygen Delivery Method Room Air 04/22/24 12:28 Vital Signs Temperature 97.6 F 04/22/24 12:28 Pulse Rate 108 H 04/22/24 12:28 Respiratory Rate 16 04/22/24 12:28 Blood Pressure 143/72 H 04/22/24 12:28 Pulse Oximetry 98 04/22/24 12:28 Oxygen Delivery Method Room Air 04/22/24 12:28 Temperature 97.6 F 04/22/24 12:28 Pulse Rate 108 H 04/22/24 12:28 Respiratory Rate 16 04/22/24 12:28 Blood Pressure 143/72 H 04/22/24 12:28 Pulse Oximetry 98 04/22/24 12:28 Oxygen Delivery Method Room Air 04/22/24 12:28 Medications Administered Medications: Discontinued Medications Generic Name Dose Route Start Last Admin Trade Name Freq PRN Reason Stop Dose Admin Acetaminophen 1,000 mg 04/22/24 14:59 04/22/24 15:33 Acetaminophen 500 Mg Tablet PO 04/22/24 15:00 1,000 mg ONCE ONE Administration Discharge Plan Discharge Clinical Impression: Glenoid fracture of shoulder Patient Disposition: Home, Self-Care Condition: Stable Instructions: Scapular Fracture (ED) Additional Instructions: Continue with Tylenol as needed. Sling. Orthopedic follow-up in the coming week as scheduled. Hematoma will improve over the next few weeks. Return for signs of infection such as increasing pain, swelling, redness or warmth. Prescriptions: No Action Entresto 97-103 mg tablet 1 tab PO BID cyanocobalamin (vitamin B-12) 1,000 mcg capsule 1,000 mcg PO QDAY alprazolam 0.5 mg tablet 0.5 mg PO BID PRN (Reason: anxiety) Qty: 30 0RF loperamide [Imodium A-D] 2 mg capsule 2 mg PO Q6H PRN torsemide 10 mg tablet 20 mg PO QDAY pantoprazole 20 mg tablet,delayed release (DR/EC) 20 mg PO QDAY Qty: 90 3RF diltiazem HCl 240 mg capsule,extended release 24hr 240 mg PO DAILY Qty: 90 3RF potassium chloride 20 mEq tablet,ER particles/crystals 20 meq PO QDAY Qty: 90 1RF Follow Up/Referrals: Fred Vaca MD [Primary Care Provider] - Stand Alone Forms: [facility] Info Instructions
[2024-04-22 16:01] VITALS: BP 176/73; PULSE 93; RESP 16; O2SAT 97
[2024-04-22 16:15] VITALS: PULSE 92; O2SAT 97
== END 2024-04-22 16:45 | disposition home or self-care (01) ==
PROVIDERS: Emergency Provider Emergency Medicine; PCP Internal Medicine
DX: S42.145A Nondisplaced fracture of glenoid cavity of scapula, left shoulder, initial encounter for closed fracture (principal); W18.30XA Fall on same level, unspecified, initial encounter
CPT/HCPCS: 73200; 99283; 99284; A9270

== ENCOUNTER 2024-04-27 16:13 | Emergency (ER) | payer MEDICARE, SELFPAY ==
[2024-04-27] VITALS (15 sets, daily range): BP systolic 162–195; BP diastolic 80–93; PULSE 83–90; RESP 16–26; TEMP 36.4; O2SAT 95–100; BMI 27.5
--- NOTE | 2024-04-27 16:59 | ED_ITS ---
HPI - General Adult General Date Seen: 04/27/24 Chief complaint: Shortness of Breath/Dyspnea Stated complaint: fell, hit head, shortness of breath Time Seen by Provider: 04/27/24 16:58 History of Present Illness HPI narrative: 89-year-old female with history of osteoarthritis, GERD, leukocytosis, CHF, lumbar stenosis, chronic kidney disease, supraventricular tachycardia, hypothyroidism, hypertension, hyperlipidemia, anxiety/depression, presenting to the ER today with shortness of breath. She was just discharged from the hospital 4 days ago on Monday. She is feeling dizzy and lightheaded. She was seen in the ER on 04/21 after a fall. It sounds like she had a syncopal event. She had left shoulder pain that was feeling better. Shoulder x-ray was normal. She had bruising over left knee. Knee x-ray was normal. She had a repaired laceration of her left eyebrow. CT scan of her head showed no intracranial bleed. She return to the ER on 04/[address] scan of the shoulder revealed a mildly displaced acute fracture of the anterior inferior glenoid. No humeral fracture. Discharge home with sling and plan for orthopedic follow-up Had office visits 04/[address] Vaca. Pain not controlled with Tylenol. She was given a prescription for opiate pain killers but decided not to take it after reading about the side effects. He also set her up with an outpatient Zio patch to monitor for possible palpitations. Today she says her left shoulder pain is actually much better. She took some Tylenol this morning but is having almost no pain today. She is able to move it much better the yesterday She was out visiting friends with her today. After that they were stopping by [place] to slate picker a pizza for lunch and while in the car on the way home for [place] she had an episode where she became very short of breath with dizziness and presyncope. Related Data Home Medications ?Medication ?Instructions ?Recorded ?Confirmed sacubitril 97 mg-valsartan 103 mg 1 tab PO BID 01/17/23 04/25/24 tablet (Entresto) loperamide 2 mg capsule (Imodium 2 mg PO Q6H PRN 08/24/23 04/25/24 A-D) cyanocobalamin (vitamin B-12) 1,000 mcg PO QDAY 01/17/24 04/25/24 1,000 mcg capsule torsemide 20 mg tablet 20 mg PO DAILY 04/25/24 04/25/24 Previous Rx's ?Medication ?Instructions ?Recorded pantoprazole 20 mg tablet,delayed 20 mg PO QDAY GERD #90 tabs 05/19/23 release diltiazem HCl 240 mg 240 mg PO DAILY #90 caps 09/20/23 capsule,extended release 24 hr potassium chloride 20 mEq 20 meq PO QDAY Hypokalemia #90 tabs 04/08/24 tablet,extended release(part/cryst) hydrocodone 5 mg-acetaminophen 325 1 tab PO TID PRN pain #30 tabs 04/24/24 mg tablet Allergies Allergy/AdvReac Type Severity Reaction Status Date / Time Cephalosporins Allergy Intermediate Diarrhea Verified 04/25/24 12:33 levofloxacin [From Levaquin] Allergy Numbness Verified 04/25/24 12:33 Quinolones Allergy Anaphylaxis Verified 04/25/24 12:33 escitalopram AdvReac Intermediate Diarrhea Verified 04/25/24 12:33 diphenhydramine AdvReac Edema Verified 04/25/24 12:33 [From Benadryl] metoprolol AdvReac Rash Verified 04/25/24 12:33 [facility] Medical History (Updated 04/27/24 @ 20:00 by Roe Hurst MD) Syncope ?R55 - Syncope and collapse (ICD-10) Onychomycosis ?B35.1 - Tinea unguium (ICD-10) Dysuria ?R30.0 - Dysuria (ICD-10) Neck pain ?M54.2 - Cervicalgia (ICD-10) Shingles ?B02.9 - Zoster without complications (ICD-10) History of methicillin resistant Staphylococcus aureus infection (2013) ?Z86.14 - Personal history of Methicillin resistant Staphylococcus aureus infection (ICD-10) History of malignant neoplasm of skin (2013) ?Z85.828 - Personal history of other malignant neoplasm of skin (ICD-10) History of colonic polyps (04/06/10) ?Z86.010 - Personal history of colonic polyps (ICD-10) Surgical History History of Mohs micrographic surgery for skin cancer ?Z85.828 - Personal history of other malignant neoplasm of skin (ICD-10) ?Z98.890 - Other specified postprocedural states (ICD-10) History of lumbar discectomy (2005) ?Z98.890 - Other specified postprocedural states (ICD-10) History of bone marrow biopsy (05/22/20) ?Z98.890 - Other specified postprocedural states (ICD-10) History of hysterectomy (1997) ?Z90.710 - Acquired absence of both cervix and uterus (ICD-10) History of cataract extraction ?Z98.49 - Cataract extraction status, unspecified eye (ICD-10) History of arthroscopy of right knee (03/20/08) ?Z98.890 - Other specified postprocedural states (ICD-10) Family History Mother Coronary artery disease High blood pressure Father Coronary artery disease Brother Coronary artery disease High blood pressure Sister Esophageal cancer High blood pressure Social History (Reviewed 04/25/24 @ 12:38 by Sandra Pisano ~ [facility], [facility]) What is your current living situation?: I presently have a place to live Problems where you live: no known problems In the past 12 months, utilities in danger of being shut off: no Smoking Status: Former smoker What tobacco products do you use: cigarettes Smoking quit date/years: >15 years ago Do you use any of these nicotine containing products: None Second hand tobacco smoke exposure: No How often do you have a drink containing alcohol: 4 or more times a week How many standard drinks containing alcohol do you have on a typical day: 1 or 2 How often do you have six or more drinks on one occasion: Never AUDIT-C Alcohol total score: 4 Non-prescribed substance use: denies use How often does anyone, including family, friends and others, physically hurt you : How often does anyone, including family, friends and others, insult or talk down to you: How often does anyone, including family, friends and others, threaten you with harm: How often does anyone, including family, friends and others, scream or curse at you: Little interest or pleasure in doing things: not at all Feeling down, depressed, or hopeless: not at all service: No Exam Narrative: Exam Narrative: Constitutional: Appears well-developed and well-nourished. Alert. Conversant. Non toxic. HENT: Head: Atraumatic. Nose: Nose normal. Mouth/Throat: Oral mucosa is clear and moist. no trismus. Pharynx normal. Tonsils symmetric. No tonsillar enlargement, erythema, or exudate. Eyes: Conjunctivae normal. EOM normal. Pupils equal, round, and reactive to light. No scleral icterus. Neck: Normal range of motion. Neck supple. No tracheal deviation present. Cardiovascular: Normal rate, regular rhythm. No gallop. No friction rub. No murmur heard. Symmetric radial artery pulses Pulmonary/Chest: Effort normal. No stridor. No respiratory distress. No wheezes. No rales. No rhonchi . No tenderness. Abdominal: Soft. Bowel sounds normal. No distension. No mass. No tenderness. No rebound. No guarding. Musculoskeletal: RUE: Normal range of motion. No tenderness. No deformity LUE: Ecchymosis on left shoulder and left lateral chest wall. She actually has fairly good range of motion in her shoulder. Normal elbow and wrist range of motion. No tenderness. No deformity RLE: Normal range of motion. No edema. No tenderness. No deformity LLE: Normal range of motion. No edema. No tenderness. No deformity Neurological: Alert and oriented to person, place, and time. Normal strength. CN II-VII intact. No sensory deficit. GCS eye subscore is 4. GCS verbal subscore is 5. GCS motor subscore is 6. Normal coordination Skin: Skin is warm and dry. No rash noted. No pallor. Normal capillary refill. Psychiatric: Normal mood. Normal affect. Const: Vital Signs, click to edit/add: Vital Signs - 24 hr 04/27/24 16:17 04/27/24 17:06 04/27/24 17:08 Temperature 97.5 F L Pulse Rate 83 Pulse Rate [Right Pulse Oximeter] 89 86 Respiratory Rate 26 H 16 Blood Pressure 182/88 H Blood Pressure [Ri ght Upper Arm] 185/80 H 182/88 H Pulse Oximetry 100 95 100 Oxygen Delivery Me thod Room Air Room Air 04/27/24 17:09 04/27/24 17:15 04/27/24 17:33 Temperature Pulse Rate 84 84 90 Pulse Rate [Right Pulse Oximeter] Respiratory Rate Blood Pressure Blood Pressure [Ri ght Upper Arm] Pulse Oximetry 100 100 99 Oxygen Delivery Me thod 04/27/24 17:34 04/27/24 17:45 04/27/24 18:00 Temperature Pulse Rate 90 86 87 Pulse Rate [Right Pulse Oximeter] Respiratory Rate Blood Pressure 195/89 H Blood Pressure [Ri ght Upper Arm] Pulse Oximetry 99 99 100 Oxygen Delivery Me thod 04/27/24 18:01 04/27/24 18:15 04/27/24 18:30 Temperature Pulse Rate 84 84 85 Pulse Rate [Right Pulse Oximeter] Respiratory Rate Blood Pressure 194/86 H Blood Pressure [Ri ght Upper Arm] Pulse Oximetry 100 99 99 Oxygen Delivery Me thod 04/27/24 18:45 04/27/24 19:00 04/27/24 19:01 Temperature Pulse Rate 83 84 89 Pulse Rate [Right Pulse Oximeter] Respiratory Rate Blood Pressure 162/93 H Blood Pressure [Ri ght Upper Arm] Pulse Oximetry 99 98 98 Oxygen Delivery Me thod Course Vital Signs Vital signs: Initial Vital Signs Temperature 97.5 F L 04/27/24 16:17 Temperature Source Temporal Artery Scan 04/27/24 16:17 Pulse Rate 89 04/27/24 16:17 Pulse Rhythm Regular 04/27/24 16:17 Pulse Strength 3+ Normal 04/27/24 16:17 Respiratory Rate 26 H 04/27/24 16:17 Blood Pressure 185/80 H 04/27/24 16:17 Blood Pressure Mean 115 H 04/27/24 16:17 Blood Pressure Position Sitting 04/27/24 16:17 Pulse Oximetry 100 04/27/24 16:17 Oxygen Delivery Method Room Air 04/27/24 16:17 Vital Signs Temperature 97.5 F L 04/27/24 16:17 Pulse Rate 89 04/27/24 16:17 Respiratory Rate 26 H 04/27/24 16:17 Blood Pressure 185/80 H 04/27/24 16:17 Pulse Oximetry 100 04/27/24 16:17 Oxygen Delivery Method Room Air 04/27/24 16:17 Temperature 97.5 F L 04/27/24 16:17 Pulse Rate 89 04/27/24 19:01 Respiratory Rate 16 04/27/24 17:06 Blood Pressure 162/93 H 04/27/24 19:01 Pulse Oximetry 98 04/27/24 19:01 Oxygen Delivery Method Room Air 04/27/24 17:06 Medical Decision Making MDM Narrative Medical decision making narrative: This patient presents to the ER today for evaluation of a self-limited episode of dyspnea that occurred while she was riding in her car rest. Differential was broad. No evidence of palpitations, syncope or other cardiac dysrhythmia. EKG and interior decorator paperhanging shows sinus rhythm. She did have a syncopal event a few days ago. She is already wearing an outpatient Holter monitor. At this point I do not think she needs to be hospitalized for interior decorator paperhanging. We considered possible ACS, however workup with EKG and delta troponin is negative. based on workup so far, I do not think the patient needs to be admitted for further sets of enzymes. I would recommend outpatient follow-up to consider stress testing EKG shows no evidence for pericarditis. Clinical presentation not suggestive of myocarditis. Chest x-ray shows no evidence for pneumonia, pneumothorax, pulmonary edema, pleural effusion, rib fracture, cardiomegaly. Mediastinum is normal on the x-ray. The patient has no chest pain, no ripping or tearing pain through to the back and has symmetric pulses on exam, no other acute neuro findings so I doubt aortic dissection. Risk of radiation and contrast exposure would outweigh the benefit of CT angiogram. We considered PE for this patient. D-dimer is below the cutoff for age adjusted D-dimer so will hold off on CT PA. No wheezing or bronchospasm to suggest COPD/asthma. No recent cough. No fever. No evidence for pneumonia. COVID influenza swab negative. No signs of chest wall cellulitis, shingles, chest wall injury. She is recovering nicely from her recent left shoulder fracture. Urinalysis normal. With reasonable clinical confidence, I think the patient is safe for outpatient follow up. Discussed return precautions. Questions answered. Patient voices comfort with the plan. Lab Data Labs: Lab Results 04/27/24 04/27/24 04/27/24 Range/Units 17:26 17:34 17:46 WBC 13.54 H (4.50-11.00) K/uL RBC 4.10 (4.00-5.20) m/uL Hgb 13.3 (12.0-16.0) gm/dL Hct 39.6 (33.0-51.0) % MCV 97 (80-100) fL MCH 32 (26-34) pg MCHC 34 (32-36) gm/dL RDW Coeff of [place] 11.6 (11.5-15.5) % Plt Count 337 (140-440) K/uL Neut % (Auto) 78.0 H (42.0-72.0) % Lymph % (Auto) 11.2 L (20-44) % [place] % (Auto) 9.8 (0.0-11.0) % Eos % (Auto) 0.4 (0.0-7.0) % Baso % (Auto) 0.1 (0.0-3.0) % Neut # (Auto) 10.60 H (1.7-7.0) K/uL Lymph # (Auto) 1.50 (0.90-2.90) K/uL [place] # (Auto) 1.30 H (0.00-0.90) K/UL Eos # (Auto) 0.10 (0.00-0.50) K/uL Baso # (Auto) 0.00 (0.00-0.30) K/uL Abs Immat Gran (auto) 0.10 (0.00-0.30) K/uL Imm/Tot Granulo (auto) 0.5 % D-Dimer Quant (PE/DVT) 0.86 H (0.00-0.50) ug/ml Sodium 131 L (135-149) mmol/L Potassium 3.2 L (3.6-5.1) mmol/L Chloride 98 (96-114) mmol/L Carbon Dioxide 19 L (20-32) mmol/L Anion Gap 14 (7-15) mEq/L BUN 17 (7-30) mg/dL Creatinine 0.9 (0.5-1.5) mg/dL Estimated Creat Clear 32.79 Estimated GFR 62 ml/min Glucose 111 (60-115) mg/dL Calcium 9.8 (8.4-10.6) mg/dL NT-Pro-B Natriuret Pep 284 pg/mL Urine Color Yellow (Yellow) Urine Appearance Clear (Clear) Urine pH 7.5 (5.0-8.5) Ur Specific [place] 1.015 (1.000-1.030) Urine Protein Negative (Negative) Urine Glucose (UA) Negative (Negative) Urine Ketones Negative (Negative) Urine Blood Negative (Negative) Urine Nitrite Negative (Negative) Urine Bilirubin Negative (Negative) Urine Urobilinogen 0.2 (0.2-1.0) Ur Leukocyte Esterase Negative (Negative) Urine RBC 0-2 (0-2) Urine WBC 0-2 (0-5) Ur Squamous Epith Cells Few (None-Few) Urine Bacteria None (None) SARS-CoV-2 (PCR) Negative SARS-CoV-2 (Negative) Influenza Type A (PCR) Negative PCR FLU A (Negative) Influenza Type B (PCR) Negative PCR FLU B (Negative) POC Troponin I 0.01 (0.01-0.04) ng/ml 04/27/24 Range/Units 19:42 WBC (4.50-11.00) K/uL RBC (4.00-5.20) m/uL Hgb (12.0-16.0) gm/dL Hct (33.0-51.0) % MCV (80-100) fL MCH (26-34) pg MCHC (32-36) gm/dL RDW Coeff of Logan (11.5-15.5) % Plt Count (140-440) K/uL Neut % (Auto) (42.0-72.0) % Lymph % (Auto) (20-44) % [place] % (Auto) (0.0-11.0) % Eos % (Auto) (0.0-7.0) % Baso % (Auto) (0.0-3.0) % Neut # (Auto) (1.7-7.0) K/uL Lymph # (Auto) (0.90-2.90) K/uL [place] # (Auto) (0.00-0.90) K/UL Eos # (Auto) (0.00-0.50) K/uL Baso # (Auto) (0.00-0.30) K/uL Abs Immat Gran (auto) (0.00-0.30) K/uL Imm/Tot Granulo (auto) % D-Dimer Quant (PE/DVT) (0.00-0.50) ug/ml Sodium (135-149) mmol/L Potassium (3.6-5.1) mmol/L Chloride (96-114) mmol/L Carbon Dioxide (20-32) mmol/L Anion Gap (7-15) mEq/L BUN (7-30) mg/dL Creatinine (0.5-1.5) mg/dL Estimated Creat Clear Estimated GFR ml/min Glucose (60-115) mg/dL Calcium (8.4-10.6) mg/dL NT-Pro-B Natriuret Pep pg/mL Urine Color (Yellow) Urine Appearance (Clear) Urine pH (5.0-8.5) Ur Specific [place] (1.000-1.030) Urine Protein (Negative) Urine Glucose (UA) (Negative) Urine Ketones (Negative) Urine Blood (Negative) Urine Nitrite (Negative) Urine Bilirubin (Negative) Urine Urobilinogen (0.2-1.0) Ur Leukocyte Esterase (Negative) Urine RBC (0-2) Urine WBC (0-5) Ur Squamous Epith Cells (None-Few) Urine Bacteria (None) SARS-CoV-2 (PCR) (Negative) Influenza Type A (PCR) (Negative) Influenza Type B (PCR) (Negative) POC Troponin I 0.00 L (0.01-0.04) ng/ml Imaging Data Chest x-ray: Attestation: I have reviewed the pertinent imaging results. Radiologist's impression: IMPRESSION: No acute cardiopulmonary abnormality. ECG Data Attestation: I personally reviewed and interpreted this ECG as follows: Interpretation: Normal sinus rhythm Rate: 81 TN: 180 QRS axis: Left axis deviation No pathologic Q-waves. ST segment/T wave: No ST segment elevation or depression QTc: 476 Discharge Plan Discharge Clinical Impression: Acute dyspnea Patient Disposition: Home, Self-Care Condition: Stable Instructions: Dyspnea (ED) Additional Instructions: As we discussed, monitor your symptoms carefully and if you have any more spells of trouble breathing, lightheadedness, or any episodes of chest pain, please come back to the ER right away to be rechecked. Please recheck with your regular doctor this week to arrange a stress test and follow-up on the results of your heart workup. Prescriptions: No Action Entresto 97-103 mg tablet 1 tab PO BID cyanocobalamin (vitamin B-12) 1,000 mcg capsule 1,000 mcg PO QDAY hydrocodone-acetaminophen 5-325 mg tablet 1 tab PO TID PRN (Reason: pain) Qty: 30 0RF loperamide [Imodium A-D] 2 mg capsule 2 mg PO Q6H PRN torsemide 20 mg tablet 20 mg PO DAILY pantoprazole 20 mg tablet,delayed release (DR/EC) 20 mg PO QDAY Qty: 90 3RF diltiazem HCl 240 mg capsule,extended release 24hr 240 mg PO DAILY Qty: 90 3RF potassium chloride 20 mEq tablet,ER particles/crystals 20 meq PO QDAY Qty: 90 1RF Follow Up/Referrals: Fred Vaca MD [Primary Care Provider] - Stand Alone Forms: [facility] Info Instructions
--- NOTE | 2024-04-27 17:26 | CRLHL7_ITS ---
For Patients: As a result of the Century Cures Act, medical imaging exams and procedure reports are released immediately into your electronic medical record. You may view this report before your referring provider. If you have questions, please contact your health care provider. INDICATION: Dyspnea. TECHNIQUE: Chest 2 views. COMPARISON: Chest x-ray 03/01/2022. FINDINGS: The heart is not abnormally enlarged. The trachea is midline. There is no confluent airspace opacity. No pleural effusion or pneumothorax. No acute osseous abnormality. IMPRESSION: No acute cardiopulmonary abnormality. Dictated by Manav Patel MD @ 04/27/2024 6:19:46 PM (Electronically Signed)
[2024-04-27 17:48] LABS: Appearance Urine Clear (Clear); Bilirubin Urine Negative (Negative); Blood Urine Negative (Negative); Color Urine Yellow (Yellow); Glucose Urine Negative (Negative); Ketones Urine Negative (Negative); Leukocyte Esterase Urine Negative (Negative); Nitrite Urine Negative (Negative); Protein Urine Negative (Negative); Specific Gravity Urine 1.015 (1.000-1.030); Urobilinogen Urine 0.2 (0.2-1.0); pH Urine 7.5 (5.0-8.5)
--- OUTSIDE RECORDS SUMMARY | 2024-04-27 17:50 | XMS_ITS ---
Author Organization [facility] Address [address] [place] [address] Care Team Providers Care Instrument And Controls Technician Name Role Phone Unavailable Unavailable Unavailable Surgery Details Not on file Complications Check Surgery Details section. Procedure Estimated Blood Loss Check Surgery Details section. Procedure Findings Check Surgery Details section. Procedure Specimens Taken Check Surgery Details section.
--- OUTSIDE RECORDS SUMMARY | 2024-04-27 17:50 | XMS_ITS | Clinical Summary ---
Author Organization [facility] Address [address] [place] [address] Care Team Providers Care Per Diem Rn Name Role Phone Unavailable Primary Care Provider Unavailabl e Source Comments Patient records contain information from all sites at [facility]. For routine questions regarding patient records, call [phone] during business hours, M-F 8:00 AM - 5:00 PM Central Time. Record requests for emergency care only can be directed to [phone] at any time.[facility] Allergies Active Allergy Reactions Criticality Noted Date [...] ordered by prescriber ? ? Contact RN district manager primary care sales for sudden weight gain or worsening symptoms ? ? Contact EMS for emergent conditions Current functional limitations, or assistive devices/DME used: bathroom scale, blood pressure cuff Current Community Resources: [facility] (P: [phone]; ) Problem Noted Date Diagnosed Date Tachycardia 12/02/2020 Hypertensive Heart Disease With Heart Failure Encounters Date Type Department Care Team Description 02/01/2024 2:00 PM CDT Office Visit Department of Cardiovascular Medicine in [place], [place] [address] [place] [address] Siobhan Yuan, YOVANI, C.N.P. Hypertensive Heart Disease With Heart Failure (HCC) (Primary Dx) 02/01/2024 9:17 AM CDT - 02/01/2024 11:59 PM CDT Hospital Encounter Department of Radiology, [facility], in [place], [place] [address] [place] [address] Timur Torres M.D. Unspecified Diastolic (Congestive) Heart Failure (HCC) Discharge Disposition: Home or Self Care 02/01/2024 8:54 AM CDT - 02/01/2024 9:16 AM CDT Hospital Encounter Department of Laboratory Medicine and Pathology, [facility], in [place], [place] [address] [place] [address] Timur Torres M.D. Unspecified Diastolic (Congestive) Heart Failure (HCC) Discharge Disposition: Home or Self Care from Last 3 Months Immunizations Name Administration [...] drink = 0.6 oz pur e alcohol) [facility] Utilities Answer Date Recorded In the past 12 months has th e electric, gas, oil, or water company threatened [...] often do you attend chur ch or anabaptist services? 1 to 4 times per year [...] and heating? Not hard at all 11/27/2020 [facility]at [facility] - Occupational Stress [...] Additional history exists Sodium Level 01/31/2025 02/01/2024, 10/23, 04/06/2022, Additional history exists DTaP,Tdap,and Td Vaccines [...] CDT) Ventricular Rate ECG/Min 85 BPM MUSE LA Interval 178 ms MUSE QRSD Interval 96 ms MUSE QT Interval 376 ms MUSE QTC Interval 447 ms MUSE P [place] 70 degrees MUSE R [place] -51 degrees MUSE T Wave [place] 50 degrees MUSE 02/01/2024 9:51 AM CDT [...] CDT Timur Torres M.D. LAB BLOOD ADD-ON [facility] [address] [place] [address], [facility] [place] [address] * NT-Pro B-Type Natriuretic Peptide (BNP) (02/01/2024 [...] M.D. LAB BLOOD ADD-ON Performing Organization Address [facility] Co de Phone Number [facility] [address] [place] [address], [facility] [address] [place] [address] * (ABNORMAL) CBC without Differential (02/01/2024 9:09 [...] CDT Timur Torres M.D. LAB BLOOD ADD-ON [facility] [address] [place] [address], [facility] [address] [place] [address] * (ABNORMAL) Comprehensive Metabolic Panel (02/01/2024 9:09 AM CDT) Potassium, S 4.1 3.6 - 5.2 mmol/L [...] CDT Timur Torres M.D. LAB BLOOD ADD-ON [facility] [address] [place] [address], [place] D[facility] [place] [address] [place] [address] from Last 3 Months
--- OUTSIDE RECORDS SUMMARY | 2024-04-27 17:50 | XMS_ITS | Encounter Summary ---
Author Organization [facility] Address [address] [place] [address] Care Team Providers Care Cigar Head Puncher Name Role Phone Unavailable Primary Care Provider Unavailabl e Encounter Details Date Type Department Care Team (Latest Contact Info) Description 02/01/2024 8:54 AM CDT - 02/01/2024 9:16 AM CDT Hospital Encounter Department of Laboratory Medicine and Pathology, [place], [place] [address] [place] [address] Timur Torres M.D. [address] [place] [phone] Unspecified Diastolic (Congestive) Heart Failure (HCC) Discharge Disposition: Home or Self Care Social History Tobacco Use Types Packs/Day Years Used Date Smoking Tobacco: Former Cigarettes 0 01/20/1955 - 09/07/1969 Smokeless Tobacco: Never Alcohol Use Standard Drinks/Week Comments Yes 5 (1 standard drink = 0.6 oz pur e alcohol) [facility] Utilities Answer Date Recorded In the past 12 months has [employer] electric, gas, oil, or water company threatened [...] often do you attend chur ch or restorationist services? 1 to 4 times per year 11/27/2020 Do you belong to any clubs o r organizations such as latter-day groups, unions, fraternal or athletic groups, or [...] and heating? Not hard at all 11/27/2020 [facility] - Occupational [...] your living situation today? I have a [facility] place to live 01/29/2024 Education Answer [...] M.D. LAB BLOOD ADD-ON Performing Organization Address City/[facility] Co de Phone Number [facility] 200 [place], [place] [id number] [place] [address] * NT-Pro B-Type Natriuretic Peptide (BNP) (02/01/2024 9:09 AM CDT) Pathologist [facility] NT-Pro BNP 215 <=540 pg/mL 02/01/2024 10:39 [...] M.D. LAB BLOOD ADD-ON Performing Organization Address [facility] Co de Phone Number [facility] [address] [place], [place] [id number] [place] [address] * (ABNORMAL) Comprehensive Metabolic Panel (02/01/2024 9:09 AM CDT) [facility] Potassium, S 4.1 3.6 - 5.2 mmol/L [...] Timur Torres M.D. LAB BLOOD ADD-ON [facility] [address] [place] [address], [facility] [address] [place] [address] * (ABNORMAL) CBC without Differential (02/01/2024 9:09 [...] Timur Torres M.D. LAB BLOOD ADD-ON [facility] [place] [address] [place] [address], [facility] 200 [place] [address] documented in this encounter Visit Diagnoses Diagnosis Unspecified Diastolic (Congestive) Heart Failure (HCC) documented in this encounter
--- OUTSIDE RECORDS SUMMARY | 2024-04-27 17:50 | XMS_ITS | Encounter Summary ---
Author Organization [facility] Address [address] [place] [address] Care Team Providers Care Loss Prevention Auditor Name Role Phone Unavailable Primary Care Provider Unavailabl e Reason for Visit * Outpatient (Routine) - Closed Specialty Diagnoses / Procedures Referred By Yolanda bush Referred To Contact Cardiovascular Disease Timur Torres M.D. [address] [place] [phone] [facility] Referral ID Status Reason Start Date Expiration Date Visits Re quested Visits Authorized [id number] Closed 12/28/2021 12/28/2022 1 1 Encounter Details Date Type Department Care Team (Latest Contact Info) Description 02/01/2024 2:00 PM CDT Office Visit Department of Cardiovascular Medicine in [place], [place] [address] [place] [phone] Siobhan Yuan, YOVANI, C.N.P. [address] [place] [phone] Hypertensive Heart Disease With Heart Failure (HCC) (Primary Dx) Social History Tobacco Use Types Packs/Day Years Used Date Smoking Tobacco: Former Cigarettes 0 01/20/1955 - 09/07/1969 Smokeless Tobacco: Never Alcohol Use Standard Drinks/Week Comments Yes 5 (1 standard drink = 0.6 oz pur e alcohol) [facility] Utilities Answer Date Recorded In the past 12 months has [employer], gas, oil, or water [employer] threatened to shut off services in your [...] often do you attend chur ch or caodaism services? 1 to 4 times per year 11/27/2020 Do you belong to any clubs o r organizations such as alevism groups, unions, fraternal or athletic groups, or [...] and heating? Not hard at all 11/27/2020 [facility] - Occupational Stress Questionnaire Answer Date [...] your living situation today? I have a [facility] place to live 01/29/2024 Education [...] her care with her local care provider/primary insurance account executive. She will contact us in 2 years [...]
--- OUTSIDE RECORDS SUMMARY | 2024-04-27 17:50 | XMS_ITS | Encounter Summary ---
Author Organization [facility] Address [address] [place] [address] Care Team Providers Care Research Engineer Marine Equipment Name Role Phone Unavailable Primary Care Provider Unavailabl e Reason for Visit * Reason Onset Date Comments Pre-visit Intake 01/22/2024 Encounter Details Date Type Department Care Team (Latest Contact Info) Description 01/22/2024 11:30 AM CDT Clinical Communication Virtual Review in [address] [phone] Pre-visit Intake Social History Tobacco Use Types [...] often do you attend chur ch or christian services? 1 to 4 times per year 11/27/2020 Do you belong to any clubs o r organizations such as restoration groups, unions, fraternal or athletic groups, or [...] heating? Not hard at all 11/27/2020 [facility] Health - Occupational Stress Questionnaire Answer Date [...] place to sleep or slept in a group home (including now)? No 11/27/2020 Nutrition Answer Date [...]
--- OUTSIDE RECORDS SUMMARY | 2024-04-27 17:50 | XMS_ITS | Referral Summary ---
Author Organization [facility] Address 200 [place] [address] Care Team Providers Care Media Executive Name Role Phone Unavailable Primary Care Provider Unavailabl e Source Comments Patient records contain information from all sites at [facility]. For routine questions regarding patient records, call [phone] during business hours, M-F 8:00 AM - 5:00 PM Central Time. Record requests for emergency care only can be directed to [phone] at any time.[facility] Encounters Date Type Department Care Team Description 02/01/2024 9:17 AM CDT - 02/01/2024 11:59 PM CDT Hospital Encounter Department of Radiology, [facility] in [place], [place] [address] [place] [address] Timur Torres M.D. Unspecified Diastolic (Congestive) Heart Failure (HCC) Discharge Disposition: Home or Self Care 02/01/2024 8:54 AM CDT - 02/01/2024 9:16 AM CDT Hospital Encounter Department of Laboratory Medicine and Pathology, [facility] in [place], [place] [address] [place] [address] Timur Torres M.D. Unspecified Diastolic (Congestive) Heart Failure (HCC) Discharge Disposition: Home or Self Care 02/01/2024 2:00 PM CDT Office Visit Department of Cardiovascular Medicine in [place], [place] [address] [place] [address] Siobhan Yuan APRN, C.N.P. Hypertensive Heart Disease With Heart Failure (HCC) (Primary Dx) from Last 3 Months Allergies Active Allergy [...] by prescriber ? ? Contact RN rn medicare for sudden weight gain or worsening symptoms ? ? Contact EMS for emergent conditions Current functional limitations, or assistive devices/DME used: bathroom scale, blood pressure cuff Current Community Resources: [facility] (P: [phone]; ) Problem Noted Date Diagnosed Date Tachycardia 12/02/2020 Hypertensive Heart Disease With Heart Failure Immunizations Name Administration Dates Next Due PPSV23 07/24/2011 Tdap 07/24/2011 Social History Tobacco Use Types Packs/Day Years Used Date Smoking Tobacco: Former Cigarettes 0 01/20/1955 - 09/07/1969 Smokeless Tobacco: Never Alcohol Use Standard Drinks/Week Comments Yes 5 (1 standard drink = 0.6 oz pur e alcohol) [facility] Utilities Answer Date Recorded In the past 12 months has e electric, gas, oil, or water company [...] often do you attend chur ch or episcopalian services? 1 to 4 times per year 11/27/2020 Do you belong to any clubs o r organizations such as jewish groups, unions, fraternal or athletic groups, or [...] heating? Not hard at all 11/27/2020 [facility] Health - Occupational [...] living situation today? I have a [facility] place to live 01/29/2024 Education Answer [...] CDT) Ventricular Rate ECG/Min 85 BPM MUSE [place] Interval 178 ms MUSE QRSD Interval 96 ms MUSE QT Interval 376 ms MUSE QTC Interval 447 ms MUSE P [place] 70 degrees MUSE R [place] -51 degrees MUSE T Wave [place] 50 degrees MUSE 02/01/2024 9:51 AM CDT [...] CDT Timur Torres M.D. LAB BLOOD ADD-ON [facility] [address] [place] [address], [facility] [address] [place] [address] * NT-Pro B-Type Natriuretic Peptide (BNP) (02/01/2024 [...] CDT Timur Torres M.D. LAB BLOOD ADD-ON [facility] 200 [place] [address], [facility] 200 [place] [address] * (ABNORMAL) CBC without Differential (02/01/2024 9:09 AM CDT) Pathologist [facility] Hemoglobin 13.7 11.6 - 15.0 g/dL 02/01/2024 [...] CDT Timur Torres M.D. LAB BLOOD ADD-ON [facility] [address] [place] [address], [facility] DTL [facility] [address] [place] [address] * (ABNORMAL) Comprehensive Metabolic Panel (02/01/2024 9:09 [...] CDT Timur Torres M.D. LAB BLOOD ADD-ON [facility] [address] [place] [address], [facility]THospital Sisters [facility] [address] [place] [address] from Last 3 Months
--- OUTSIDE RECORDS SUMMARY | 2024-04-27 17:50 | XMS_ITS | Encounter Summary ---
Author Organization [facility] Address 200 [place] [address] Care Team Providers Care Outcomes Manager Name Role Phone Unavailable Primary Care Provider Unavailabl e Reason for Referral * Outpatient (Routine) - Closed Specialty Diagnoses / Procedures Referred By Contac t Referred To Contact Diagnoses Unspecified Diastolic (Congestive) Heart Failure (HCC) Procedures DX Chest AP or PA and Lateral 2 Views Timur Torres M.D. 200 [place] [address] [facility] Referral ID Status Reason Start Date Expiration Date Visits Re quested Visits Authorized [id number] Closed 12/28/2021 12/28/2022 1 1 Reason for Visit * Outpatient (Routine) - Closed Specialty Diagnoses / Procedures Referred By Contac t Referred To Contact Diagnoses Unspecified Diastolic (Congestive) Heart Failure (HCC) Procedures DX Chest AP or PA and Lateral 2 [place] [address] [facility] Referral ID Status Reason Start Date Expiration Date Visits Re quested Visits Authorized [id number] Closed 12/28/2021 12/28/2022 1 1 Encounter Details Date Type Department Care Team (Latest Contact Info) Description 02/01/2024 9:17 AM CDT - 02/01/2024 11:59 PM CDT Hospital Encounter Department of Radiology, [facility], in [place], [place] 200 [place] [address] Timur Torres M.D. 200 [place] [address] Unspecified Diastolic (Congestive) Heart Failure (HCC) Discharge Disposition: Home or Self Care Social History Tobacco Use Types Packs/Day Years Used Date Smoking Tobacco: Former Cigarettes 0 01/20/1955 - 09/07/1969 Smokeless Tobacco: Never Alcohol Use Standard Drinks/Week Comments Yes 5 (1 standard drink = 0.6 oz pur e alcohol) [facility] Utilities Answer Date Recorded In the past 12 months has [employer], gas, oil, or water company threatened to [...] often do you attend chur ch or orthodox services? 1 to 4 times per year 11/27/2020 Do you belong to any clubs o r organizations such as gnosticist groups, unions, fraternal or athletic groups, or [...] and heating? Not hard at all 11/27/2020 [facility] Health - Occupational [...] your living situation today? [facility] 01/29/2024 Education Answer [...]
--- OUTSIDE RECORDS SUMMARY | 2024-04-27 17:51 | XMS_ITS | Continuity of Care Document ---
Author Organization [facility] Address [address] [address] [place] [address] Phone Care Team Providers Care Short Filler Bunch Machine Operator Name Role Phone Inocencio Lechuga MD Unavailable [...] Active Procedures Procedure Date Offic/outpt E&m [facility] Offic/outpt E&m Estab Low-mod 6 Offic[facility]outpt [facility] Stool Kits Given C. Difficile Toxin Gene, GREGORIO Offic/outpt E&m Estab Mod-tx 2 16 Offic/outpt E&m Estab Low-mod 6 Offic/outpt E&m Estab Mod-tx 2 15 Breath Test Lactose Breath Test Fructose Sigmoidoscopy Flex; W/bx 1/mx 5 Level Iv-surg Path Gross/micro 15 Routine Serum Collection Offic/outpt E&m [facility] Routine Serum Collection C-reactive Prot Advance Directives Directive Yes / No Effective Date File Name No Information Encounters Encounter Description Practice Location Reason(s) For Visit Diagnoses Date Provider Providers Copied on Encounter [facility], [address] [address], [place], [id number], [place] tel:[phone] [facility] No Information 1 Ankush Painter. [address] [place] [address], [facility] [address], [place], [id number] , [place]. tel:[phone] Offic/outpt E&m [facility], [address] [address], [place], [id number], [place] tel:[phone] [facility] GI Symptoms or Concerns (chief complaint) Lymphocytic colitisDietary counseling and surveillance 0 Sarwat Sun. [address] [place] [address], [address], [place], [id number] , [place]. [phone] Referring Provider: Referral Self, USE FOR SELF REFERRALS. [facility], [address] [address], [place], [id number], [place] tel:[phone] [facility] No Information 0 Ankush Painter. [address] [place] [address], [id number] , [place]. tel: [phone] Offic/outpt E&m Estab Low-mod [facility], [address] [address], [place], [id number], [place] tel:[phone] [facility] GI Symptoms or Concerns (chief complaint) Gastroesophageal reflux disease, esophagitis presence not specifiedLymphoc ytic colitisDietary counseling and surveillanceElev ated blood-pressure reading, w/o diagnosis of htn 6 Hannah Alcantar. [address] [place] [address], [id number] , [place]. tel: [phone] Referring Provider: Referral Self, USE FOR SELF REFERRALS. Offic/outpt E&m Estab Mod-hi 2 [facility], [address] [address], [facility] [place], [id number], [place] tel:[phone] [facility] GI Symptoms or Concerns (chief complaint) Lymphocytic colitisDietary counseling and surveillanceElev ated blood-pressure reading, w/o diagnosis of htn 6 Geoff Monsalve. [facility] [place] [address], [place], [place], [id number] , [place]. tel: [phone] Referring Provider: Jonnathan Deleon, [address] [place] [address], [address]. tel:[phone] [facility], [address] [address], [place], [id number], [place] tel:[phone] [facility] Other specified noninfective gastroenteritis and colitis 6 Ankita Up. [address] [place] [facility], [facility] [address], [place], [place], [id number] , [place]. tel: [phone] Referring Provider: Referral Self, USE FOR SELF REFERRALS. Offic/outpt E&m Estab Mod-hi 2 [facility], [address] [address], [place], [id number], [place] tel:[phone] [facility] GI Symptoms or Concerns (chief complaint) Microscopic colitisDietary counseling and surveillance 6 Ankita Up. [address] [place] [facility], [place] [address], [place], [place], [id number] , [place]. [phone] Referring Provider: Jonnathan Deleon, [address] [place] [address], [address]. tel:[phone] Offic/outpt E&m Estab Low-mod [facility], [address] [address], [place], [id number], [place] tel:[phone] [facility] GI Symptoms or Concerns (chief complaint) Microscopic colitisDiarrheaD ietary counseling and surveillance 6 Hannah Alcantar. [address] [place] [address], [id number] , [place]. tel:[phone] Referring Provider: Referral Self, USE FOR SELF REFERRALS. Offic/outpt E&m Estab Mod-hi 2 [facility], [address] [address], [place], [id number], [place] tel:[phone] [facility] GI Symptoms or Concerns (chief complaint) Microscopic colitis 5 Chyna Nolan. [address] [place] [facility], [place] [address], [place], [place], [id number] , [place]. tel:[phone] Referring Provider: Referral Self, USE FOR SELF REFERRALS. [facility], [address] [address], [place], [id number], [place] tel:[phone] [facility] No Information 5 Hannah Alcantar. [address] [place] [address] [place], [id number] , [place]. tel:[phone] Referring Provider: Referral Self, USE FOR SELF REFERRALS. [facility], [address] [address], [place], [id number], [place] tel:[phone] [facility] No Information 6 5 Hannah Alcantar. [address] [facility] [place], [address], [facility], [place], [id number] , [place]. tel:[phone] Referring Provider: Referral Self, USE FOR SELF REFERRALS. [facility], [address] [address], [place], [id number], [place] tel:[phone] [facility] Diarrhea, unspecifiedOther specified noninfective gastroenteritis and colitis 0- 5 Hannah Alcantar. [address] [facility] [place], [address], [facility] [place], [place], [id number] , [place]. tel: [phone] Referring Provider: Referral Self, USE FOR SELF REFERRALS. [facility], [address] [address], [place], [place], [id number], [place] tel:[phone] [facility] No Information 0 5 Hannah Alcantar. [address] [place] [facility], [address], [facility] is, [place], [id number] , [place]. tel: [phone] Referring Provider: Referral Self, USE FOR SELF REFERRALS. [facility], [address] [address], [place], [place], [id number], [place] tel:[phone] [facility] Diarrhea 5 Hannah Alcantar. [address] [facility] [place], [address], [facility] is, [place], [id number] , [place]. tel: [phone] Referring Provider: Referral Self, USE FOR SELF REFERRALS. Offic/outpt E&m New Mod-hi [facility], [address] [address], [place], [place], [id number], [place] tel:[phone] [facility] GI Symptoms or Concerns (chief complaint) DiarrheaElevated blood-pressure reading, w/o diagnosis of htn 2 5 Hannah Alcantar. [address] [facility] [place], [address], [place], [place], [id number] , [place]. tel: [phone] Referring Provider: Referral Self, USE FOR SELF [...] Unspecified Payers Payer name Insurance type Covered democrat ID Authoriza tisabi(s) Lamont Dan [id number] Social History Type Description Quantity Date Captured [...] of lymphocytic colitis.Hyun was last seen at [facility] in 2015 for evaluation of chronic [...] of her diarrhea. Recently, she returned from [place], and the day after she arrived home from [place], she developed acute diarrhea. Patient reports that [...] in her stool.Workup in the past at [place] for her intermittent diarrhea included a colonoscopy with biopsies in May, which was negative and EGD in May with biopsies that were negative and those were of May of 2014. She also had blood work and stool studies there and an upper GI series all were negative.Workup here in [place] over the past six weeks has included [...]
--- OUTSIDE RECORDS SUMMARY | 2024-04-27 17:51 | XMS_ITS | Clinical Summary ---
Author Organization [facility] Address [place], [place] [address] Care Team Providers Care Toll Gate Tender Name Role Phone Chinyere Parnell NP Unavailable [phone] Nina Chaney MD Unavailable [phone] Jose Guardado MD Primary Care Provider [phone] Allergies Active Allergy Reactions Criticality Noted Date [...] (06/15/2020): 2019: ongoing itching, has seen 2 Lumber Stacker, had 2 skin biopsy, Though to be [...] (04/24/2016): Diagnosis made by Dr. Young of [facility], on biopsy May 2015, symptoms improved [...] negative. Then Consult with Dr. Young of [facility], recommending Flex Sig and stop sertraline [...] pansensitive, treatment with bactrim. December 2019: UTI [facility], culture proteus > 100,000. Hypokalemia 11/30/2014 [...] and vomiting Overview (06/21/2015): Work up at [facility] [place]. May 2015: work up diagnosis lymphocytic colitis, [...] ose) (Flu Clinic Only) 05/13/2016 COVID-19 vaccine ([employer] 30mcg/0.3mL) 12YO+ BIVALENT PF, MDV 04/11/2022 COVID-19 vaccine ([employer] 30mcg/0.3mL) PF, MDV 09/19/2020,08/29/2020 Influenza, High-dose [...] T Respiratory Rate 16 08/16/2022 2:01 PM FAMILY RESOURCE COORDINATOR Oxygen Saturation 100% 11/14/2022 1:41 PM CDT Inhaled Oxygen Concentration - - Weight 75.1 kg (165 lb 8 oz) 11/14/2022 1:41 PM CDT Height 161.3 cm (5' 3.5) 07/01/2022 12:47 PM CS T Body Mass Index 28.86 07/01/2022 12:47 PM FAMILY RESOURCE COORDINATOR Plan of Treatment Health Maintenance Due Date [...] Documents on File Type Date Recorded Patient Soaker Helper Expl anation Healthcare Directive 04/28/2021 021 * [...] 10:30 AM 10/21/2016 2:29 AM Care Teams Toll Gate Tender Relationship Specialty [place] [address] [place] [address] PCP - General Family Practice 11/14/22 Chinyere Parnell NP Hematology Nurse Practitioner - Adult 05/14/20 Nina Chaney MD Hematology Oncology 05/14/20
--- OUTSIDE RECORDS SUMMARY | 2024-04-27 17:51 | XMS_ITS | Continuity of Care Document ---
Author Organization [facility] Address [address] [facility] [address] [place] [address] Phone Care Team Providers Care Instruction Assistant Principal Name Role Phone Geo Ashraf DO Unavailable [...] on Encounter Offic/outpt E&m Estab Mod-hi 2 [facility], [address], [id number], [place] tel:[phone] CAMA [place] anemia (chief complaint)i rritable bowel syndrome (chief complaint) Anemia, unspecIBS Pascalejessy Guardado. [address], [id number], [place]. tel:[phone] Referring Provider: Isabelle Sow MD, [address], [place], [address]. tel:[phone] Offic/outpt E&m Estab Mod-la 2 [facility], [address], [id number], [place] tel:[phone] CAMA [place] diarrhea (chief complaint) IBSAnemia, unspec Pascalejessy Guardado. [address], [id number], [place]. tel:[phone] Referring Provider: Isabelle Sow MD, [address], [place], [address]. tel:[phone] [facility], [address], [id number], [place] tel:[phone] CAMA [place] Diarrhea [facility] Geo. [address], [place], [place], [id number], [place]. tel:[phone] Referring Provider: Isabelle Sow MD, [address], [place], [address]. [phone] [facility], [address], [place], [place], [id number], [place] tel:[phone] CAMA [place] Diarrhea [facility] Geo. [address], [place], [place], [id number], [place]. tel:[phone] Referring Provider: Isabelle Sow MD, [address], [place], [address]. [phone] [facility], [address], [place], [id number], [place] tel:[phone] SUMEETA [place] Diarrhea [facility] Geo. [address], [place], [id number], [place]. tel:[phone] Referring Provider: Isabelle Sow MD, [address], [place], [address]. tel:[phone] Offic/outpt E&m Estab Mod-hi 4 [facility], [address], [place], [id number], [place] tel:[phone] SUMEETA [place] diarrhea (chief complaint) Diarrhea [facility] Geo. [address], [place], [id number], [place]. tel:[phone] Referring Provider: Isabelle Sow MD, [address], [place], [address]. tel:[phone] Offic/outpt E&m Estab Low-mod [facility], [address], [place], [id number], [place] tel:[phone] [facility] follow up (chief complaint) Diarrhea Levi Flores. [address] [place], [address], [place]. tel:[phone] Referring Provider: Isabelle Sow MD, [address] [place], [address]. tel:[phone] [facility], [address] [facility] [address] [facility], [place], [id number], [place] tel:[phone] [facility] Diarrhea Levi Flores. [address] [place], [address], [place]. tel:[phone] Referring Provider: Nelson Diaz MD, [address] [place], [address]. Family History Family Member Type Diagnosis Age At Onset Problem (finding) Family history of asthm a Problem (finding) Family history of diabetes mellitus type 2 Problem (finding) No family history of Ca ncer, colon Payers Payer name Insurance type Covered alliance party ID Authoriza tion(s) Medicare Claims Administrators [id number] [facility] [id number] Social History Type Description Quantity Date Captured [...] levi were ok. Had another colon in pending sale to [facility] this summer and it was fine also. [...] all this Hospital follow up Seen at [facility] with chronic diarrhea, nausea and vomiting. Had neg EGD and colon there with biopsies. GI sxs have totally resolved. Pt just feels fatigued now. Functional Status Date Functional Assessmen t No Information Instructions Date Instruction Additional Infor mation No Information Assessments Type Assessment Date assessment Anemia, unspec assessment IBS Mental Status Date Cognitive Assessment Orientation - [place] ed to time, place, person, situation.Normal Orientation Patient Care Teams Name Effective Dates (start - stop) Status Members No Information
[2024-04-27 17:56] LABS: Basophils Percent Auto 0.1 % (0.0-3.0); Eosinophils Percent Auto 0.4 % (0.0-7.0); Hematocrit 39.6 % (33.0-51.0); Hemoglobin* 13.3 gm/dL (12.0-16.0); Immature Granulocytes Pct Auto 0.5 %; Lymphocytes Percent Auto 11.2 % (20-44); Mean Corpuscular HGB Conc 34 gm/dL (32-36); Mean Corpuscular Hemoglobin 32 pg (26-34); Mean Corpuscular Volume 97 fL (80-100); Monocytes Percent Auto 9.8 % (0.0-11.0); Platelet Count* 337 K/uL (140-440); RDW Coefficient of Variation % 11.6 % (11.5-15.5); White Blood Count* 13.54 K/uL (4.50-11.00)
[2024-04-27 18:00] LABS: Slide Review Reflex No
[2024-04-27 18:03] LABS: RBC Urine 0-2 (0-2); Squamous Epithelial Cell Urine Few (None-Few); WBC Urine 0-2 (0-5)
[2024-04-27 18:08] LABS: Chloride* 98 mmol/L (96-114); Sodium* 131 mmol/L (135-149)
[2024-04-27 18:09] LABS: Potassium* 3.2 mmol/L (3.6-5.1)
[2024-04-27 18:11] LABS: Creatinine* 0.9 mg/dL (0.5-1.5); Est. Creatinine Clearance* 32.79; Estimated Glomerular Filt Rate 62 ml/min
[2024-04-27 18:12] LABS: Anion Gap 14 mEq/L (7-15); Blood Urea Nitrogen* 17 mg/dL (7-30); Calcium* 9.8 mg/dL (8.4-10.6); Carbon Dioxide* 19 mmol/L (20-32); Glucose* 111 mg/dL (60-115)
[2024-04-27 18:13] LABS: D Dimer Quantitative* 0.86 ug/ml (0.00-0.50)
[2024-04-27 18:28] LABS: NT Pro B Type NatriureticPept* 284 pg/mL
[2024-04-27 18:33] LABS: PCR FLU A Negative PCR FLU A (Negative); PCR FLU B Negative PCR FLU B (Negative); SARS PCR* Negative SARS-CoV-2 (Negative)
[2024-04-27 18:46] LABS: Troponin, Point-of-Care* 0.01 ng/ml (0.01-0.04)
== END 2024-04-27 20:19 | disposition home or self-care (01) ==
PROVIDERS: Emergency Provider Emergency Medicine; PCP Internal Medicine
DX: R06.00 Dyspnea, unspecified (principal)
CPT/HCPCS: 36415; 71046; 80048; 81001; 83880; 84484; 85025; 85379; 87631; 99283

== ENCOUNTER 2024-05-28 13:16 | Outpatient (CLI) | payer MEDICARE, SELFPAY ==
--- OUTSIDE RECORDS SUMMARY | 2024-05-28 13:20 | XMS_ITS | Clinical Summary ---
Author Organization [facility] Address [place], [place] [address] Care Team Providers Care Assistant Winemaker Name Role Phone Chinyere Parnell NP Unavailable [phone] Nina Chaney MD Unavailable [phone] Jose Guardado MD Primary Care Provider [phone] Allergies Active Allergy Reactions Criticality Noted Date [...] (06/15/2020): 2019: ongoing itching, has seen 2 Film Loader, had 2 skin biopsy, Though to be [...] (04/24/2016): Diagnosis made by Dr. Young of [facility], on biopsy May 2015, symptoms improved [...] Consult with Dr. Young of [facility], recommending Flex Sig and stop sertraline [...] pansensitive, treatment with bactrim. December 2019: UTI [facility], culture proteus > 100,000. Hypokalemia 11/30/2014 [...] and vomiting Overview (06/21/2015): Work up at [facility] and [place]. May 2015: work up diagnosis lymphocytic colitis, [...] Mar 2015: doubled sertraline (Zoloft) to 50mg. Encounters Date Type Department Care Team Description 05/10/2024 Orders Only [facility] [address] [place] [address] Shanel Mccoy 1 scan: (1-Ord) Zio Report from Last 3 Months Immunizations Name Administration Dates Next Due Amb Influenza, Inact (High-d ose) (Flu Clinic Only) 05/13/2016 COVID-19 vaccine (Pfizer-Bio NTech 30mcg/0.3mL) 12YO+ BIVALENT PF, MDV 04/11/2022 [...] T Respiratory Rate 16 08/16/2022 2:01 PM RESORT DESK CLERK Oxygen Saturation 100% 11/14/2022 1:41 PM CDT Inhaled Oxygen Concentration - - Weight 75.1 kg (165 lb 8 oz) 11/14/2022 1:41 PM CDT Height 161.3 cm (5' 3.5) 07/01/2022 12:47 PM CS T Body Mass Index 28.86 07/01/2022 12:47 PM RESORT DESK CLERK Plan of Treatment Health Maintenance Due Date [...] Procedure Name Priority Date/Time Associated Diagnosis Comments EXTENDED HOLTER Routine 05/10/2024 Syncope and collapse XR DXA BONE DENSITY 2 SITES AXIAL Routine 01/02/2018 1:58 PM CDT Other specified menopausal and perimenopausal disorders At risk for decreased bone density from Last 3 Months or Most Recently Relevant to Health Maintenance Results * EXTENDED HOLTER (05/10/2024) Fred Vaca MD CARDIAC SERVICES ORD * XR DXA BONE DENSITY 2 SITES [...] Documents on File Type Date Recorded Patient Ice Handler Expl anation Healthcare Directive 04/28/2021 10/06/2 021 * Full Code (Latest Code Status [...] 10:30 AM 10/21/2016 2:29 AM Care Teams Assistant Winemaker Relationship Specialty [place] [id number] [facility] [place] [address] PCP - General Family Practice 11/14/22 Chinyere Parnell NP Hematology Nurse Practitioner - Adult 05/14/20 Nina Chaney MD Hematology Oncology 05/14/20
--- OUTSIDE RECORDS SUMMARY | 2024-05-28 13:20 | XMS_ITS | Referral Summary ---
Author Organization [facility] Address [address] [place] [address] Care Team Providers Care Still Operator Name Role Phone Unavailable Primary Care Provider Unavailabl e Source Comments Patient records contain information from all sites at [facility]. For routine questions regarding patient records, call [phone] during business hours, M-F 8:00 AM - 5:00 PM Central Time. Record requests for emergency care only can be directed to [phone] at any time.[facility] Allergies Active Allergy Reactions Criticality Noted Date Comments Diphenhydramine Edema (Reselect Reaction),Other (see comments) 01/17/2007 As of Mar 2017: taking Acetaminophen (Tylenol) PM ( tylenol and benadryl). Metoprolol Rash Low 10/07/2020 Quinolones Other (see comments),Rash 01/17/2007 numb from top - boattom Medications pantoprazole (Protonix) 20 mg EC tablet Take 1 tablet by mouth daily. 1 Active dilTIAZem CD (CARDIZEM CD/CARTIA XT) 240 mg 24 hr capsule Take 1 capsule by mouth daily. 1 Active loperamide (IMODIUM A-D) 2 mg tablet Take 1 tablet by mouth as needed. 0 Active fluticasone propionate (FLONASE ALLERGY RELIEF NASAL) Administer 1 spray into nostril(s) as needed. Active cyanocobalamin (Vitamin B-12) 1,000 mcg tablet Take 1 tablet by mouth daily. 2 Active potassium chloride (Klor-Con M) 20 mEq ER tablet Take 20 mEq by mouth daily. Active sacubitriL-vals kevin (Entresto) 97-103 mg per tablet Take 1 tablet by mouth 2 (two) times a day. 180 tablet 3 4 Active torsemide (Demadex) 20 mg tablet Take 1 tablet (20 mg total) by mouth daily. 90 tablet 3 4 Active Active Problems Patient Care Coordination No [...] by prescriber ? ? Contact RN healthcare customer service for sudden weight gain or worsening symptoms ? ? Contact EMS for emergent conditions Current functional limitations, or assistive devices/DME used: bathroom scale, blood pressure cuff Current Community Resources: [facility] (P: [phone]; ) Problem Noted Date Diagnosed Date Tachycardia 12/02/2020 Hypertensive Heart Disease With Heart Failure Immunizations Name Administration Dates Next Due PPSV23 07/24/2011 Tdap 07/24/2011 Social History Tobacco Use Types Packs/Day Years Used Date Smoking Tobacco: Former Cigarettes 0 01/20/1955 - 09/07/1969 Smokeless Tobacco: Never Alcohol Use Standard Drinks/Week Comments Yes 5 (1 standard drink = 0.6 oz pur e alcohol) [facility] Utilities Answer Date Recorded In the past 12 months has [employer], gas, oil, or water [employer] threatened to shut off services in your [...] any clubs o r organizations such as yazidi groups, unions, fraternal or athletic groups, or [...] your living situation today? I have a [facility] place to live 01/29/2024 Education Answer Date Recorded What is the highest level of school you have completed or the highest degree you have received? 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 LAB BLOOD ADD-ON Final Result [facility] [address] [place] [address], [place] DTL [facility] [address] [place] [address] from Last 3 Months or Most Recently Relevant to Health Maintenance Insurance [facility]
--- OUTSIDE RECORDS SUMMARY | 2024-05-28 13:20 | XMS_ITS | Clinical Summary ---
Author Organization [facility] Address [address] [place] [address] Care Team Providers Care Credit Portfolio Advisor Name Role Phone Unavailable Primary Care Provider Unavailabl e Source Comments Patient records contain information from all sites at [facility]. For routine questions regarding patient records, call [phone] during business hours, M-F 8:00 AM - 5:00 PM Central Time. Record requests for emergency care only can be directed to [phone] at any time.[facility] Allergies Active Allergy Reactions Criticality Noted Date [...] ordered by prescriber ? ? Contact RN patient care specialist for sudden weight gain or worsening symptoms ? ? Contact EMS for emergent conditions Current functional limitations, or assistive devices/DME used: bathroom scale, blood pressure cuff Current Community Resources: [facility] (P: [phone]; ) Problem Noted Date Diagnosed Date Tachycardia [...] drink = 0.6 oz pur e alcohol) [facility] Utilities Answer Date Recorded In the past 12 months has e [employer], gas, oil, or water [employer] threatened to shut off services in your [...] often do you attend chur ch or sabianism services? 1 to 4 times per year 11/27/2020 Do you belong to any clubs o r organizations such as taoist groups, unions, fraternal or athletic groups, or [...] and heating? Not hard at all 11/27/2020 [facility] [place] of Occupat ional Health - Occupational Stress [...] your living situation today? [facility] a [facility] place to live 01/29/2024 Education Answer Date Recorded What is the highest level of school you have completed or the highest degree you have received? 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 Gender Identity Female 10/31/2020 7:33 PM CDT [...] Fall Risk Screen (Annual) 07/24/2023 COVID-19 Vaccine ( season) 2024 05/22/2023, 04/11/2022, 10/21/2021, Additional history exists Influenza Vaccine (#1) 2024 , 04/06/2022, 04/17/2021, Additional history exists Creatinine Level (Kidney Function Test) 01/31/2025 02/01/2024, 11/14/2022, 04/06/2022, Additional history exists Potassium Level 01/31/2025 02/01/2024, 10/23, 04/06/2022, Additional history exists Sodium Level 01/31/2025 02/01/2024, 10/23, 04/06/2022, Additional history exists DTaP,Tdap,and Td Vaccines (4 - Td or Tdap) 01/07/2031 01/07/2021, 04/09/2012, 07/24/2011, Additional history exists Pneumococcal vaccine (65+ years) Completed 07/09/2015, 07/24/2011, 05/15/1996 Zoster Vaccines Completed 03/10/2018, 10/2017, 12/25/2007 RSV vaccine - (32-36 weeks) or 60+ years Completed 05/25/2023 IPV Vaccines Aged Out No longer eligi ble based on patient's age to complete this topic Procedures Procedure Name Priority Date/Time Associated Diagnosis [...] CDT Timur Torres M.D. LAB BLOOD ADD-ON Final Result [facility] [address] [place] [address], [facility] DTL [facility] [address] [place] [address] from Last 3 Months or Most Recently Relevant to Health Maintenance Insurance [facility]
--- OUTSIDE RECORDS SUMMARY | 2024-05-28 13:20 | XMS_ITS ---
Author Organization [facility] Address [address] [place] [address] Care Team Providers Care Nurse Practitioner Home Assessments Name Role Phone Unavailable Unavailable Unavailable Surgery Details Not on file Complications Check Surgery Details section. Procedure Estimated Blood Loss Check Surgery Details section. Procedure Findings Check Surgery Details section. Procedure Specimens Taken Check Surgery Details section.
--- NOTE | 2024-05-28 13:40 | CRLHL7_ITS ---
For Patients: As a result of the Century Cures Act, medical imaging exams and procedure reports are released immediately into your electronic medical record. You may view this report before your referring provider. If you have questions, please contact your health care provider. BILATERAL SCREENING MAMMOGRAM WITH COMPUTER-AIDED DETECTION AND TOMOSYNTHESIS TECHNIQUE: CC and MLO views were obtained. These mammographic images have been obtained using full-field digital technique. These mammographic images were interpreted with the benefit of computer-aided detection. Breast Tomosynthesis was used in this interpretation. COMPARISON FILM: 06/27/23. FINDINGS: There are scattered areas of fibroglandular density. IMPRESSION: There is no radiographic evidence for malignancy. ASSESSMENT: BI-RADS Category 2: Benign RECOMMENDATION: Routine screening mammogram in 1 year. A lay language report of this examination will be provided to the patient. Geo Marin M.D. Diagnostic Radiologist [email or web address] SP/Dictated by: Geo Marin MD @ 06/03/2024 10:58:00 AM (Electronically Signed)
== END 2024-05-28 13:17 | disposition home or self-care (01) ==
LOC: MAMMO 13:17
PROVIDERS: PCP Internal Medicine; Visit Provider Internal Medicine
DX: Z12.31 Encounter for screening mammogram for malignant neoplasm of breast (principal)
CPT/HCPCS: 77063; 77067

== ENCOUNTER 2024-05-29 14:00 | Outpatient (CLI) | payer MEDICARE, SELFPAY | END 2024-05-29 14:01 | disposition home or self-care (01) | LOC: NFLDREF 05-30 08:19 | PROVIDERS: PCP Internal Medicine; Referring Provider Internal Medicine; Visit Provider Internal Medicine | DX: R30.0 Dysuria (principal); G47.00 Insomnia, unspecified | CPT/HCPCS: 87086; 87186 ==

== ENCOUNTER 2024-06-14 11:53 | Outpatient (CLI) | payer MEDICARE, SELFPAY ==
--- OUTSIDE RECORDS SUMMARY | 2024-06-16 15:14 | XMS_ITS ---
Author Organization [facility] Address [address] [place] [address] Care Team Providers Care Microfilm Machine Operator Name Role Phone Unavailable Unavailable Unavailable Surgery Details Not on file Complications Check Surgery Details section. Procedure Estimated Blood Loss Check Surgery Details section. Procedure Findings Check Surgery Details section. Procedure Specimens Taken Check Surgery Details section.
--- OUTSIDE RECORDS SUMMARY | 2024-06-16 15:14 | XMS_ITS | Referral Summary ---
Author Organization [facility] Address [address] [place] [address] Care Team Providers Care Finished Carpet Inspector Name Role Phone Unavailable Primary Care Provider Unavailabl e Source Comments Patient records contain information from all sites at [facility]. For routine questions regarding patient records, call [phone] during business hours, M-F 8:00 AM - 5:00 PM Central Time. Record requests for emergency care only can be directed to [phone] at any time.[facility] Allergies Active Allergy Reactions Criticality [...] of a sick day plan when appropriate. Follow a low sodium diet 2,000 mg or less per day Weigh daily Increase awareness of symptoms indicating worsening heart failure and/or fluid retention Optimize medications Entresto as ordered by prescriber Contact RN associate director career services for sudden weight gain or worsening symptoms Contact EMS for emergent conditions Current functional limitations, or assistive devices/DME used: bathroom scale, blood pressure cuff Current Community Resources: [facility] (P: [phone]; ) Problem Noted Date Diagnosed Date Tachycardia 12/02/2020 Hypertensive Heart Disease With Heart Failure Immunizations Name Administration Dates Next Due PPSV23 07/24/2011 Tdap 07/24/2011 Social History Tobacco Use Types Packs/Day Years Used Date Smoking Tobacco: Former Cigarettes 0 01/20/1955 - 09/07/1969 Smokeless Tobacco: Never Alcohol Use Standard Drinks/Week Comments Yes 5 (1 standard drink = 0.6 oz pur e alcohol) [facility] Utilities Answer Date Recorded In the past 12 months has [employer], gas, oil, or water company threatened to [...] often do you attend chur ch or sikh services? 1 to 4 times per year 11/27/2020 Do you belong to any clubs o r organizations such as orthodoxy groups, unions, fraternal or athletic groups, or [...] heating? Not hard at all 11/27/2020 [facility] of Occupat ional Health - Occupational Stress [...] your living situation today? I have a [facility] place to live 01/29/2024 Education Answer Date Recorded What is the highest level of school you have completed or the highest degree you have received? 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 LAB BLOOD ADD-ON Final Result [facility] [address] [place] [address], [place] DTL [facility] [address] [place] [address] from Last 3 Months or Most Recently Relevant to Health Maintenance Insurance [facility]
--- OUTSIDE RECORDS SUMMARY | 2024-06-16 15:14 | XMS_ITS | Clinical Summary ---
Author Organization [facility] Address [address] [place] [address] Care Team Providers Care Top Screw Name Role Phone Unavailable Primary Care Provider Unavailabl e Source Comments Patient records contain information from all sites at [facility]. For routine questions regarding patient records, call [phone] during business hours, M-F 8:00 AM - 5:00 PM Central Time. Record requests for emergency care only can be directed to [phone] at any time.[facility] Allergies Active Allergy Reactions Criticality Noted Date [...] Entresto as ordered by prescriber Contact RN home care administrator for sudden weight gain or worsening symptoms Contact EMS for emergent conditions Current functional limitations, or assistive devices/DME used: bathroom scale, blood pressure cuff Current Community Resources: [facility] (P: [phone]; ) Problem Noted Date Diagnosed Date Tachycardia [...] drink = 0.6 oz pur e alcohol) [facility] Utilities Answer Date Recorded In the past 12 months has e [employer], gas, oil, or water [employer] threatened to shut off services in your [...] often do you attend chur ch or jew services? 1 to 4 times per year 11/27/2020 Do you belong to any clubs o r organizations such as roman catholic groups, unions, fraternal or athletic groups, [...] and heating? Not hard at all 11/27/2020 [facility] [place] of Occupat ional Health - Occupational Stress [...] your living situation today? I have a [facility] place to live 01/29/2024 Education Answer Date Recorded What is the highest level of school you have completed or the highest degree you have received? 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 LAB BLOOD ADD-ON Final Result [facility] [address] [place] [address], [place] DTL [facility] [address] [place] [address] from Last 3 Months or Most Recently Relevant to Health Maintenance Insurance [facility]
--- OUTSIDE RECORDS SUMMARY | 2024-06-16 15:14 | XMS_ITS | Clinical Summary ---
Author Organization [facility] Address [place], [place] [address] Care Team Providers Care [employer] Name Role Phone Chinyere Parnell NP Unavailable [phone] Nina Chaney MD Unavailable [phone] Allergies Active Allergy Reactions Criticality Noted Date [...] (06/15/2020): 2019: ongoing itching, has seen 2 Building Maintenance Engineer, had 2 skin biopsy, Though to be [...] (04/24/2016): Diagnosis made by Dr. Young of [facility], on biopsy May 2015, symptoms improved with budesonide 9mg orally. Mar 2016: symptoms recurrent. Lymphocytic colitis often is recurrent. It is linked to two medications you are taking - pantoprazole and Zoloft. I would stop both. If in two weeks you are still having problems, would do another course of budesonide. It may be available more cheaply from [facility]. It is fine to increase Imodium to 6 pills daily. If your symptoms worsen, need to consider another test for C diff as you recently took antibiotics. from GI Consult note. follow up. Diarrhea 05/13/2015 Overview (06/21/2015): 2013 and 2014: recurrent. Had work up in [place] 2013. Then Consult with Dr. Tanner April 2015 stool studies negative. Then Consult with Dr. Young of [facility], recommending Flex Sig and stop sertraline (Zoloft). [...] pansensitive, treatment with bactrim. December 2019: UTI [facility], culture proteus > 100,000. Hypokalemia 11/30/2014 Prediabetes 11/30/2014 Overview (11/30/2014): November 2014: fasting 102, Hemoglobin A1c was 6.3. Unspecified anemia 04/08/2010 Overview (08/03/2020): November 2014: Hemoglobin 11.4. January 2015: Hemoglobin 11.3, ordered repeat CBC, retic, [...] and vomiting Overview (06/21/2015): Work up at [facility] and [place]. 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 Respiratory Rate 16 08/16/2022 2:01 PM BRAZING MACHINE OPERATOR AUTOMATIC Oxygen Saturation 100% 11/14/2022 1:41 PM CDT Inhaled Oxygen Concentration - - Weight 75.1 kg (165 lb 8 oz) 11/14/2022 1:41 PM CDT Height 161.3 cm (5' 3.5) 07/01/2022 12:47 PM CS T Body Mass Index 28.86 07/01/2022 12:47 PM BRAZING MACHINE OPERATOR AUTOMATIC Plan of Treatment Health Maintenance Due Date Last Done Comments RSV vaccine for adults or (1 - 1-dose 75+ series) 01/20/2012 Medicare Wellness for age 65+ 04/07/2023 04/06/2022, 11/22/2010 Depression screening for age 12+ 04/27/2023 04/27/2022, 04/06/2022, 04/06/2022, Additional history exists BMI (ht and wt on same day) for age 18+ 07/01/2023 07/01/2022, 04/06/2022, 10/20/2021, Additional history exists COVID-19 vaccine series () 03/24/2024 04/11/2022, 09/19/2020, 08/29/2020 Influenza for age 65+ [...] Documents on File Type Date Recorded Patient [employer] Examiner Expl anation Healthcare Directive 04/28/2021 021 * [...] 10:30 AM 10/21/2016 2:29 AM Care Teams [employer] Relationship Specialty Start Date End Date Chinyere Parnell NP Hematology Nurse Practitioner - Adult 05/14/20 Nina Chaney MD Hematology Oncology 05/14/20
== END 2024-06-14 11:54 | disposition home or self-care (01) ==
LOC: NFLDREF 06-16 15:12
PROVIDERS: PCP Internal Medicine; Referring Provider Internal Medicine; Visit Provider Physician Assistant
DX: R30.0 Dysuria (principal); N39.0 Urinary tract infection, site not specified
CPT/HCPCS: 87086; 87186

== ENCOUNTER 2024-08-13 14:10 | Outpatient (CLI) | payer MEDICARE, SELFPAY | END 2024-08-13 14:11 | disposition home or self-care (01) | LOC: NFLDREF 08-14 00:37 | PROVIDERS: PCP Internal Medicine; Referring Provider Internal Medicine; Visit Provider Physician Assistant | DX: N39.0 Urinary tract infection, site not specified (principal); B96.20 Unspecified Escherichia coli [E. coli] as the cause of diseases classified elsewhere | CPT/HCPCS: 87086; 87186 ==